=== PATIENT | male | born 1950 | race Caucasian/White ===

== ENCOUNTER 2017-04-24 13:01 | Emergency (ER) | payer OTHER ==
[~2017-04-24] VITALS: Ht 175.3 cm; Wt 70.3 kg
[~2017-04-24 13:01] MED LIST: BLOOD PRESSURE PILL; CHOLESTEROL PILL; HYDROCODONE-AP1 EAC6 PO; IBUPROFEN 800800 M1 PO; METFORMIN HCL500 MG PO
[2017-04-24] MEDS ORDERED: LIPITOR10 MG PO (13:27)
[2017-04-24 13:36] LABS: URINE BILIRUBIN NEGATIVE (Negative); URINE BLOOD TRACE (Negative); URINE CLARITY CLEAR; URINE COLOR YELLOW; URINE GLUCOSE-RANDOM NEGATIVE (Negative); URINE KETONES NEGATIVE (Negative); URINE NITRITE-REFLEX NEGATIVE (Negative); URINE PROTEIN NEGATIVE (Negative); URINE SPECIFIC GRAVITY <= 1.005 (1.005-1.030); URINE UROBILINOGEN 0.2 E.U./dl (0.2-1.0)
[2017-04-24 13:37] LABS: URINE LEUKOCYTES-REFLEX 3+ (Negative)
[2017-04-24 13:41] LABS: ABSOLUTE BASOPHILS 0.1 thou/uL (0.0-0.2); ABSOLUTE EOSINOPHILS 0.2 thou/uL (0.0-0.7); ABSOLUTE LYMPHOCYTES 2.1 thou/uL (0.8-5.3); ABSOLUTE MONOCYTES 0.7 thou/uL (0.0-1.2); ABSOLUTE NEUTROPHILS 6.1 thou/uL (1.6-8.1); BASOPHILS 0.8 %; EOSINOPHILS 1.7 %; HEMATOCRIT 39.1 % (42.0-52.0); HEMOGLOBIN 12.9 gm/dL (14.0-18.0); LYMPHOCYTES 23.2 %; MCH 30.5 pg (26.0-34.0); MCHC 32.9 g/dL (28.0-37.0); MCV 92.7 fL (80.0-100.0); MONOCYTES 8.1 %; MPV 7.2 fl. (7.2-11.1); NUCLEATED RBCS 0 /100WBC; PLATELET COUNT* 403 thou/uL (150-400); POLYS 66.2 %; RBC 4.21 mil/uL (4.50-6.00); RDW-CV 14.3 % (10.5-14.5); WBC 9.2 thou/uL (4.0-11.0)
[2017-04-24 13:43] LABS: CASTS None Seen /LPF (None Seen); CRYSTALS None Seen /LPF (None Seen); MUCUS None Seen strn/LPF (None Seen); SQUAMOUS 0-3 Few /LPF (0-3); URINE RBC 3-10 Few /HPF (0-2)
[2017-04-24 13:49] LABS: CREATININE 0.8 mg/dL (0.6-1.3); POTASSIUM 5.1 mmol/L (3.5-5.1)
[2017-04-24 13:54] LABS: ALBUMIN 3.8 g/dL (3.4-5.0); TOTAL BILIRUBIN 0.3 mg/dL (<0.1-1.0)
[2017-04-24] MEDS ORDERED: PYRIDIUM200 MG PO (15:52)
[2017-04-24] MEDS ORDERED: NORCO 5-325 TA1 EACH PO (15:52)
[2017-04-24] MEDS ORDERED: BACTRIM DS TAB1 EACH PO (15:52)
[2017-04-24 16:02] VITALS: BP 149/83
== END 2017-04-24 16:02 | disposition home or self-care (01) ==
LOC: M.ERS 13:01
PROVIDERS: Nurse Practitioner Family
DX: R10.30 Lower abdominal pain, unspecified (principal); R31.9 Hematuria, unspecified; E11.9 Type 2 diabetes mellitus without complications; I10 Essential (primary) hypertension; F17.210 Nicotine dependence, cigarettes, uncomplicated

== ENCOUNTER 2017-05-03 09:54 | Inpatient (IN) | payer OTHER ==
[~2017-05-03] VITALS: Ht 175.3 cm; Wt 64.0 kg
[~2017-05-03 09:54] MED LIST changes: +BACTRIM DS TAB1 EACH PO; +LIPITOR10 MG PO; +NORCO 5-325 TA1 EACH PO; +PYRIDIUM200 MG PO
[2017-05-03 10:12] LABS: URINE BILIRUBIN NEGATIVE (Negative); URINE BLOOD NEGATIVE (Negative); URINE CLARITY SL CLOUDY; URINE COLOR ORANGE; URINE GLUCOSE-RANDOM TRACE (Negative); URINE KETONES NEGATIVE (Negative); URINE LEUKOCYTES-REFLEX TRACE (Negative); URINE PROTEIN 2+ (Negative); URINE SPECIFIC GRAVITY 1.025 (1.005-1.030)
[2017-05-03 10:13] LABS: URINE NITRITE-REFLEX POSITIVE (Negative)
[2017-05-03 10:19] LABS: SQUAMOUS 0-3 Few /LPF (0-3)
[2017-05-03 10:20] LABS: CASTS None Seen /LPF (None Seen); MUCUS 0-3 Light strn/LPF (None Seen); URIC ACID CRYSTALS >10 Many /LPF (None Seen); URINE RBC 0-2 Rare /HPF (0-2); URINE WBC-REFLEX 6-15 Few /HPF (0-5)
[2017-05-03 10:24] LABS: ABSOLUTE EOSINOPHILS 0.1 thou/uL (0.0-0.7); ABSOLUTE LYMPHOCYTES 1.9 thou/uL (0.8-5.3); ABSOLUTE MONOCYTES 0.7 thou/uL (0.0-1.2); ABSOLUTE NEUTROPHILS 7.1 thou/uL (1.6-8.1); BASOPHILS 0.4 %; EOSINOPHILS 1.5 %; HEMATOCRIT 36.2 % (42.0-52.0); MCH 30.7 pg (26.0-34.0); MCHC 33.2 g/dL (28.0-37.0); MCV 92.6 fL (80.0-100.0); MONOCYTES 7.1 %; MPV 6.7 fl. (7.2-11.1); NUCLEATED RBCS 0 /100WBC; PLATELET COUNT* 366 thou/uL (150-400); RBC 3.91 mil/uL (4.50-6.00); RDW-CV 13.8 % (10.5-14.5); WBC 9.9 thou/uL (4.0-11.0)
[2017-05-03 10:32] LABS: ANION GAP 9 mmol/L (7-16); BUN 24 mg/dL (7-18); CALCIUM 9.6 mg/dL (8.5-10.1); CHLORIDE 100 mmol/L (98-107); CO2 27 mmol/L (21-32); CREATININE 1.6 mg/dL (0.6-1.3); GLUCOSE 125 mg/dL (70-99); POTASSIUM 4.8 mmol/L (3.5-5.1); SODIUM 136 mmol/L (136-145)
[2017-05-03 10:39] LABS: ALBUMIN 3.9 g/dL (3.4-5.0); ALKALINE PHOSPHATASE 86 U/L (46-116); LIPASE 72 U/L (73-393); SGOT 21 U/L (15-37); SGPT 21 U/L (30-65); TOTAL BILIRUBIN 0.4 mg/dL (<0.1-1.0); TOTAL PROTEIN 8.1 g/dL (6.4-8.2); TROPONIN-I LEVEL <0.06 ng/mL (<0.06)
--- NOTE | 2017-05-03 11:58 | NUR ---
NIKKIE NOTIFIED UPON PT RETURN FROM CT. PT CONNECTED TO BP AND PULSE OX
--- NOTE | 2017-05-03 12:30 | NUR ---
pt provided a meal tray from dietary
[2017-05-03] MEDS ORDERED: CIPROFLOXACIN500 M1 PO (12:38)
[2017-05-03 15:00] VITALS: BP 153/83
[2017-05-03 15:11] VITALS: BP 150/75
[2017-05-03] MEDS ORDERED: HYDROCODONE-AP1 EAC6 PO (15:45)
--- NOTE | 2017-05-03 15:59 | NUR ---
ASSUMED CARE OF PATIENT AFTER TRANSFER TO ROOM 110 FROM EMERGENCY DEPARTMENT. PATIENT AWAKE, ALERT, AND ORIENTED APPROPRIATELY. PRESENT. ADMISSION DOCUMENTATION COMPLETED. COMPLAINS OF PAIN AND NAUSEA. GIVEN PRN MEDICATIONS, SEE EMAR FOR DOCUMENTATION. PATIENT DENIES NEEDS AT THIS TIME. CALL LIGHT WITHIN REACH. NURSING WILL CONTINUE TO MONITOR.
--- NOTE | 2017-05-03 18:03 | NUR ---
PATIENT REMAINS ALERT AND ORIENTED. MEDICATED FOR PAIN WITH PRN MEDICATIONS, SEE EMAR FOR DOCUMENTATION. PATIENT IS UP AD GIOVANNY. VITAL SIGNS STABLE. OXYGEN SATURATION WITHIN NORMAL LIMITS ON ROOM AIR. USES CALL LIGHT APPROPRIATELY, WITHIN REACH. DENIES NEEDS AT THIS TIME. NURSING WILL CONTINUE TO MONITOR.
[2017-05-03 20:00] VITALS: BP 135/64
--- NOTE | 2017-05-03 23:13 | NUR ---
THIS NURSE ASSUMES CARE OF PT AT 1930, PT IS ALERT AND ORIENTED X4, PT COMPLAINS OF LLQ AND LRQ PAIN , RATES 10/10, PT REPORTS THAT HE IS NOT GETTING THE SAME AMOUNT OF PAIN MEDS HE TAKES DAILY AT HOME AND WOULD LIKE THE DOSE INCREASED TO WHAT HE TAKES AT HOME, ORDERS HAVE BEEN OBTAINED, PT UP AD GIOVANNY, IV FLUIDS INFUSING, NEW IV TO LEFT FOREARM PLACED DUE TO PT COMPLAINING OF PAIN AT PREVIOUS IV SITE, PT RESTING IN BED AT THIS TIME, REPORT GIVEN TO MOHAMUD PEREZ AT 2912
[2017-05-04 00:18] VITALS: BP 121/76
[2017-05-04 04:01] LABS: HEMATOCRIT 32.5 % (42.0-52.0); HEMOGLOBIN 10.7 gm/dL (14.0-18.0); MCH 30.5 pg (26.0-34.0); MCHC 32.8 g/dL (28.0-37.0); RBC 3.49 mil/uL (4.50-6.00); RDW-CV 13.7 % (10.5-14.5); WBC 6.2 thou/uL (4.0-11.0)
[2017-05-04 04:18] LABS: CALCIUM 8.6 mg/dL (8.5-10.1); CREATININE 1.2 mg/dL (0.6-1.3); MAGNESIUM 1.6 mg/dL (1.8-2.4); POTASSIUM 4.8 mmol/L (3.5-5.1)
--- NOTE | 2017-05-04 05:33 | NUR ---
RESUMED CARE OF PATIENT, REPORT RECIEVED FROM KULWINDER PEREZ. I CONCUR WITH HER DOCUMENTATION. PT AWAKE MOST OF NIGHT. SLEEP MEDICINE GIVEN PER E-MAR, PT STATES THAT HE HAS TO TAKE "REALLY STRONG SLEEP PILLS" IN ORDER TO SLEEP. PT DID NOT STATE WHAT SLEEP PILLS HE TAKES. PT REPORTED SEVERE PAIN IN HIS LOWER ABDOMEN, PAIN MEDS GIVEN PER E-MAR. PT STATED THAT HE NORMALLY TAKES 5 OF HIS PAIN PILLS AT A TIME AT HIS HOUSE. WHEN QUESTIONED ABOUT TAKING THAT MUCH PT STATED THAT HE DOES NOT TAKE THAT MUCH, STATING "I JUST MEANT IT DOESN'T MATTER IF I TAKE ONE PILL OR FIVE PILLS, IT DOESN'T WORK ANY BETTER." PT ASKING IF HE CAN HAVE IV PAIN MEDS. IV PATENT, FLUIDS INFUSING. PT STATES HE IS VOIDING ADEQUATLY AND DOES NOT HAVE PAIN WHEN URINATING, BUT HAS STABBING PAIN AFTER URINATING. WILL CONTINUE WITH PLAN OF CARE.
[2017-05-04 08:00] VITALS: BP 106/72
--- NOTE | 2017-05-04 08:00 | NUR ---
ASSUMED CARE OF PATIENT. AM ASSESSMENT COMPLETE, DEFER TO COMPUTER CHARTING. ALERT ORINETED, ANXIOUS THIS AM- REASSURANCE GIVEN. TOLERATED AM MEAL, IV INFUSING. REPORTING HAVING LEFT LOWER ABD DISCOMFORT, WILL GIVE REPEAT PAIN MEDICATION TO ASSIST WITH PAIN CONTROL.
[2017-05-04 16:00] VITALS: BP 117/77
[2017-05-04 19:45] VITALS: BP 134/72
--- NOTE | 2017-05-05 06:39 | NUR ---
PATIENT HAS REMAINED ALERT AND ORIENTED X 4 THROUGHOUT THE SHIFT AND RESTING QUIETLY ON HOURLY ROUNDS. UP TO BR INDEPENDENTLY. STEADY GAIT. VOIDING ADEQUATELY. BM'S REPORTED YESTERDAY. RASH ON BACK THIS MORNING. PATIENT STATES PRE-EXISTING CONDITION IF HE DOESN'T SHOWER EVERYDAY. SHOWER PROVIDED. PAIN MEDICATIONS PROVIDED X 3 THIS SHIFT. HE GIVES DIFFERENT AREAS OF PAIN EACH TIME. ABDOMEN FROM BOWELS, THEN GROIN WITH ITCHING AND LASTLY BACK RASH. VITAL SIGNS STABLE. CONTINUE TO MONITOR.
[2017-05-05] MEDS ORDERED: SENNA-DOCUSATE1 EACH PO (09:18)
[2017-05-05] MEDS ORDERED: CEFUROXIME500 MG PO (09:18)
[2017-05-05] MEDS ORDERED: LEVSIN0.125 MG SUBLING (09:18)
[2017-05-05 09:55] VITALS: BP 134/72
--- NOTE | 2017-05-05 12:55 | NUR ---
RECIEVED REPORT FROM MOHAMUD AND ASSUMED CARE OF PT AT 0730.PT IS A/O X4 BUT VERY ANXIOUS AND FLIGHT OF THOUGHTS.VSS, LUNGS CLEAR, BM YESTERDAY.IV RIGHT AC AND LEFT FOREARM SALINE LOCKED AND PATENT.PT C/O PAIN 10/10 IN LOWER LEFT ABDOMEN RELIEVED BY MEDICATION. PT IS UP AD GIOVANNY IN ROOM.PT WAS LEFT RESTING IN BED WITH CALL LIGHT IN PLACE.WILL CONTINUE TO MONITOR. DR. LANE SAW PT OK FOR D/C.PT IVS REMOVED @ 1030. DISCHARGE PAPERWORK GONE OVER WITH PT WITH IN THE ROOM.SCRIPTS AND PAPERWORK GIVEN TO PT. ALL PERSONAL BELONGINGS GATHERED AND TAKEN WITH PT. WALKED OUT BY ANA MCKEON AND TO CAR @ 5144.
== END 2017-05-05 12:38 | disposition home or self-care (01) | DRG 689 ==
LOC: M.ERS 09:54 → M.TBA-ER 13:08 → M.ORTHSURG 13:08
PROVIDERS: Physician Assistant; ADMIT Internal Medicine
DX: N30.91 Cystitis, unspecified with hematuria (principal); N17.0 Acute kidney failure with tubular necrosis; E11.9 Type 2 diabetes mellitus without complications; I10 Essential (primary) hypertension; F17.210 Nicotine dependence, cigarettes, uncomplicated; Z85.46 Personal history of malignant neoplasm of prostate; Z79.899 Other long term (current) drug therapy

== ENCOUNTER 2017-05-28 09:12 | Emergency (ER) | payer OTHER ==
[~2017-05-28] VITALS: Ht 175.3 cm; Wt 61.2 kg
[~2017-05-28 09:12] MED LIST changes: +CEFUROXIME500 MG PO; +CIPROFLOXACIN500 M1 PO; +LEVSIN0.125 MG SUBLING; +SENNA-DOCUSATE1 EACH PO
[2017-05-28 09:36] LABS: ABSOLUTE EOSINOPHILS 0.1 thou/uL (0.0-0.7); ABSOLUTE LYMPHOCYTES 1.5 thou/uL (0.8-5.3); ABSOLUTE MONOCYTES 0.8 thou/uL (0.0-1.2); ABSOLUTE NEUTROPHILS 6.4 thou/uL (1.6-8.1); BASOPHILS 0.3 %; EOSINOPHILS 1.1 %; HEMATOCRIT 36.9 % (42.0-52.0); HEMOGLOBIN 12.2 gm/dL (14.0-18.0); LYMPHOCYTES 17.1 %; MCH 30.1 pg (26.0-34.0); MCV 91.3 fL (80.0-100.0); MONOCYTES 8.9 %; MPV 6.7 fl. (7.2-11.1); NUCLEATED RBCS 0 /100WBC; PLATELET COUNT* 466 thou/uL (150-400); POLYS 72.6 %; RBC 4.04 mil/uL (4.50-6.00); RDW-CV 14.5 % (10.5-14.5); WBC 8.9 thou/uL (4.0-11.0)
[2017-05-28 09:44] LABS: URINE BILIRUBIN NEGATIVE (Negative); URINE BLOOD NEGATIVE (Negative); URINE CLARITY CLEAR; URINE COLOR YELLOW; URINE GLUCOSE-RANDOM NEGATIVE (Negative); URINE KETONES NEGATIVE (Negative); URINE LEUKOCYTES-REFLEX NEGATIVE (Negative); URINE NITRITE-REFLEX NEGATIVE (Negative); URINE PROTEIN NEGATIVE (Negative); URINE SPECIFIC GRAVITY 1.015 (1.005-1.030); URINE UROBILINOGEN 0.2 E.U./dl (0.2-1.0)
[2017-05-28 09:45] LABS: CALCIUM 9.8 mg/dL (8.5-10.1); CREATININE 0.7 mg/dL (0.6-1.3); POTASSIUM 4.4 mmol/L (3.5-5.1)
[2017-05-28 09:49] LABS: ALBUMIN 3.4 g/dL (3.4-5.0); TOTAL BILIRUBIN 0.3 mg/dL (<0.1-1.0); TOTAL PROTEIN 8.4 g/dL (6.4-8.2)
[2017-05-28 12:50] VITALS: BP 152/76
== END 2017-05-28 12:51 | disposition home or self-care (01) ==
LOC: M.ERS 09:12
PROVIDERS: Personal Emergency Response Attendant
DX: G89.29 Other chronic pain (principal); R10.31 Right lower quadrant pain; M79.659 Pain in unspecified thigh; E11.9 Type 2 diabetes mellitus without complications; I10 Essential (primary) hypertension; F17.210 Nicotine dependence, cigarettes, uncomplicated; F12.10 Cannabis abuse, uncomplicated

== ENCOUNTER 2018-02-03 17:44 | Inpatient (IN) | payer OTHER ==
[~2018-02-03] VITALS: Ht 172.7 cm; Wt 68.5 kg
--- NOTE | ~2018-02-03 | OP ---
[address] [address] OPERATIVE REPORT Name: LUANA INIGUEZ Room: [address] IN M.R.#: [id number] Admission: 02/03/18 Attend Phys: Silvano Conn MD Discharge: Date of : 48 Report #: [id number] THIS REPORT FOR: //name// CC: Reinaldo Conn DATE OF SERVICE: 02/21/2018 PREOPERATIVE DIAGNOSES: Long-term intubation, acute respiratory failure with multiple re-intubations, encephalopathy, non-ST elevation myocardial infarction. POSTOPERATIVE DIAGNOSES: Long-term intubation, acute respiratory failure with multiple re-intubations, encephalopathy, non-ST elevation myocardial infarction. SURGEON: Keri Oden DO MARZIPAN MAKER SURGEON: Harry Cheek DO SECOND MARZIPAN MAKER: Migue Nuñez, PGY-3. OPERATION PERFORMED: Open tracheostomy. ANESTHESIA: General and local. ESTIMATED BLOOD LOSS: 2 mL. SPECIMEN REMOVED: None. COMPLICATIONS: None. DEVICE USED: Size 8 Shiley tracheostomy. INDICATIONS: The patient is a 67-year-old male that has been an inpatient for some time. He has had multiple failed extubations for mental status and acute respiratory failure. General Surgery was consulted for tracheostomy due to respiratory failure, requiring long-term ventilation. Due to the patient's mental status, his was explained the risks and benefits of surgery and she consented to proceed. TECHNIQUE: After informed consent was obtained, the patient was brought to the operating room and placed in supine position. He was prepped and draped in the usual sterile fashion. He was intubated from the ICU and general anesthesia was administered. A surgical pause was held to confirm proper patient and procedure. A 0.5% Marcaine was used to anesthetize the lower midline neck. The laryngeal prominence and sternal notch were marked. A vertical 3 cm incision was made using a #15 blade. Cautery was used to dissect [place] [address] OPERATIVE REPORT Name: HIRALUANA ABEBE Room: [address] IN [facility].#: [id number] Admission: 02/03/18 Attend Phys: Silvano Conn MD Discharge: Date of : 49 Report #: [id number] with care to stay midline. The strap muscles were identified, elevated and incised using cautery in a vertical fashion. Dissection was carried down until the thyroid was encountered. The thyroid isthmus was again elevated. A handheld LigaSure was used to divide the thyroid isthmus. The 3-0 silk stitches were placed on either side of the divided thyroid to retract laterally. These were clamped to the drapes. Blunt dissection was then used to develop the plane around the tracheal fascia. At this time, all supplies needed for the airway exchange were gathered including the size 8 Shiley tracheostomy. The #11 blade was used to create a horizontal incision between the first and second tracheal rings laterally. The incision was extended inferiorly to create an inferior trap door. The 11 blade was unable to cut the tracheal ring, so Metzenbaum scissors were employed to achieve this. A 3-0 silk stitch was then placed through this trap door and placed inferiorly with some traction. A tracheal hook was used on the superior aspect of the tracheal incision to elevate the trachea. The ET tube was then withdrawn by Anesthesia until just past our tracheal incision. The tracheostomy tube was then inserted directly into the airway. The obturator was removed and the inner cannula was placed. The respiration circuit was then attached to the tracheostomy with immediate confirmation of end tidal CO2. The superior aspect of the incision was then closed with running 4-0 chromic. A 3-0 nylon was used to secure the trach device in a 4-point fashion to the skin. The neck was then cleansed and the trap door stitch was secured to the skin using Steri-Strips, 4 x 4's were applied around the trach to catch all secretions. The patient tolerated the procedure well. All counts were correct at the close of the case. He was transferred back to his ICU bed and transferred back to the ICU in stable condition. By: 1817 1911Cjesi Nuñez DO /jose cruz
[2018-02-03 17:44] VITALS: BP 159/95
--- NOTE | 2018-02-03 18:18 | NUR ---
PT REQUESTING PAIN MEDICATION. WHEN ASKED WHAT HURTS ON HIS BODY, THE PATIENT REQUESTS VICODIN 750'S AND REPORTS THAT IS WHAT HE TAKES AT HOME.
[2018-02-03] MEDS ORDERED: ARICEPT 5 MG TAB5 MG PO (18:30)
[2018-02-03] MEDS ORDERED: VICODIN ES 7.51 EACH PO (18:30)
[2018-02-03] MEDS ORDERED: ACCUNEB SO1.25 MG/1 INH (18:30)
[2018-02-03] MEDS ORDERED: LISINOPRIL5 MG PO (18:31)
--- NOTE | 2018-02-03 18:33 | NUR ---
PT'S ARRIVED TO ED AND REPORTS THAT SHE IS THE ONE WHO CALLED EMS DUE TO THE PATIENT HAVING A SKIN INFECTION ON HIS BUTTOCKS AND ALTERED MENTAL STATUS AFTER THE PATIENT TAKING VALIUM.
[2018-02-03 18:48] LABS: BE 3.7 mmol/L (-2 to +3); PCO2 48.5 mmHg (35.0-45.0); PO2 93.8 mmHg (75.0-100.0)
[2018-02-03 19:08] LABS: HEMATOCRIT 42.7 % (42.0-52.0); HEMOGLOBIN 13.9 gm/dL (14.0-18.0); MCH 28.9 pg (26.0-34.0); MCHC 32.5 g/dL (28.0-37.0); MCV 88.9 fL (80.0-100.0); MPV 7.4 fl. (7.2-11.1); NUCLEATED RBCS 0 /100WBC; PLATELET COUNT* 338 thou/uL (150-400); RDW-CV 15.6 % (10.5-14.5); WBC 11.1 thou/uL (4.0-11.0)
--- NOTE | 2018-02-03 19:12 | NUR ---
THIS NURSE WOKE PATIENT AT THIS TIME AND ASKED HIM FOR A URINE SAMPLE. URINAL GIVEN TO PT.
[2018-02-03 19:15] LABS: APTT 26.8 Seconds (25.0-31.3); INR 1.2; PROTIME 11.9 Seconds (9.20-11.50)
[2018-02-03 19:16] LABS: CALCIUM 9.1 mg/dL (8.5-10.1); CREATININE 1.1 mg/dL (0.6-1.3); POTASSIUM 5.1 mmol/L (3.5-5.1)
[2018-02-03 19:22] LABS: ABSOLUTE EOSINOPHILS 0.1 thou/uL (0.0-0.7); ABSOLUTE LYMPHOCYTES 0.8 thou/uL (0.8-5.3); ABSOLUTE MONOCYTES 0.9 thou/uL (0.0-1.2); ABSOLUTE NEUTROPHILS 9.3 thou/uL (1.6-8.1); ATYPICAL LYMPHS 1 %; METAMYELOCYTES 1 %; PLATELET ESTIMATE ADEQUATE
[2018-02-03 19:34] LABS: ALBUMIN 3.9 g/dL (3.4-5.0); TOTAL BILIRUBIN 0.4 mg/dL (<0.1-1.0); TOTAL PROTEIN 7.9 g/dL (6.4-8.2)
[2018-02-03 19:35] LABS: URINE BILIRUBIN NEGATIVE (Negative); URINE BLOOD 3+ (Negative); URINE CLARITY CLEAR; URINE COLOR YELLOW; URINE GLUCOSE-RANDOM NEGATIVE (Negative); URINE KETONES NEGATIVE (Negative); URINE LEUKOCYTES-REFLEX NEGATIVE (Negative); URINE NITRITE-REFLEX NEGATIVE (Negative); URINE PROTEIN TRACE (Negative); URINE SPECIFIC GRAVITY >= 1.030 (1.005-1.030); URINE UROBILINOGEN 0.2 E.U./dl (0.2-1.0)
[2018-02-03 19:38] LABS: TROPONIN-I LEVEL 0.87 ng/mL (<0.06)
[2018-02-03 19:43] LABS: AMP/METHAMP Negative (Negative); BARBITURATES Negative (Negative); BENZODIAZEPINES POSITIVE (Negative); COCAINE Negative (Negative); METHADONE Negative (Negative); OPIATES POSITIVE (Negative); PCP Negative (Negative); SQUAMOUS 4-10 Moderate /LPF (0-3); THC Negative (Negative)
[2018-02-03 19:44] LABS: BACTERIA-REFLEX None Seen /HPF (None Seen); CASTS None Seen /LPF (None Seen); CRYSTALS None Seen /LPF (None Seen); URINE RBC 0-2 Rare /HPF (0-2); URINE WBC-REFLEX None Seen /HPF (0-5)
[2018-02-03 22:12] LABS: SALICYLATE 3.6 mg/dL (2.8-20.0)
[2018-02-03 22:23] LABS: TROPONIN-I LEVEL 0.63 ng/mL (<0.06)
--- NOTE | 2018-02-03 23:49 | NUR ---
CENTRAL LINE WAS PLACED BY DR. GALLARDO. PLEASE SEE ASSESSMENTS AND VITALS ON PROCEDURE FLOW SHEETS. PT CURRENTLY RESTING BUT VERY ANXIOUS AT TIMES. PULLS ON LINES WHEN HE IS AWAKE. CURRENTLY IN 4 LIMB SOFT RESTRAINTS ORDERED BY DOCTOR. TOLERATED CENTRAL LINE PLACEMENT WELL. MAINTAINS O2 SATS WITH 2 LITERS VIA NC.
[2018-02-04] VITALS (28 sets, daily range): BP systolic 87–155; BP diastolic 50–102
--- NOTE | 2018-02-04 01:41 | NUR ---
PT. ARRIVED VIA CART TO ROOM 4 ICU AT 0000. NO FAMILY PRESENT. PT. IS ALERT BUT UNABLE TO ANSWER ANY ORIENTATION QUESTIONS APPROPRIATELY. 3L O2. PT. IN 4 POINT SOFT RESTRAINTS UPON ARRIVAL TO ICU DUE TO PULLING ON LINES/IMPULSIVENESS/CONFUSION. VERY HARD OF HEARING. CELLULITIS/RASH NOTED ON BUTTOCKS/PIC TAKEN. IVF INFUSING. HEPARIN GTT INFUSING, PTT RECHECK AT 0400. WILL CONTINUE TO MONITOR.
--- NOTE | 2018-02-04 05:29 | NUR ---
PT. REMAINS IN 4 POINT SOFT RESTRAINTS. ORIENTED TO PERSON ONLY AT THIS TIME. KEEPS STATING HE NEEDS TO GET OUT OF HERE. PTT 28, BOLUS GIVEN AND HEPARIN GTT INCREASED PER HEPARIN PROTOCOL. SINUS TACHY, 3L O2. WILL CONTINUE TO MONITOR.
[2018-02-04 08:22] LABS: ABSOLUTE EOSINOPHILS 0.1 thou/uL (0.0-0.7); ABSOLUTE LYMPHOCYTES 0.8 thou/uL (0.8-5.3); ABSOLUTE MONOCYTES 0.6 thou/uL (0.0-1.2); ABSOLUTE NEUTROPHILS 5.3 thou/uL (1.6-8.1); BASOPHILS 0.2 %; EOSINOPHILS 0.8 %; HEMATOCRIT 30.7 % (42.0-52.0); HEMOGLOBIN 10.1 gm/dL (14.0-18.0); LYMPHOCYTES 11.4 %; MCH 29.4 pg (26.0-34.0); MCHC 32.8 g/dL (28.0-37.0); MCV 89.7 fL (80.0-100.0); MONOCYTES 8.6 %; MPV 8.4 fl. (7.2-11.1); NUCLEATED RBCS 0 /100WBC; PLATELET COUNT* 221 thou/uL (150-400); RBC 3.42 mil/uL (4.50-6.00); RDW-CV 15.6 % (10.5-14.5); WBC 6.7 thou/uL (4.0-11.0)
[2018-02-04 08:42] LABS: ALBUMIN 2.9 g/dL (3.4-5.0); CALCIUM 7.8 mg/dL (8.5-10.1); CREATININE 0.8 mg/dL (0.6-1.3); TOTAL BILIRUBIN 0.3 mg/dL (<0.1-1.0); TOTAL PROTEIN 5.4 g/dL (6.4-8.2)
[2018-02-04 09:18] LABS: CHOLESTEROL 160 mg/dL (<200); HDL CHOLESTEROL 39 mg/dL (>40); LDL CHOLESTEROL 100 mg/dL (<100); TC:HDL 4.1 Ratio (Not establshd); TRIGLYCERIDE 109 mg/dL (<150); VLDL 22 mg/dL (<40)
[2018-02-04 09:19] LABS: SERUM ASSESSMENT Clear
--- NOTE | 2018-02-04 10:15 | NUR ---
SPOKE WITH IN THE WAITING ROOM, EXPLAINED ROLE OF CASE MGT. SHE HAS NO QUESTIONS AT THIS TIME ABOUT PLAN OF CARE, SHE SAID NURSES AND DRS HAVE BEEN EXPLAINING THINGS TO HER. CASE MGT TO CONTINUE TO FOLLOW.
[2018-02-04 10:53] LABS: % SATURATION 11 % (20-39); IRON 30 ug/dL (50-175)
[2018-02-04 13:10] LABS: HEPATITIS B SURFACE AG Negative (Negative)
--- NOTE | 2018-02-04 14:49 | CON ---
[address] [address] CONSULTATION Name: LUANA INIGUEZ Room: [address] ADM IN M.R.#: [id number] Admission: 02/03/18 Attend Phys: Silvano Conn MD Discharge: Date of : 49 Report #: [id number] THIS REPORT FOR: //name// CC: Reinaldo Conn DATE OF SERVICE: 02/04/2018 HISTORY OF PRESENT ILLNESS: This is a 67-year-old male patient who is unable to provide any history at all. None of the family member is available or reachable. The history is entirely from the records as well as talking to the nurses. Apparently, he has been falling down recently. He had change in mental status and it is not clear how long this change is going on. On my examination, he is completely confused and unable to follow even simple commands. REVIEW OF SYSTEMS: Unavailable. His 14-point review of system is attempted, is being followed by multiple physicians. He does have slightly increased troponin. Record indicates that there has been history of some syncope, thigh pain, urinary tract infection, multiple falls and rash. This was his 14-point review of systems we will try to continue to reach a family member. He also has a history, per record, of prostate surgery, diabetes, hypertension, urinary retention and chronic opiate use, but that is all from the history. He also indicates he is on Aricept which will tell that he probably has a history of dementia. PAST MEDICAL HISTORY: Unavailable except as described above. FAMILY HISTORY: Unremarkable. SOCIAL HISTORY: His alcohol use is unknown. PHYSICAL EXAMINATION: The patient's examination is pretty limited. GENERAL: He is talking irrelevantly, he cannot follow simple commands. I do not see any meningeal sign. Looks like he moves all four extremities. VITAL SIGNS: Indicate a blood pressure of 160/69, pulse is 109 and he is afebrile at a temperature of 98.5. He does not appear to be in respiratory difficulty. In fact, his pO2 was 93.3 when he came here, although his pCO2 is somewhat high at 48.5. EXTREMITIES: He does not appear to have edema, cyanosis or jaundice. IMAGING: He did have a CT on admission, which was unremarkable except for a question of stroke on the left side. IMPRESSION: Very difficult to form in this patient because no history is available. We will work him up for any encephalopathy. We will continue to try to get any history in this patient because he has benzo, [place] [address] CONSULTATION Name: LUANA INIGUEZ Room: [address] IN [facility].#: [id number] Admission: 02/03/18 Attend Phys: Silvano Conn MD Discharge: Date of : 49 Report #: [id number] positive in his system when he came in. RECOMMENDATIONS: 1. We will attempt to do an EEG. 2. We will try to do a carotid Doppler. 3. It does not look like he has any TIME STUDY TECHNOLOGIST infection, especially because his white count is okay now, but ID is going to evaluate him in that regard and we will defer that to them. 4. I will give him a dose of thiamine and await this workup and try to reach the family again later on today. Thank you very much for this referral and if you have any question, please feel free to contact me. <ELECTRONICALLY SIGNED> By: Ronnie Wiggins MD 02/04/18 1449 1104 [id number] Wiggins MD /nt
[2018-02-04 15:14] LABS: BE 1.8 mmol/L (-2 to +3); PO2 89.8 mmHg (75.0-100.0); pH 7.332 (7.340-7.450)
[2018-02-04 15:15] LABS: PCO2 54.5 mmHg (35.0-45.0)
[2018-02-04 19:14] LABS: GLYCOHEMOGLOBIN (HGB A1C) 6.1 % (4.8-5.6)
--- NOTE | 2018-02-04 19:27 | NUR ---
PT CARE ASSUMED AFTER REPORT. PT ST ON MONITOR. PT KOBY CONFUSED AND DISORIENTED THIS AM. PT DECOMPNSATED THROUGHOUT THE AM. SOA WITH WET SOUNDING LUNGS. DECREASED LOC. PT INTUBATED. SEDATION STARTED. IV LASIX GIVEN. OG PLACED TO JESSICA. JENNIFER TO DD. NO S/S OF PAIN. NOT PROGRESSING TOWARDS GOALS.
[2018-02-04 20:28] LABS: BE -0.5 mmol/L (-2 to +3); PCO2 40.4 mmHg (35.0-45.0); pH 7.397 (7.340-7.450)
[2018-02-04 20:31] LABS: PO2 137.1 mmHg (75.0-100.0)
[2018-02-05] VITALS (19 sets, daily range): BP systolic 87–136; BP diastolic 46–72
[2018-02-05 04:08] LABS: HEMATOCRIT 27.2 % (42.0-52.0); MCH 29.8 pg (26.0-34.0); MCHC 32.9 g/dL (28.0-37.0); MCV 90.5 fL (80.0-100.0); MPV 8.1 fl. (7.2-11.1); RBC 3.01 mil/uL (4.50-6.00); RDW-CV 15.8 % (10.5-14.5); WBC 3.5 thou/uL (4.0-11.0)
[2018-02-05 04:33] LABS: ALBUMIN 2.5 g/dL (3.4-5.0); CALCIUM 7.6 mg/dL (8.5-10.1); CREATININE 0.7 mg/dL (0.6-1.3); MAGNESIUM 1.4 mg/dL (1.8-2.4); POTASSIUM 4.5 mmol/L (3.5-5.1); TOTAL BILIRUBIN 0.4 mg/dL (<0.1-1.0); TOTAL PROTEIN 5.2 g/dL (6.4-8.2)
--- NOTE | 2018-02-05 07:43 | NUR ---
CARE ASSUMMED AND REPORT RECEIVED FORM OFF GOING SHIFT. PT REMIANS ON VENTILATOR SETTINGS TV 600, FIO2 50%, PEEP 5, AND RATE OF 14. ETT 8.0 24 @LIP. OG TUBE INTACT 55CM AT LIP AND CONNECTED TO LIS. HEPARIN GTT INTACT AND INFUSING AT 10.44 /HR VIA PUMP. RODRIGUEZ INTACT AND PATENT DRAINING YELLOW URINE. VSS AND NO ACUTE CHANGES DURING SHIFT. EP SPECIALIST INTACT. WILL CONTINUE OT MONITOR
--- NOTE | 2018-02-05 10:26 | NUR ---
WOUND CARE NOTE: CONSULT RECEIVED FOR CELLULITIS/RASH RIGHT BUTTOCKS. PATIENT PRESENTS WITH TWO AREAS OF DISTINCT CIRCUMFIRENTAL AREAS OF CONCERN. RIGHT POSTERIOR UPPER THIGH: BLANCHABLE REDNESS, DEFINED EDGES. RAISED IN COMPARISON TO SURROUNDING TISSUE. LYDIA-WOUND INTACT. AREA MEASURES 3.5X4.5, NO OPEN AREAS. APPLIED BARRIER OINTMENT WITH ANTIFUNGAL. RIGHT BUTTOCK/SACROCOCCYGEAL REGION: AREA OF BLANCHABLE REDNESS SIMILAR TO THE PREVIOUSLY MENTIONED WOUND. HOWEVER, AT THE SACROCOCCYGEAL REGION THERE IS PURPLE DISCOLORATION WITH BLISTERING. BELIEVE THIS AREA IS A DEEP TISSUE INJURY. ENTIRE AREA MEASURES 13.5X8X0.1. APPLIED BARRIER OINTMENT WITH ANTIFUNGAL. REDNESS NOTED TO RIGHT MEDIAL SCAPULA, SIMILAR TO UPPER THIGH LESION. SPOKE WITH PHYSICIAN, PURPLE DISCOLORATION WAS PRESENT UPON ADMIT. ALL LESIONS MAY HAVE BEEN FROM PATIENT LAYING FOR AWHILE, PATIENT DOES HAVE RHABDO. RED LESIONS MAY BE FROM PRESSURE/LAYING IN ONE POSITION FOR A LONG PERIOD OF TIME BECAUSE ALL OF THE LESIONS SEEM TO BE ON ONE SIDE OF HIS BODY. THERE IS A PURPLE DISCOLORATION TO THE LEFT HEEL, RECOMMEND OFFLOADING AND MONITORING. UNSURE OF ETIOLOGY AT THIS TIME. RECOMMEND TURN Q2 HOURS, KEEP OFF AREAS OF CONCERN CONTINUE WITH SHERINE MATTRESS BARRIER OINTMENT WITH ANTIFUNGAL OFFLOAD BILATERAL HEELS OFF BED LIMIT HOB <30 DEGREES ONCE ABLE LIMIT LAYERS OF LINEN UNDER PATIENT
[2018-02-05 10:37] LABS: CALCIUM 7.7 mg/dL (8.5-10.1); CREATININE 0.8 mg/dL (0.6-1.3)
--- NOTE | 2018-02-05 12:14 | CON ---
[address] [address] CONSULTATION Name: LUANA INIGUEZ Room: [address] ADM IN M.R.#: [id number] Admission: 02/03/18 Attend Phys: Silvano Conn MD Discharge: Date of : 48 Report #: [id number] THIS REPORT FOR: //name// CC: Reinaldo Conn DATE OF SERVICE: 02/04/2018 ATTENDING PHYSICIAN: Dr. Thibodeaux. REASON FOR EVALUATION: Right posterior perineal inflammatory eruption, suggestive of cellulitis in the setting of encephalopathy and suspected pneumonitis as well. HISTORY OF PRESENT ILLNESS: Chart reviewed, patient examined. This is a 67-year-old gentleman who apparently has been progressively getting weaker, has had multiple falls, was evaluated as an outpatient, diagnosed with pneumonitis, placed on azithromycin. He presented again with worsening confusion. On evaluation, he was found to have a markedly indurated erythrodermic type eruption over his right buttock, really difficult to get any reliable history from him at this point. With speaking, he has garbled speech. He clearly has some hearing deficits as well. Evaluation noted initial chest x-ray without acute process. ABGs originally on 2 liters with pO2 of 93.8, pCO2 of 48.5. There is a slight coagulopathy with PT of 11.9. White count was borderline elevated. Lactic acid of 1.7. Of note, however, he had a markedly elevated hepatic transaminases, AST of 2577, ALT of 3990, total bilirubin of 0.4. Lipase was 42. IMAGING: Abdomen and pelvis is pending. ALLERGIES: None known. MEDICATIONS: Include vancomycin, piperacillin/tazobactam. He states that he is on aspirin, lisinopril, donepezil, Haldol. PAST MEDICAL HISTORY: Diabetes mellitus type 2, hypertension, urinary retention, history of prostate surgery in 02/2017. He has chronic pain syndrome with opiate use and dependence. SOCIAL HISTORY: Former smoker, history of fairly heavy ethanol use, marijuana use. FAMILY HISTORY: Noncontributory. REVIEW OF SYSTEMS: [place] [address] CONSULTATION Name: LUANA INIGUEZ Room: [address] IN [facility]#: [id number] Admission: 02/03/18 Attend Phys: Silvano Conn MD Discharge: Date of : 49 Report #: [id number] PHYSICAL EXAMINATION: GENERAL: He appears chronically ill, undernourished. He is quite distressed. Again, he does attempt to engage although his speech is garbled. He has hearing deficits, appears at least moderately uncomfortable. VITAL SIGNS: Temperature 98.5, pulse 109, respirations 18, blood pressure 160/69. SKIN: Warm, dry. HEENT: Extraocular muscles appear to be intact. NECK: Supple. LUNGS: Few scattered coarse breath sounds. HEART: Regular, tachycardic, actually I do not appreciate murmur. ABDOMEN: Appears to be soft, nontender. I do not think there are any peritoneal signs. Right buttock has marked induration over a fairly defined area. He does respond as if significant pain. I can appreciate fluctuance on exam, although I cannot exclude it. GENITOURINARY AND RECTAL: Deferred. LABORATORY DATA: Chest x-ray initially as described above. Repeat showed no focal consolidative infiltrates. Ammonia less than 10. Electrolytes: Sodium 143, potassium 5.0, chloride 107, bicarbonate is 30, anion gap of 6, BUN and creatinine 30 and 0.8. AST of 1197, ALT of 2278, total protein 5.4. Glucose ____, estimated GFR ____. Total CPK of 4570, down from previous CPK of 5067. ASSESSMENT: Erythrodermic inflammatory eruption involving the right buttock. We will await imaging studies. At this point, it is difficult to ascertain clinically, likely need to exclude an abscess or some sort of a necrotizing process. He is quite encephalopathic. It is difficult to ascertain what his baseline is. I agree with empiric broad-spectrum antimicrobial therapy. I did discuss with Dr. Thibodeaux in the event of abnormality seen on CT, probably would involve Surgery given his diabetes, although it does not appear to be significantly uncontrolled. We will have to monitor expectantly. Certainly at risk for infectious complications including aspiration pneumonitis. We will follow. <ELECTRONICALLY SIGNED> By: Tru Shelley MD 02/05/18 1214 1103 [id number] Shelley MD /nt
--- NOTE | 2018-02-05 15:31 | NUR ---
PATIENT TO CT ORDERED. HEPARIN DCD DISCUSSED WITH CARDIOLOGY MARIELOS OKAY WITH THAT.EX CAME TO SEE PATIENT ASKED ME TO CALL DR. DR CALLED PERSON WAS NOWHERE TO BE FOUND. PATIENT APPEARES COMFORTABLE AT THIS TIME. REMAINS ON VNT UNABLE TO DO NIH AT THIS TIME. PROGRESSING SLOWLY.
--- NOTE | 2018-02-05 16:35 | CON ---
[address] [address] CONSULTATION Name: LUANA INIGUEZ Room: [address] ADM IN M.R.#: [id number] Admission: 02/03/18 Attend Phys: Silvano Conn MD Discharge: Date of : 48 Report #: [id number] THIS REPORT FOR: //name// CC: Reinaldo Thibodeaux MD DATE OF SERVICE: 02/04/2018 ATTENDING PHYSICIAN: Shawna Thibodeaux MD. PRIMARY CARE PHYSICIAN: Not known. The patient was admitted late on the evening of 02/03/2018. He is in ICU bed 4. HISTORY OF PRESENT ILLNESS: The patient is a 67-year-old male, prior drinker, possible smoker, came in the hospital with multiple medical problems. He had a history of altered mental status and falls. Social situation is unclear. Family is not available. The patient supposedly lives with a friend, but the friend is . His friend noted frequent falls and altered mental status. He has been somewhat belligerent and agitated, impulsive in the ICU. He has had no fever, poor intake orally and possibly, he had stroke. He appears to have acute liver failure and possibly some rhabdomyolysis. They gave the patient some fluids. He also has some cellulitis. Later on today, the patient had some hypoxemia, had some bradycardia and was intubated. He did have some secretions. After intubation, it was thought whether he is in pulmonary edema or whether he had aspirated from his change in mental status was not really known. Chest x-ray did not look like congestive heart failure, looked more like left lower lobe infiltrate and aspiration. He did have some mild CO2 retention when he was admitted. He was not on oxygen or inhalers at home that was noted. PAST MEDICAL HISTORY: Has abdominal pain, acute liver injury and transaminitis. He had a non-ST elevated myocardial infarction, some renal insufficiency, elevated liver enzymes, cystitis and cellulitis and some chronic pain. ALLERGIES: He has no known medical allergies. OUTPATIENT MEDICATIONS: Reported as metformin 500 mg b.i.d., donepezil or Aricept 5 mg daily for some short-term memory loss, albuterol nebulizers possibly for COPD, hydrocodone for pain, lisinopril and Zestril 5 mg daily for hypertension. He was off atorvastatin and hydrocodone and [place]. OTHER PAST MEDICAL ILLNESSES: Include diabetes mellitus, hypertension, urinary retention, prostate surgery 02/2017, chronic opiate use and abuse. PAST SURGICAL HISTORY: [place] [address] CONSULTATION Name: LUANA INIGUEZ Room: [address] IN ..#: [id number] Admission: 02/03/18 Attend Phys: Silvano Conn MD Discharge: Date of : 48 Report #: [id number] FAMILY HISTORY: Noncontributory. SOCIAL HISTORY: Again, lives with a friend. Question whether he had ever smoked or not and then alcohol use was unknown at this time. Denies any illicit drug use. REVIEW OF SYSTEMS: A 14-point review of systems reviewed and negative except for pertinent positives noted in HPI. PHYSICAL EXAMINATION: GENERAL: This is a moderate distressed 67-year-old male, thin and frail, in moderate distress. He is intubated at this time. He has an 8.0 tube in about 24 cm at the lips. VITAL SIGNS: His blood pressure was 160/70, his heart rate is 96, respirations are 14 over backup rate of 14 and his temperature is afebrile. He is 5 feet 9 inches tall, weight 57 kilograms or 128 pounds, BMI is 19. He is thin and frail at this time. NECK: Supple, without nodes. Mild increase in jugular venous pressure. CHEST: Reveals bilateral rhonchi, expiratory wheeze and bilateral crackles. Bilateral equal breath sounds are noted. Peak airway pressure on the ventilator is 29 cm. He appears mildly hyperinflated. Diminished heart tones are noted. CARDIOVASCULAR: Regular rate and rhythm. Heart rate is 96. No S3 is noted. ABDOMEN: Soft, without masses or megaly. EXTREMITIES: He has some chronic cellulitic changes of both lower extremities. No cyanosis or clubbing. No definite edema. He will respond and move all fours to commands before he was sedated. LABORATORY DATA: From 02/04/2018 at 4:00 a.m. this morning showed hemoglobin is 10, white count 6700, platelets 221,000, normal differential. Sodium this morning is 143, potassium is 5.0, bicarb was elevated at 30, anion gap was 6, BUN was 30, creatinine was 0.8, calcium was 7.8. AST was 1197, which is elevated and ALT was 2278. Creatine kinase was 4570 and albumin slightly low at 2.9, calcium was 7.9. ABGs last night at 1830 on 2 liters showed a pO2 of 93, pH 7.39, pCO2 is 48, bicarbonate is 29, sat was 95%, carboxyhemoglobin is only 0.3. This morning after the code at 3:00 on 60%, 500, assist control of 14 and a PEEP of 5 shows a pO2 of 89, a pH 7.33, pCO2 is 54, bicarbonate is 28, sat was 94%. Chest x-ray shows ET tube in good position and left-sided Port-A-Cath is in place in the SVC and the heart size was normal. ET tube was right at aortic arch and possibly, left lower lobe infiltrate was noted and this film was done at 3:30 p.m. this afternoon. IMPRESSION: 1. Acute cardiopulmonary arrest with respiratory failure, wheezing and bronchospasm, probably related to aspiration. 2. Altered mental status[place] [address] CONSULTATION Name: LUANA INIGUEZ Room: [address] IN .R.#: [id number] Admission: 02/03/18 Attend Phys: Silvano Conn MD Discharge: Date of : 48 Report #: [id number] 3. Rhabdomyolysis, probably with prolonged downtime at home. 4. Transaminitis, could be from passive congestion, could be from prior alcohol use. Etiology not known at this time. PLAN: We will give him some steroids and DuoNeb treatments. Follow up on his blood gases, increase assist control rate to 16, see if that does not help out a little bit of his acidosis and then see how he progresses from here. He will be given propofol and Versed for sedation. We will keep on with some nebulizer treatments and again add some steroids for bronchospasm. I believe he is on some antibiotics at this time. He is on Zosyn and thiamine, also vancomycin, so which should give him adequate coverage. Prognosis is somewhat guarded at this time, but he was alert and responsive. So, we will see how it goes over the next day or two. Thanks again for allowing us to participate in this man's care. It has been a [id number], critical care consult. Dr. Wise has been dictating in the ICU. <ELECTRONICALLY SIGNED> By: Guido Hitchcock MD 02/05/18 1635 1533 1840Vicente Wise MD /nt
--- NOTE | 2018-02-05 17:59 | EKG ---
[place] [address] ELECTROCARDIOGRAM REPORT Name: HIRALUANAJAIME ABEBE Room: [address] ADM IN M.R.#: [id number] Admission: 02/03/18 Attend Phys: Silvano Conn MD Discharge: Date of : 48 Report #: [id number] THIS REPORT FOR: //name// [facility] ED Test Date: 2018-02-03 Test Time: 20:03:06 Pat Name: LUANA INIGUEZ Department: Room: [facility] Gender: M Head Tennis Professional: [facility] : 1950 Requested By: Kenyetta Mckeon Order Number: [id number] MD: Sudhakar Hoffmann Measurements Intervals [place] Rate: 94 P: 75 CA: 166 QRS: -48 QRSD: 104 T: 78 QT: 356 QTc: 446 Interpretive Statements Sinus rhythm Inferior infarct, old Anterior infarct, old Compared to ECG 09/09/2016 16:05:28 Myocardial infarct finding now present Electronically Signed On 02-05-2018 17:59:40 ELECTRICAL ENGINEERING DRAFTING OFFICER by Sudhakar Hoffmann [email or web address] <ELECTRONICALLY SIGNED> By: Sudhakar Hoffmann MD, FACC 02/05/18 1759 02 02 Sudhakar Hoffmann MD, FACC /EPI
--- NOTE | 2018-02-05 17:59 | EKG ---
[place] [address] ELECTROCARDIOGRAM REPORT Name: MIESHALAURELLUANAJAIME ABEBE Room: [address] ADM IN M.R.#: [id number] Admission: 02/03/18 Attend Phys: Silvano Conn MD Discharge: Date of : 48 Report #: [id number] THIS REPORT FOR: //name// [facility] ED Test Date: 2018-02-03 Test Time: 17:54:24 Pat Name: LUANA INIGUEZ Department: Room: [address] Gender: M Counter Molder: Cathy ORELLANA : 1950 Requested By: Kenyetta Mckeon Order Number: [id number] Víctor MD: Sudhakar Hoffmann Measurements Intervals [place] Rate: 96 P: 75 VT: 167 QRS: -55 QRSD: 94 T: 89 QT: 326 QTc: 412 Interpretive Statements Sinus rhythm Inferior infarct, old Anterior infarct, old Compared to ECG 09/09/2016 16:05:28 Myocardial infarct finding now present Electronically Signed On 02-05-2018 17:58:57 LAND CONSERVATION SPECIALIST by Sudhakar Hoffmann [email or web address] <ELECTRONICALLY SIGNED> By: Sudhakar Hoffmann MD, FACC 02/05/18 1758 1754 175 Sudhakar Hoffmann MD, FAC /EPI
[2018-02-06] VITALS (22 sets, daily range): BP systolic 90–139; BP diastolic 46–80
[2018-02-06 03:12] LABS: HEMATOCRIT 27.7 % (42.0-52.0); HEMOGLOBIN 9.2 gm/dL (14.0-18.0); MCH 29.8 pg (26.0-34.0); MCHC 33.4 g/dL (28.0-37.0); MCV 89.2 fL (80.0-100.0); MPV 7.3 fl. (7.2-11.1); RBC 3.1 mil/uL (4.50-6.00); RDW-CV 15.5 % (10.5-14.5); WBC 9.4 thou/uL (4.0-11.0)
[2018-02-06 03:32] LABS: ALBUMIN 2.4 g/dL (3.4-5.0); CALCIUM 7.7 mg/dL (8.5-10.1); CREATININE 0.7 mg/dL (0.6-1.3); MAGNESIUM 1.5 mg/dL (1.8-2.4); POTASSIUM 3.7 mmol/L (3.5-5.1); TOTAL BILIRUBIN 0.3 mg/dL (<0.1-1.0); TOTAL PROTEIN 5.2 g/dL (6.4-8.2)
[2018-02-06 05:24] LABS: BE 3.1 mmol/L (-2 to +3); PCO2 40.8 mmHg (35.0-45.0); PO2 97.7 mmHg (75.0-100.0); pH 7.445 (7.340-7.450)
--- NOTE | 2018-02-06 06:06 | NUR ---
PATIENT PROGRESSING TOWARDS GOALS. NO ACUTE HEMODYNAMIC CHANGES OVERNIGHT. RECEIVED FULL BED BATH TOLERATED WILL. Q2H TURNS AND ORAL CARE. NO BM LAST NIGHT. BLOOD SUGARS TRENDING DOWN. BED TO LOWEST POSITION. WILL CONTINUE TO MONITOR.
--- NOTE | 2018-02-06 18:26 | NUR ---
PT PROGRESSING TOWARD GOALS. PT IS SCHEDULED FOR A WEANING TRIAL IN THE AM. PT CURRENLTY BEING WEANED DOWN ON PROPOFOL. PT'S DAUGHTERS VISITED TODAY. DAUGHTERS ARE CONCERNED THAT FATHER IS NOT RECEIVING APPROPRIATE CARE WHEN HE IS HOME. DAUGHTERS STATED HE DOES NOT HAVE ANYONE TO ASSIST WITH MEDICATIONS, OR ABLE TO LIFT HIM WHEN HE FALLS. SPOKE WITH CASE MANAGEMENT, SHE WILL VISIT WITH FAMILY TOMORROW.
[2018-02-07] VITALS (12 sets, daily range): BP systolic 112–145; BP diastolic 58–83
[2018-02-07 04:19] LABS: HEMATOCRIT 28.7 % (42.0-52.0); HEMOGLOBIN 9.5 gm/dL (14.0-18.0); MCH 29.4 pg (26.0-34.0); MCHC 33.1 g/dL (28.0-37.0); MCV 88.7 fL (80.0-100.0); MPV 7.7 fl. (7.2-11.1); RBC 3.24 mil/uL (4.50-6.00); RDW-CV 15.6 % (10.5-14.5); WBC 16.9 thou/uL (4.0-11.0)
[2018-02-07 05:43] LABS: ALBUMIN 2.5 g/dL (3.4-5.0); CREATININE 0.8 mg/dL (0.6-1.3); MAGNESIUM 1.8 mg/dL (1.8-2.4); POTASSIUM 4.1 mmol/L (3.5-5.1); TOTAL BILIRUBIN 0.4 mg/dL (<0.1-1.0); TOTAL PROTEIN 5.4 g/dL (6.4-8.2)
--- NOTE | 2018-02-07 06:38 | NUR ---
CARE ASSUMMED AND REPORT RECEIVED FROM OFF GOING SHIFT. PT REMAINS N VENTILATOR. SETTINGS AC 16, TV 500, FIO2 30%, PEEP 5. ETT INTACT AND 24 @LIP. OCT INTACT 55 AT LIP, TUBE FEEDING INTACT AND INFUSING AT 30CC/HR VIA PUMP ORDERED. RODRIGUEZ INTACT AND PATENT DRAINING YELLOW URINE TO BEDSID EBAG. VSS AND NO ACUTE CHANGES DURIGN SHIFT. VERSED DCD AT 0510 PREPARING FOR WEANING TRIAL THIS AM. WILL CONITNUE TO MONITOR.
--- NOTE | 2018-02-07 09:45 | NUR ---
Spoke with Michelle and dtr Joycelyn at bedside. Pt and have been for years, but she says when he has health issues she helps him with that or lets him come stay with her for short periods of time. Pt lives in [place] with a friend, lives in [place]. They have one dtr Amy who lives locally, Joycelyn lives in [place] and is here for a few days. Dtr had questions about plans at discharge. Discussed SNF options with them, pt was at [facility] [place] this summer and liked that facility, thought they had good therapy. Then pt got confused one night and walked out into the parking lot. He was then transferred to [facility] due to his wandering, family did not like that facility at all. Provided and dtr list of SNF's within pt's insurance network so they can begin to explore options while dtr is in town. Answered dtr's questions about home health. said pt can come stay with her for awhile if needed but he does not permanently live there. Pt remains on vent, has been able to talk with the physicians today so she has no questions at this time about plan of care, 'it is just one day at a time.' Case Mgt to continue to follow.
--- NOTE | 2018-02-07 10:43 | NUR ---
WOUND CARE NOTE: WAS ASKED TO ASSESS PATIENTS HAND BY PHYSICIAN. PATIENT HAS AN ABRASION TO THE LEFT HAND. ENTIRE HAND WITH 3+ EDEMA AND ABRASION IS DRAINING SEROUS DRAINAGE. WOUND BED WITH MOIST, YELLOW SLOUGH TISSUE. CLEANSED WITH WOUND CLEANSER, PATTED DRY. APPLIED MULTIPLE LAYERS OF VASELINE GAUZE AND COVERED WITH ROLL GAUZE. HAND IS ELEVATED ON PILLOW. REDNESS RIGHT SCAPULA, RIGHT BUTTOCK, RIGHT POSTERIOR UPPER THIGH, AND DTI TO SACRUM/COCCYX REMAIN THE SAME. CONTINUE WITH CURRENT TREATMENT AT THIS TIME. PATIENT IS ON SHERINE MATTRESS AND ON TURN SCHEDULE. DURING ASSESSMENT FAMILY WAS TALKING WITH ANOTHER MEMBER OF THE HEALTHCARE TEAM. ATTEMPTED TO SPEAK WITH FAMILY AGAIN, BUT NOT IN ROOM. LOOKED FOR FAMILY IN WAITING ROOM, BUT NOT THERE. NOTIFIED PATIENT'S RN AND REQUESTED FOR HER TO CALL ME IF THERE WERE ANY FURTHER CONCERNS FROM FAMILY. RECOMMEND CONTINUE WITH CURRENT PLAN OF CARE TO POSTERIOR WOUNDS ELEVATE LEFT HAND ON PILLOWS CHANGE LEFT HAND DRESSING DAILY
--- NOTE | 2018-02-07 12:23 | CON ---
[address] [address] CONSULTATION Name: LUANA INIGUEZ Room: [address] ADM IN M.R.#: [id number] Admission: 02/03/18 Attend Phys: Silvano Conn MD Discharge: Date of : 49 Report #: [id number] THIS REPORT FOR: //name// CC: Reinaldo Conn HISTORY OF PRESENT ILLNESS: This is a 67-year-old gentleman who was brought in to the hospital with altered mental status and frequent falls. The patient was noted to have a possible stroke, rhabdomyolysis, and the GI Service has been consulted for evaluation of acute liver injury. The patient's family is not at bedside, and the patient is unable to answer questions; therefore, the history has been obtained from the patient's medical chart. PAST MEDICAL HISTORY: Apparently of hypertension, hyperlipidemia and diabetes. PAST SURGICAL HISTORY: No significant surgical history has been noted in the chart. SOCIAL AND FAMILY HISTORY: Unable to obtain due to the patient's mental status. REVIEW OF SYSTEMS: Unable to obtain due to patient's mental status. PHYSICAL EXAMINATION: VITAL SIGNS: The patient is somnolent, opens eyes to stimulation. HEENT: Pupils appear pinpoint. LUNGS: Clear to auscultation. CARDIOVASCULAR: Rate and rhythm regular, S1, S2 present. ABDOMEN: Soft. There is no distention, guarding or rigidity. There is no scleral icterus. EXTREMITIES: Warm, well perfused. GENERAL: Overall, the patient appears malnourished and cachectic. VITAL SIGNS: Blood pressure 160/69, pulse rate 109, respirations 18, pulse ox 94%. LABORATORY DATA: Hemoglobin 10.1, hematocrit 30.7, platelet count 221, WBC count 6.7. Sodium 143, potassium 5, chloride 107, bicarbonate 30, BUN 30, creatinine 0.8, total bilirubin 0.3, AST 1197, ALT 2278, alkaline phosphatase 86. Troponin 0.48. INR 1.2. Hepatitis C antibody positive. IMAGING: Abdominal imaging has not been ordered during this admission. ASSESSMENT AND PLAN: This is a pleasant 67-year-old gentleman with past medical history significant for hypertension, diabetes and chronic opiate use, presented to the hospital with altered mental status. The GI Service has been consulted for evaluation of acute liver injury. I will send off lab studies to rule out acute autoimmune hepatitis and viral hepatitis. The patient appears to have positive hepatitis C antibody. We will [place] [address] CONSULTATION Name: LUANA INIGUEZ Room: [address] IN [facility]#: [id number] Admission: 02/03/18 Attend Phys: Silvano Conn MD Discharge: Date of : 48 Report #: [id number] genotype. I suspect his elevated liver enzymes may be due to shock liver. We will continue to monitor and see if they trend towards normal. I am also going to get an abdominal ultrasound with Dopplers of the hepatic vessels to rule out Budd-Chiari syndrome. About 35 minutes were spent with the patient performing physical examination, reviewing chart, formulating a plan of care. Thank you for this consult. GI Service will continue to follow. <ELECTRONICALLY SIGNED> By: Steven Rehman MD 02/07/18 1223 1332 [id number] Rehman MD /nt
[2018-02-07 15:12] LABS: ANA INTERPRETATION Negative (Negative)
--- NOTE | 2018-02-07 18:36 | NUR ---
PT PROGRESSING TOWARD GOALS. PT FAILED WEANING TRIAL THIS AM. PT WENT TO CT OF THE PELVIS THIS AFTERNOON AT 1100 FOR POSSIBILITY OF AN ABCESS. PT CURRENTLY AT GOAL FOR TUBE FEEDING WITH LITTLE RESIDUALS. PT ABLE TO AROUSE WHEN STIMULATED. FAMILY CURRENLTY AT BEDSIDE. FAMILY CONCERNED ABOUT PT GENERAL HEALTH AND QUALITY OF LIFE.
[2018-02-08] VITALS (25 sets, daily range): BP systolic 106–151; BP diastolic 52–75
[2018-02-08 04:11] LABS: HEMOGLOBIN 8.9 gm/dL (14.0-18.0); MCH 30.5 pg (26.0-34.0); MCHC 34.3 g/dL (28.0-37.0); MCV 88.9 fL (80.0-100.0); MPV 7.5 fl. (7.2-11.1); RBC 2.93 mil/uL (4.50-6.00); RDW-CV 16.1 % (10.5-14.5); WBC 8.9 thou/uL (4.0-11.0)
[2018-02-08 04:29] LABS: INR 1.1; PROTIME 11.4 Seconds (9.20-11.50)
[2018-02-08 04:43] LABS: ALBUMIN 2.2 g/dL (3.4-5.0); CALCIUM 7.8 mg/dL (8.5-10.1); CREATININE 0.7 mg/dL (0.6-1.3); MAGNESIUM 1.7 mg/dL (1.8-2.4); POTASSIUM 4.1 mmol/L (3.5-5.1); TOTAL BILIRUBIN 0.3 mg/dL (<0.1-1.0); TOTAL PROTEIN 4.9 g/dL (6.4-8.2)
[2018-02-08 06:03] LABS: BE 4.3 mmol/L (-2 to +3); PO2 63.8 mmHg (75.0-100.0); pH 7.468 (7.340-7.450)
--- NOTE | 2018-02-08 07:04 | NUR ---
SLOW PROGRESSION TOWARDS GOALS, AFEBRILE, NO FURTHER CHANGES IN ASSESSMENT, SEE COMPUTERIZED ASSESSMENT DOCUMENTATION FOR FURTHER DETAILS, SERUM MAGNESIUM 1.7, FOLLOWING ORDERED ELECTROLYTE PROTOCOL, 2GM IV POTASSIUM STARTED VIA INFUSION PUMP THIS AM. NO CHANGE IN VENTILATOR SETTINGS BY RT DURING NOC, SA02 =>90%, GASTRIC RESIDUALS =<45CC DURING NOC WITH GLUCERNA 1.2 VIA OG THROUGH TUBE FEEDING PUMP.
--- NOTE | 2018-02-08 19:23 | NUR ---
PT HAD WEANING TRIAL THAT LASTED 20 MINUTES. HR AND BP INCREASED DURING TRIAL. VSS. PT REPOSITIONED. NYSTATIN APPLIED TO COCCYX PER SURGERY. TUBE FEED RESIDUALS 45ML, 25ML, & 25ML.
[2018-02-09] VITALS (80 sets, daily range): BP systolic 84–153; BP diastolic 42–83
--- NOTE | 2018-02-09 02:30 | NUR ---
TUBE FEEDING AND VERSED GTT STOPPED FOR TTT THIS AM.
[2018-02-09 04:16] LABS: HEMATOCRIT 26.8 % (42.0-52.0); HEMOGLOBIN 8.8 gm/dL (14.0-18.0); MCH 29.1 pg (26.0-34.0); MCV 88.4 fL (80.0-100.0); MPV 7.8 fl. (7.2-11.1); RBC 3.03 mil/uL (4.50-6.00); RDW-CV 16.1 % (10.5-14.5); WBC 9.2 thou/uL (4.0-11.0)
[2018-02-09 04:29] LABS: ALBUMIN 2.1 g/dL (3.4-5.0); CALCIUM 7.9 mg/dL (8.5-10.1); CREATININE 0.6 mg/dL (0.6-1.3); MAGNESIUM 1.8 mg/dL (1.8-2.4); POTASSIUM 4.3 mmol/L (3.5-5.1); TOTAL BILIRUBIN 0.3 mg/dL (<0.1-1.0); TOTAL PROTEIN 4.8 g/dL (6.4-8.2)
--- NOTE | 2018-02-09 05:00 | NUR ---
PROPOFOL GTT OFF FOR TTT WEANING TRIAL.
--- NOTE | 2018-02-09 05:47 | NUR ---
SLOW PROGRESSION TOWARDS GOALS, UNABLE TO TOLERATE TTT THIS AM GREATER THAN 5MIN, SEDATION BACK ON TO MAINTAIN RASS -1, NO FURTHER CHANGES IN ASSESSMENT, SEE COMPUTERIZED ASSESSMENT CHARTING FOR FURTHER DETAILS, SR WITH OCCASIONAL PVC'S TRACING TRAP SETTER, FULL BED BATH PROVIDED, REPOSITION Q2 AND PRN TO PROMOTE SKIN INTEGRITY AND PREVENT SKIN BREAKDOWN, TOLERATING TUBE FEEDING VIA OG, GASTRIC RESIDUALS =<45, RODRIGUEZ PATENT DD, BED IN LOW AND LOCKED POSITON. SAFETY MAINTAINED.
[2018-02-09 16:42] LABS: LIPASE 83 U/L (73-393); TRIGLYCERIDE 100 mg/dL (<150)
--- NOTE | 2018-02-09 18:21 | NUR ---
PT PROGRESSING TOWARD GOALS. PT FAILED TTT THIS AM. POSSIBLE FAIL OF TTT COULD BE ANXIETY. SEDATION CHANGED TO PRECEDEX FROM VERSED. TRIGLICERIDE LEVELS WITHIN NORMAL RANGE. PER DR. BOCANEGRA, PT WILL CONTINUE ON PROPOFOL. PT ABLE TO FOLLOW COMMANDS. PT FAMILY AT BEDSIDE. CONTINUE TO TURN PT LEFT TO RIGHT.
[2018-02-10] VITALS (77 sets, daily range): BP systolic 71–135; BP diastolic 34–62
[2018-02-10 05:13] LABS: HEMOGLOBIN 8.6 gm/dL (14.0-18.0); MCH 29.5 pg (26.0-34.0); MCHC 33.2 g/dL (28.0-37.0); MCV 88.9 fL (80.0-100.0); MPV 8.1 fl. (7.2-11.1); NUCLEATED RBCS 0 /100WBC; PLATELET COUNT* 234 thou/uL (150-400); RBC 2.93 mil/uL (4.50-6.00); RDW-CV 16.1 % (10.5-14.5)
[2018-02-10 05:59] LABS: ALBUMIN 2.1 g/dL (3.4-5.0); CALCIUM 7.7 mg/dL (8.5-10.1); CREATININE 0.7 mg/dL (0.6-1.3); MAGNESIUM 2.4 mg/dL (1.8-2.4); POTASSIUM 4.4 mmol/L (3.5-5.1); TOTAL BILIRUBIN 0.2 mg/dL (<0.1-1.0); TOTAL PROTEIN 4.8 g/dL (6.4-8.2)
--- NOTE | 2018-02-10 06:49 | NUR ---
SLOW PROGRESSION TOWARDS GOALS, NO CHANGE IN VENTILATOR SETTINGS DURING NOC BY RT, TITRATION PROPOFOL GTT DOWN TOLERATED AND INCREASED PRESEDX GTT TO MAINTAIN RASS -2. HYPOTENSIVE, PROPOFOL DECREASED HELPFUL FOR B/P MAP =>60, SERUM MAGNESIUM LEVEL 1.8, MAGNESIUM 2GM IV VIA INFUSION PUMP GIVEN PER ELECTROLYTE PROTOCOL, MAGNESIUM REPLACEMENT EFFECTIVE, SERUM MAGNESIUM 2.4 THIS AM. REPOSITIONING Q2 AND PRN TO PROMOTE COMFORT AND MAINTAIN SKIN INTEGRITY. FREE H20 150CC FLUSHES Q4 VIA OG ADMINISTERED PER ORDER. REMAINS ON JEVITY 1.2 AT GOAL RATE 50CC/HR VIA TUBEFEEDING PUMP. FULL BED BATH GIVEN. SB/SR TRACING SKIP MINER HR HIGH 50'S TO 60'S. SAFETY MAINTAINED.
[2018-02-10 07:03] LABS: ABSOLUTE LYMPHOCYTES 0.6 thou/uL (0.8-5.3); ABSOLUTE MONOCYTES 0.1 thou/uL (0.0-1.2); ABSOLUTE NEUTROPHILS 6.4 thou/uL (1.6-8.1); METAMYELOCYTES 1 %; PLATELET ESTIMATE ADEQUATE
[2018-02-10 09:00] LABS: BE 5.4 mmol/L (-2 to +3); PCO2 44.3 mmHg (35.0-45.0); PO2 88.7 mmHg (75.0-100.0); pH 7.448 (7.340-7.450)
--- NOTE | 2018-02-10 09:30 | NUR ---
PT EXTUBATED AT 0920 THIS AM. PT UNABLE TO COMMUNICATE THROUGH WORDS. HE IS ABLE TO SHAKE HIS HEAD YES AND NO TO QUESTIONS. PT GETS VERY FRUSTRATED WHEN TRYING TO SPEAK. CALLED PT'S FAMILY, THEY WILL BE UP THIS AFTERNOON TO SEE HIM.
[2018-02-10 10:34] LABS: BE 3.4 mmol/L (-2 to +3); PCO2 41.1 mmHg (35.0-45.0); PO2 108.1 mmHg (75.0-100.0); pH 7.447 (7.340-7.450)
--- NOTE | 2018-02-10 11:38 | NUR ---
CONTINUING TO FOLLOW PATIENT ALONG WITH DR. PAN. PATIENT REMAINS INTUBATED IN ICU. WILL CONTINUE TO FOLLOW.
--- NOTE | 2018-02-10 17:52 | NUR ---
PT PROGRESSING TOWARD GOALS. PT RICAENLTY ABLE TO UNDERSTAND WHY HE IS IN THE HOSPITAL AND THAT HE IS UNABLE TO EAT OR DRINK. PT COMPLAINS OF EAR PAIN. PT CURRENLTY ON PRECEDEX TO ASSIST WITH ANXIETY. PT RICAENLTY ON 2L NC TO ASSIST WHILE SLEEPING. PT APPEARS TO HAVE SLEEP APNEA. PT ASKED TO HAVE A PILLOW USED INSTEAD OF WEDGES. HE COMPLAINS THAT WEDGES HURT.
--- NOTE | 2018-02-10 21:28 | NUR ---
FSBS 124, TUBE FEEDING DC TODAY, SOLUMEDROL IV DC'D TODAY, DECREASED HIGH DOSE SLIDING SCALE INSULIN REGIMEN TO LOW DOSE REGIMEN, WILL CONTINUE TO MONITOR AND TX INDICATED.
[2018-02-11] VITALS (9 sets, daily range): BP systolic 136–173; BP diastolic 33–80
[2018-02-11 02:06] LABS: HCV QUANT BY PCR HCV Not Detected IU/mL (())
[2018-02-11 03:44] LABS: HEMATOCRIT 30.7 % (42.0-52.0); MCH 29.1 pg (26.0-34.0); MCHC 32.5 g/dL (28.0-37.0); MCV 89.7 fL (80.0-100.0); MPV 7.7 fl. (7.2-11.1); RBC 3.42 mil/uL (4.50-6.00); RDW-CV 16.2 % (10.5-14.5); WBC 13.5 thou/uL (4.0-11.0)
[2018-02-11 04:05] LABS: ALBUMIN 2.5 g/dL (3.4-5.0); CALCIUM 8.2 mg/dL (8.5-10.1); CREATININE 0.7 mg/dL (0.6-1.3); MAGNESIUM 1.6 mg/dL (1.8-2.4); POTASSIUM 3.7 mmol/L (3.5-5.1); TOTAL BILIRUBIN 0.5 mg/dL (<0.1-1.0); TOTAL PROTEIN 5.3 g/dL (6.4-8.2)
--- NOTE | 2018-02-11 06:36 | NUR ---
AWAKE, ALERT TO SELF, CONFUSED, AND CONVERSATIVE ALL SHIFT, YELLING OUT AT TIMES. REDIRECTABLE AT TIMES. EMOTIONAL SUPPORT PROVIDED. ATIVAN 2MG IVP PRN X1, AND HALIDOL 5MG IVP X1 PRN FOR AGITATION/ANXIETY GIVEN WITH MINIMAL HELPFUL EFFECT, GENERALIZED WEAKNESS, UP TO BSC X3 WITH X2 ASSIST. GUL[place], FOLLOWING SIMPLE COMMANDS. REMAINS NPO PER ORDER. FREQUENT ORAL CARE PROVIDED, SAO2 =>95% ON OXYGEN 3L PER NC, FREQUENT SELF REMOVAL NC, SAO2 REMAINED STABLE WITH REMOVAL OF NC. SERUM MAGENSIUM 1.6 THIS AM. ONE BAG MAGNESIUM SULFATE 2GM VIA INFUSION PUMP INITATED PER ELECTROLYTE PROTOCOL. BED ALARM ON FOR SAFETY. FREQUENT VERBAL/DEMONSTRAION CALL LIGHT USE PROVIDED. CALL LIGHT REMAINS IN REACH.
--- NOTE | 2018-02-11 07:50 | NUR ---
PATIENT TOLERATED THIN LIQUIDS. NO WETNESS IN VOICE. FOLLOWS COMMANDS VERY K[place]. TRANSFERED TO RM 211.
--- NOTE | 2018-02-11 10:45 | NUR ---
RECIEKVIED REPORT FROM ANA GONZALEZ IN ICU OF EXPECTED TRANSFER AROUND 0730- PT ARRIVED TO UNIT AROUND 0800- HEAT TREATER APPRENTICE PLACED ORDERED, TRACING SR- UPON ASSESSMENT PT NOTED TO BE RESTING IN BED- EXPRESSESS WISHES TO SPEAK WITH , CALLED PER PHONE WITH NO ANSWER RECIEVIED- PT A&O X1 WITH NOTED CONFUSSION- INCONTINENT OF BOWEL, RODRIGUEZ IN PLACE D/D CLEAR YELLOW URINE- BED REST IN PLACE WITH Q HOUR TURNS INDICATED- LCTA, RESP EVEN AND UN-LABORED- OCCASIONAL WET COUGH NOTED- VSS, O2 SAT 98% ON RA- ABDOMEN SOFT/ROUND/NON-TENDER, BS X4 QUADS- LAST BM REPORTED 02/10/18- TRIPLE LUMEN SUB-CLAV PICC NOTED INTACT AND SL- MECHANICAL GROUND DIET INITIATED THIS AM WITH ACCU CHECKS CHANGED TO ACHS- BARRIOR/NYSTAIN TO COCCYX AND LYDIA-AREA PRESCIBED THIS AM- SCD'S IN PLACE INDICATED- PT DENIES ANY C/O PAIN/DISCOMFORT AT THIS TIME- CALL LIGHT AND PERSONAL BELONGINGS WITH IN REACH- BED ALARM IN PLACE AND WORKING FOR PT SAFETY- HOURLY ROUNDS IN PLACE R/T SAFETY/NEEDS- ALL NEEDS MET AT THIS TIME-WCTM
--- NOTE | 2018-02-11 16:54 | NUR ---
PT LISA RESTING IN BED, AND DAUGHTER LISA AT BED SIDE VISITING- CARPENTER RAILCAR IN PLACE ORDERED, TRACING ST THIS SHIFT- GOOD PO INTAKE NOTED THIS SHIFT WITH LUNCH- REGLAN GIVEN PRESCIBED- PT NOTED TO BE RESTLESS AT TIMES, PULLING ON RODRIGUEZ- CONTINUED CONFUSION NOTED- SCHEDULED ATIVAN PRECIBED, NOTED TO VIGNESH EFFECTIVE- NEW ORDER NOTED FOR THIAMINE IV X1 AND GIVEN PRESCIBED- MG NOTED AT 1.6 THIS AM WITH 1 BAG MG IV NOTED TO HAVE BEEN GIVEN, REDRAW AT 1500 NOTED AT 1.7- 1 BAG MG IV GIVEN AT 1517, REDRAW SCHEDULED FOR 1745- BS MONITORED PRESCIBED, NO NEED FOR SSI THIS SHIFT- Q [address] INDICATED- PT NOTED TO HAVE LARGE SIZE LOOSE BM THIS SHIFT- PT TITRATED OF O2 THIS SHIFT, NOTED TO BE STATING 96% ON RA- FREQUENT CHECKS IN PLACE- ALL NEEDS MET AT THIS TIME-WCTM
[2018-02-12] VITALS (29 sets, daily range): BP systolic 63–180; BP diastolic 35–98
[2018-02-12 05:44] LABS: PREALBUMIN 29.3 mg/dL (18.0-35.7)
[2018-02-12 06:05] LABS: ABSOLUTE EOSINOPHILS 0.1 thou/uL (0.0-0.7); ABSOLUTE LYMPHOCYTES 1.6 thou/uL (0.8-5.3); ABSOLUTE MONOCYTES 1.2 thou/uL (0.0-1.2); ABSOLUTE NEUTROPHILS 5.9 thou/uL (1.6-8.1); BASOPHILS 0.4 %; EOSINOPHILS 0.6 %; HEMATOCRIT 27.5 % (42.0-52.0); HEMOGLOBIN 9.2 gm/dL (14.0-18.0); LYMPHOCYTES 18.3 %; MCH 29.4 pg (26.0-34.0); MCHC 33.3 g/dL (28.0-37.0); MCV 88.2 fL (80.0-100.0); MONOCYTES 13.7 %; MPV 7.8 fl. (7.2-11.1); NUCLEATED RBCS 0 /100WBC; PLATELET COUNT* 365 thou/uL (150-400); RBC 3.12 mil/uL (4.50-6.00); RDW-CV 16.3 % (10.5-14.5); WBC 8.8 thou/uL (4.0-11.0)
[2018-02-12 06:18] LABS: ALBUMIN 2.6 g/dL (3.4-5.0); CALCIUM 8.1 mg/dL (8.5-10.1); CREATININE 0.6 mg/dL (0.6-1.3); TOTAL BILIRUBIN 0.6 mg/dL (<0.1-1.0); TOTAL PROTEIN 5.4 g/dL (6.4-8.2)
--- NOTE | 2018-02-12 08:28 | NUR ---
RECEIVED REPORT AND ASSUMED CARE AT 1900.VSS. CARDIAC MONITORING IN PLACE. DENIES ANY COMPLAINTS OF PAIN. ASSESMENT COMPLETED CHARTED. PT VERY CONFUSED WILL ANSWER TO NAME. PT HALLUCINATING THERE ARE "RATS, BIG RATS IN HERE... GO TELL HER THEY ARE GOING TO GET THEM" "COBRA IS 5 TIMES DEADLIEST THAN THE SNAKE YOU HAD" PT BECAME AGITATED WITH THE COBRA IN THE ROOM. REASSURANCE, THERAPEUTIC COMMUNICATION USED. PRN MEDICATION ADMIN PER ORDERS. BED LOCKED IN LOWEST POSITION, CALL LIGHT WITHIN REACH, BED ALARM ON .POSITION CHANGED EVERY TWO HOURS AND PRN, HEELS OFF LOADED. HOURLY ROUNDING COMPLETED AND ALL NEEDS MET. NURSING WILL CONTINUE TO MONITOR
--- NOTE | 2018-02-12 09:39 | NUR ---
ASSUMED CARE OF PT THIS AM AROUND 0715- WEDDING CONSULTANT IN PLACE ORDERED, TRACING SR/ST- UPON ASSESSMENT PT NOTED TO BE RESTING IN BED- PT A&O X1 WITH NOTED CONFUSSION, PT RESTLESS AT TIMES AND NOTED TO BE PULLING ON RODRIGUEZ- INCONTINENT OF BOWEL, RODRIGUEZ IN PLACE D/D CLEAR YELLOW URINE- BED REST IN PLACE WITH Q 2HOUR TURNS INDICATED- LOW AIR LOSS MATTRESS ORDERED THIS AM INDICATED- COURSE WET LUNG SOUNDS NOTED, POOR COUGH EFFORT NOTED- VSS, O2 SAT 92% ON RA- SET UP WITH MEALS, GOOD PO INTAKE NOTED- ABD SOFT/ROUND/NON-TENDER, BS X4 QUADS- PT NOTED TO HAVE BM THIS AM- DRESSING TO COCCYX NOTED INTACT THIS AM WITH NO NEED TO CHANGE- LEFT SUB CLAV TRIPLE LUMEN PICC NOTED C/D/I, SO S/S INFECTION TO SITE- BARRIOR CREAM TO LYDIA AREA INDICATED- K+ NOTED AT 3.0 THIS AM, AND CURRENLTY BEING REPLACED PER PROTOCOL WITH REDRAW TO FOLLOW-PT DENIES ANY C/O PAIN/DISCOMFORT AT THIS TIME- CALL LIGHT AND PERSONAL BELONGINGS WITH IN REACH- HOURLY ROUNDS IN PLACE R/T SAFETY/NEEDS- BED ALARM IN PLACE AND WORKING FOR PT SAFETY- ALL NEEDS MET AT THIS TIME-WCTM
[2018-02-12 15:39] LABS: BE 3.1 mmol/L (-2 to +3); PCO2 60.1 mmHg (35.0-45.0); pH 7.324 (7.340-7.450)
--- NOTE | 2018-02-12 15:57 | NUR ---
PT NOTED TO BECOME VERY LABORED IN BREATHING WITH WET GURGLING SOUNDS NOTED IN UPPER AIR WAYS, POST BREAKFAST THIS AM- PT HAS POOR COUGH EFFORT AND UNABLE TO EXSPEEL FLUIDS FROM THROAT ON OWN- O2 SAT DECRESED IN MID 80'S WITH O2 APPLIED AT 5L WITH NOTED IMPROVEMENT-BREATHING TX ORDERED AND GIVEN AND 1X ORDER PER CHAR OBTAINED FOR NTS- BREATHING TX GIVEN PER RT WITH NTS PREFORMED, PT NOTED TO HAVE IMPROVEMENT WITH O2 DECRESED TO 2L PER NC AND PT ABLE TO SLEEP FOR AWHILE- AROUND 1515 PT NOTED TO LABORED IN BREATHING AGAIN AND O2 SAT DSECRESED IN 70 O2 APPLIED AT 10L WITH IMPROVEMENT NOTED- WITH SUCTIONING PERFORMED AT BED SIDE- PT NOTED TO BE PRESPIRING WITH BS NOTED AT 197-ABG TAKEN AND RESULTED WITH BIPAP APPLIED PER RT- ABG RESULTS ALONG WITH CLINICAL FINDINGS AND CHEST X-RAY RESULTS SEEN PER WITH ORDERS RECIEVED TO TRANSFER TO ICU TO BE VENTED- FAMILY AT BEDSIDE AND UPDATED ON PLANS AND OKAY WITH INTERVENTIONS AT THIS TIME- PT CURRENLTY ON BIPAP AWAITING TRANSFER- ALL NEEDS MET AT THIS TIME-WCTM
[2018-02-12 18:09] LABS: BE -1.4 mmol/L (-2 to +3); PCO2 37.2 mmHg (35.0-45.0); pH 7.407 (7.340-7.450)
[2018-02-12 18:10] LABS: PO2 164.1 mmHg (75.0-100.0)
--- NOTE | 2018-02-12 19:10 | NUR ---
ASSUMED CARE OF PATIENT REINTUBATED AND SEDATED. VS WNL. REPORT GIVEN TO NOC NURSE. ET TUBE AND OG VERIFIED BY RADIOLOGY,
--- NOTE | 2018-02-12 21:05 | NUR ---
ORAL TEMP 100.9, BLANKETS REMOVED, COVERING PT WITH X1 SHEET, FAN ON TO ASSIST WITH HYPERTHERMIA.
[2018-02-13] VITALS (78 sets, daily range): BP systolic 64–133; BP diastolic 36–83
--- NOTE | 2018-02-13 04:39 | NUR ---
FENTANYL GTT TITRATION DURING SHIFT, >25MCG/HR B/P DECREASES HYPOTENSIVE SBP 60'S/ DIASTOLIC 30'S. INCREASED HR ST 120'S TO 150'S INTERMITTENLY WITH FENTANYL GTT 25MCG/HR, PT AWAKE, ALERT, AND PULLING AGAINST BILAT WRIST RESTRAINTS, GRASPING TIGHTLY AGAINST BEDDING AND MATTRESS, ANXIOUS/AGITATED. [place], ATTEMPTS ORIENTATION PLACE AND SITUATION AND EMOTIONAL SUPPORT UNSUCCESSFULL. SPOKE WITH DR DEE JOURNALISM INSTRUCTOR FOR DR VALENCIA VIA TELEPHONE, UPDATED DIFFICULTY WITH SEDATION, COMFORT, B/P AND HR, NEW ORDERS RECEIVED TO INCREASE VERSED MAX TITRATION TO 12MG IV. WILL INITIATE ORDERS AND CONTINUE TO MONITOR.
[2018-02-13 06:15] LABS: BE 6.4 mmol/L (-2 to +3); PCO2 37.3 mmHg (35.0-45.0); pH 7.516 (7.340-7.450)
[2018-02-13 06:16] LABS: PO2 130.7 mmHg (75.0-100.0)
--- NOTE | 2018-02-13 07:11 | NUR ---
NOT PROGRESSING TOWARDS GOALS, VERSED MAXED 12MG/HR VIA INFUSION PUMP, FENTANYL AT 25MCG/HR PT CONTINUED TO BE HYPOTENSIVE, FENTANYL GTT STOPPED. B/P NORMALTENSIVE WITHOUT FENTANYL, PT DROWSY, ANXIOUS WITH TACTILE STIMULI, FEBRILE 100.6 ORAL, FAN ON AND ALL COVERS REMAIN OFF WITH ONLY SHEET FOR COVERING. ST TRACING CADIAC MONITOR HR ONE-TEENS TO 150'S, HR 100 AT THIS TIME. RODRIGUEZ PATENT TO DD, 550 VIVIANA URINE. SAO2 =>97% ALL NOC.
--- NOTE | 2018-02-13 11:37 | NUR ---
WOUND NURSE: PATIENT SEEN FOR F/U INTEGUMENTARY ASSESSMENT PERTAINING TO LESIONS ON SACRAL AND BUTTOCK REGION. PRESENTS WITH NO OPEN WOUNDS, PINKISH-RED, MACULAR RASH, AREA IS BLANCHEABLE EXCEPT FOR COCCYGEAL AREA WHICH PRESENTS DARK RED, INTACT, NONBLANCHEABLE. SACRUM PROTECTED WITH FOAM DRESSNIG AFTER CLEANSING POST FECAL INCONTINENCE. REMAINING AREA TREATED WITH ANTIFUNGAL ABBY.
--- NOTE | 2018-02-13 13:03 | NUR ---
PATIENT REMAINS INTUBATED AND SEDATED RESPONDS TO VOICE. AFEBRILE. SPOKE WITH PT CALLED.
--- NOTE | 2018-02-13 16:04 | NUR ---
SPOKE WITH AND DTR AT BEDSIDE. PT TRANSFERRED TO ICU YESTERDAY AND REINTUBATED. SAID SHE HAS TALKED WITH DR. MEDINA, SHE IS CONSIDERING MAKING PT DNR. FAMILY DOESN'T FEEL THAT PT WOULD WANT A TRACH OR PEG, IF IT COMES TO THAT. PROVIDED SUPPORT. WILL CONTINUE TO FOLLOW.
--- NOTE | 2018-02-13 17:57 | NUR ---
CONTINUING TO FOLLOW PATIENT ALONG WITH DR. PAN. PATIENT REMAINS IN ICU AND WAS REINTUBATED. WILL FOLLOW.
[2018-02-14] VITALS (52 sets, daily range): BP systolic 80–150; BP diastolic 28–80
--- NOTE | 2018-02-14 00:10 | NUR ---
FSBS 310, LAST 2 FSBS GREATER THAN 200, INCREASED HUMALOG INSULIN REGIME FROM LOW DOSE TO MODERATE DOSE REGIME PER SLIDING SCALE INSULIN PROTOCOL.
[2018-02-14 05:42] LABS: BE 7.6 mmol/L (-2 to +3); pH 7.387 (7.340-7.450)
[2018-02-14 05:44] LABS: PCO2 57.3 mmHg (35.0-45.0); PO2 > 488.8 mmHg (75.0-100.0)
--- NOTE | 2018-02-14 06:25 | NUR ---
SLOW PROGRESSION TOWARDS GOALS, REMAINS ON VENTILATOR, NO CHANGE IN SETTINGS DURING NOC BY RT. REMAINS SEDATED WITH FETANYL AND VERSED GTT TITRATION PER POLICY, FOLLOWING SIMPLE COMMANDS, [place], DIFFICULT WITH PT HEARING STAFF R/T HEARING LOSS. FULL BED BATH AND HAIR SHAMPOO DONE, SB/SR/ST TRACING BOTTLE PACKING MACHINE CLEANER. HR 50'S T0 ONE-TEENS. NYSTATIN CREAM APPLIED TO SACROCOCCAGEAL LUCILLE, MEPILEX APPLIED. SA02 =>96% ALL SHIFT FIO2 REMAINS 30%. CATHFLOW WHITE PORT OF TRIPLE LUMEN CENTRAL LINE EFFECTIVE, ALL PORTS CENTRAL LINE ASPIRATE BLOOD RETURN WITHOUT DIFFICULTY. TOLEATING JEVITY 1.5 VIA OG 50CC/HR. GASTRIC RESIDUALS =<10CC. FREE H20 FLUSHES VIA OG 150CC [id number] ADMINISTERED PER ORDER. SAFETY MAINTAINED.
[2018-02-14 08:49] LABS: HEMATOCRIT 21.7 % (42.0-52.0); HEMOGLOBIN 7.3 gm/dL (14.0-18.0); MCH 30.1 pg (26.0-34.0); MCHC 33.6 g/dL (28.0-37.0); MCV 89.3 fL (80.0-100.0); MPV 7.5 fl. (7.2-11.1); NUCLEATED RBCS 0 /100WBC; PLATELET COUNT* 314 thou/uL (150-400); RBC 2.43 mil/uL (4.50-6.00); RDW-CV 16.1 % (10.5-14.5); WBC 9.4 thou/uL (4.0-11.0)
[2018-02-14 09:12] LABS: ALBUMIN 2.1 g/dL (3.4-5.0); CALCIUM 7.8 mg/dL (8.5-10.1); CREATININE 0.7 mg/dL (0.6-1.3); POTASSIUM 3.7 mmol/L (3.5-5.1); TOTAL BILIRUBIN 0.3 mg/dL (<0.1-1.0); TOTAL PROTEIN 4.7 g/dL (6.4-8.2)
--- NOTE | 2018-02-14 09:23 | NUR ---
PT ARROUSABLE. NOT FOLLOWING COMMANDS. SYSTOLIC BP IN 80'S. MAP 55 OR HIGHER. RELAYED THIS TO DR SIMS AND DR VALENCIA. WITH REOPOSITION SYSTOLIC BP ELEVATES TO 114. RECEIVED ORDER TO MAINTAIN BP >55. PT REPOSITIONED. MEDICATIONS GIVEN VIA TUBE. ORAL CARE GIVEN.
[2018-02-14 09:28] LABS: ABSOLUTE LYMPHOCYTES 0.8 thou/uL (0.8-5.3); ABSOLUTE MONOCYTES 0.1 thou/uL (0.0-1.2); ABSOLUTE NEUTROPHILS 8.6 thou/uL (1.6-8.1); ATYPICAL LYMPHS 2 %; PLATELET ESTIMATE ADEQUATE
--- NOTE | 2018-02-14 11:03 | NUR ---
PT AWAKE, PULLING AT TUBES, HITTING HAND AGAINST BED, PT HAS FEET IN AIR, PT TRYING TO SIT UP IN BED. VERSED MAXED OUT AND FENTANYL ON 50MCG. PULMONARY NOTIFIED AND RECEIVED ORDER FOR PRECEDEX. PRECEDEX STARTED WILL CONTINUE TO MONITOR.
--- NOTE | 2018-02-14 16:06 | NUR ---
CALLED AND SPOKE WITH YEN BY PHONE. SHE SAID SHE HAD GONE HOME TO REST SHE WAS EXHASUTED. SHE SAID SHE WAS ABLE TO TALK TO THE HOSPITALIST AND NEUROLOGIST TODAY. SHE SAID FOR NOW SHE WANTS TO CONTINUE ALL CURRENT TREATMENT, SHE UNDERSTANDS THE PLAN WILL BE TO CONTINUE TO WORK TOWARDS SEEING IF PT CAN BE EXTUBATED, BUT THAT DOESNT CHANGE THE ISSUES WITH HIS COGNITION, ETC. WHEN ASKED, YEN SAID SHE HAD NO QUESTIONS ABOUT PLAN OF CARE. CASE MGT WILL CONTINUE TO FOLLOW.
--- NOTE | 2018-02-14 16:36 | NUR ---
TUBE FEEDING STOPPED THIS SHIFT FOR RESIDUAL OF 60ML. TUBE FEEDING RESTARTED. FOR SEDATION PT CURRENTLY ON PRECEDEX 0.3 MCG/KG/HR. PT RESPONSIVE, BUT RELAXED. NOT PULLING AT TUBES.
--- NOTE | 2018-02-14 20:31 | NUR ---
PT AGITATED, PULLED OUT OG, ATTEMPTED TO PULL OUT ETT, NOT FOLLOWING VERBAL COMMANDS. KICKING BILAT LEGS. TRYING TO PUSH UP WITH ARMS AND LEGS TO GET OOB. TITRATED PRESEDX TO MAX 1.4MCG/KG/HR, VERSED 2MG IVP GIVEN 1, VERSED PUSH NOT EFFECTIVE, RESTARTED VERSED GTT, TITRATED VERSED GTT UP TO 4MG/HR, REPOSITIONED, EMOTIONAL SUPPORT PROVIDED. RT TO ROOM TO REPOSITON ETT HOLTER. PT HAD PULLED AND ATTEMPTED TO REMOVE.
[2018-02-15] VITALS (25 sets, daily range): BP systolic 86–145; BP diastolic 40–64
[2018-02-15 03:49] LABS: ABSOLUTE LYMPHOCYTES 1.1 thou/uL (0.8-5.3); ABSOLUTE MONOCYTES 0.7 thou/uL (0.0-1.2); ABSOLUTE NEUTROPHILS 6.2 thou/uL (1.6-8.1); BASOPHILS 0.2 %; HEMATOCRIT 23.6 % (42.0-52.0); HEMOGLOBIN 7.7 gm/dL (14.0-18.0); LYMPHOCYTES 13.3 %; MCH 29.5 pg (26.0-34.0); MCHC 32.9 g/dL (28.0-37.0); MCV 89.5 fL (80.0-100.0); MONOCYTES 8.9 %; MPV 7.2 fl. (7.2-11.1); NUCLEATED RBCS 0 /100WBC; PLATELET COUNT* 332 thou/uL (150-400); POLYS 77.6 %; RBC 2.63 mil/uL (4.50-6.00); RDW-CV 16.4 % (10.5-14.5)
[2018-02-15 04:02] LABS: ALBUMIN 2.2 g/dL (3.4-5.0); CALCIUM 8.3 mg/dL (8.5-10.1); CREATININE 0.6 mg/dL (0.6-1.3); POTASSIUM 3.4 mmol/L (3.5-5.1); TOTAL BILIRUBIN 0.5 mg/dL (<0.1-1.0); TOTAL PROTEIN 4.8 g/dL (6.4-8.2)
[2018-02-15 06:10] LABS: BE 2.2 mmol/L (-2 to +3); PCO2 43.5 mmHg (35.0-45.0); PO2 114.2 mmHg (75.0-100.0); pH 7.412 (7.340-7.450)
--- NOTE | 2018-02-15 06:56 | NUR ---
SLOW PROGRESSION TOWARDS GOALS. SEE COMPUTERIZED ASSESSMENT DOCUMENTATION FOR FURTHER DETAILS. PRESIDEX FOR SEDATION. TTT ON PRESIDEX DONE BY RT THIS AM ABG AFTER WEANING TRIAL FINISHED. SEE COMPUTERIZED LAB RESULTS FOR FURTHER DETAILS. NO CHANGE IN VENTILATOR SETTINGS DURING SHIFT. SAFETY MAINTAINED.
--- NOTE | 2018-02-15 18:19 | NUR ---
PATIENT SOMEWHAT PROGRESSING WELL TOWARDS GOALS. REMAINS AWAKE ON PRECEDEX GTT TODAY BUT WHEN LEFT ALONE GOES TO SLEEP. REQUIRED A COUPLE PUSHES OF VERSED TODAY. REMAINS ON VENT, TRIAL TOMORROW WITH POSSIBLE EXTUBATION. DAUGHTER VISITED TODAY AND UPDATED. PATIENT VERY AGITATED WHEN NURSES DON'T UNDERSTAND WHAT HE IS SAYING. DWARF TREE GROWER IN PLACE, RESTRAINTS IN PLACE. WILL CONTINUE TO MONITOR.
--- NOTE | 2018-02-15 20:54 | NUR ---
PT ANXIOUS/AGITATED, SOMEWHAT FOLLOWING SIMPLE COMMANDS, VERSED 2MG IVP GIVEN, PRESEDX 1.4MCG/KG/HR, EMOTIONAL SUPPORT PROVIDED, MOUTHING WORDS SUCH WANTING ETT REMOVED, WANTING DRINK, WANTING FOOD. EDUCATED ETT NEED, NPO STATUS, ORAL CARE PROVIDED, PULLED ETT OUT WITH BILAT WRIST RESTRAINTS ON AND PLACED CORRECTLY. VERBALIZING "WATER, i NEED WATER", RT PAGED TO ROOM STAT, SAO2 98% ON RA, ORAL AIRWAY SUCTIONED. 3L OXYGEN PER NC APPLIED BY RT, SAO2 100% WITH 22 RPM, INSTRUCTED CONTINUED NPO STATUS, REST/RELAXATION, SAFETY. DR VALENCIA PAGED AND UPDATED PTS SELF EXTUBATION AND RESP SATUS. NEW ORDERS OBTAINED OXYGEN NC TITRATION KEEP SAO2 =>90%, REMAIN NPO, SWALLOW STUDY BY ST IN AM, HOSPITALIST TO ADDRESS TPN TO START TOMORROW, ABG Q1HOUR X1, ABG IN AM, CXR IN AM, CONTINUE BILAT WRIST RESTRAINTS AND X4 BEDRAIL USE FOR SAFETY PREVENTION PULLING OUT RODRIGUEZ CATHETER AND CENTRAL LINE, BREATHING TX [id number], DC ALL PO/OG MEDICATIONS, AND ATIVAN 0.5MG IVP [id number] PRN FOR AGITATION. WILL INITATE ORDERS, CONTINUE TO MONITOR, PROVIDE CARE NEEDED, AND KEEP SAFE.
[2018-02-15 21:31] LABS: BE 1.8 mmol/L (-2 to +3); PCO2 41.8 mmHg (35.0-45.0); PO2 114.1 mmHg (75.0-100.0)
[2018-02-16] VITALS (82 sets, daily range): BP systolic 63–199; BP diastolic 38–121
--- NOTE | 2018-02-16 00:13 | NUR ---
HUMALOG SLIDING SCALE REMIME DECREASED FROM HIGH DOSE TO LOW DOSE REGIME. PT NO LONGER RECEIVING TUBE FEEDING R/T OG DC'D.
[2018-02-16 04:34] LABS: ABSOLUTE LYMPHOCYTES 0.4 thou/uL (0.8-5.3); ABSOLUTE MONOCYTES 0.2 thou/uL (0.0-1.2); ABSOLUTE NEUTROPHILS 6.8 thou/uL (1.6-8.1); BASOPHILS 0.4 %; HEMATOCRIT 23.1 % (42.0-52.0); HEMOGLOBIN 7.6 gm/dL (14.0-18.0); LYMPHOCYTES 5.5 %; MCH 29.1 pg (26.0-34.0); MCHC 32.8 g/dL (28.0-37.0); MCV 88.8 fL (80.0-100.0); MONOCYTES 2.9 %; MPV 8.1 fl. (7.2-11.1); NUCLEATED RBCS 0 /100WBC; PLATELET COUNT* 382 thou/uL (150-400); POLYS 91.2 %; RBC 2.61 mil/uL (4.50-6.00); RDW-CV 16.1 % (10.5-14.5); WBC 7.5 thou/uL (4.0-11.0)
[2018-02-16 05:00] LABS: PREALBUMIN 23.7 mg/dL (18.0-35.7)
[2018-02-16 05:01] LABS: ALBUMIN 2.2 g/dL (3.4-5.0); CALCIUM 7.9 mg/dL (8.5-10.1); CREATININE 0.6 mg/dL (0.6-1.3); POTASSIUM 4.2 mmol/L (3.5-5.1); TOTAL BILIRUBIN 0.5 mg/dL (<0.1-1.0); TOTAL PROTEIN 4.8 g/dL (6.4-8.2)
--- NOTE | 2018-02-16 06:50 | NUR ---
PT AWAKE, ALERT TO PERSON, CONVERSATIVE ALL NOC. HOLLERING OUT "HELLO" "CALL THE POLICE," WATER" "FOOD" "I WANT TO GO TO MY HOUSE WITH MY MOM UP THE STREET, WE HAVE A MILLION DOLLAR HOUSE, SHES GOING TO BEAT YOU UP" AND "HELP" FREQUENT ATTEMPS TO REORIENT PLACE, TIME. REMAINS ON PRESEDX GTT 1.4MCG/KG/HR, FREQUENT ORAL CARE PROVIDED, PT BITING ON ORAL SWABS WITH ORAL CARE, DIFFICULT TO REMOVE SWABS FROM MOUTH. MOVING LEGS OOB AND IN BEDRAILS. ANXIOUS/AGITATED, DIFFICULT TO REDIRECT. EMOTIONAL SUPPORT PROIVED.
--- NOTE | 2018-02-16 11:35 | NUR ---
PATIENT REQUIRES MULTIPLE ENT SUCTIONING THROUGHOUT THIS SHIFT SO FAR. DR VALENCIA CONTACTED AND A ONETIME 20MG IV LASIX DOSE GIVEN ALONG WITH A SCOPLAMINE PATCH APPLIED. PATIENT CONTINUES TO GURGLE AND HAS A WEAK COUGH. ENCOURAGED TO COUGH HIS SPUTUM UP. HE ACKNOWLEGES BUT IS UNABLE TO CLEAR SECRETIONS. O2 SATS REMAIN IN UPPER 90S ON 3 LITERS NASAL CANULA. WILL CONTINUE TO SUCTION PRN.
[2018-02-16 13:46] LABS: BE 1.2 mmol/L (-2 to +3); PCO2 35.4 mmHg (35.0-45.0); PO2 114.9 mmHg (75.0-100.0); pH 7.462 (7.340-7.450)
--- NOTE | 2018-02-16 17:16 | NUR ---
PATIENT REINTUBATED THIS SHIFT. UNABLE TO PROTECT AIRWAY SHIFT PROGRESSED, GURGLING ON HIS OWN SALIVA. FAMILY HERE BEFORE INTUBATION. AWARE OF PATIENT STATUS. PATIENT ON VENTILATOR AT THIS TIME WITH PRECEDEX AND PROPOFOL GTT PER DR VALENCIA. STARTED LEVOPHED AT SMALL DOSE FOR PRESSURES. ABG TO BE DRAWN BY RT. RESTRAINTS REAPPLIED AND ORDER OBTAINED. 3 BOWEL MOVEMENTS THIS SHIFT. DRESSING CHANGED ON BOTTOM MULTIPLE TIMES. BATH DONE. SUPERVISOR SPECIALTY PLANT IN PLACE, PATIENT TRACING SINUS KIMBERLY. BED IN LOWEST POSITION,
[2018-02-16 17:44] LABS: BE -0.6 mmol/L (-2 to +3); PCO2 34.6 mmHg (35.0-45.0); pH 7.445 (7.340-7.450)
[2018-02-16 17:46] LABS: PO2 130.7 mmHg (75.0-100.0)
[2018-02-17] VITALS (52 sets, daily range): BP systolic 81–120; BP diastolic 42–65
[2018-02-17 04:16] LABS: ABSOLUTE LYMPHOCYTES 0.4 thou/uL (0.8-5.3); ABSOLUTE MONOCYTES 0.3 thou/uL (0.0-1.2); ABSOLUTE NEUTROPHILS 4.1 thou/uL (1.6-8.1); BASOPHILS 0.3 %; HEMOGLOBIN 7.6 gm/dL (14.0-18.0); LYMPHOCYTES 7.7 %; MCH 29.3 pg (26.0-34.0); MCHC 32.9 g/dL (28.0-37.0); MCV 89.1 fL (80.0-100.0); MONOCYTES 6.9 %; NUCLEATED RBCS 0 /100WBC; PLATELET COUNT* 328 thou/uL (150-400); POLYS 85.1 %; RBC 2.58 mil/uL (4.50-6.00); RDW-CV 16.4 % (10.5-14.5); WBC 4.9 thou/uL (4.0-11.0)
[2018-02-17 04:35] LABS: PREALBUMIN 21.7 mg/dL (18.0-35.7)
[2018-02-17 04:36] LABS: CALCIUM 7.9 mg/dL (8.5-10.1); CREATININE 0.5 mg/dL (0.6-1.3); POTASSIUM 3.6 mmol/L (3.5-5.1)
[2018-02-17 05:46] LABS: PCO2 37.1 mmHg (35.0-45.0); PO2 99.5 mmHg (75.0-100.0); pH 7.446 (7.340-7.450)
--- NOTE | 2018-02-17 06:18 | NUR ---
MINIMAL PROGRESSION TOWARDS GOALS. REMAINS VENTILATED, NO CHANGE IN VENTILATOR SETTINGS DURING NOC, PROPOFOL AND PRESEDX GTT'S VIA INFUSION PUMP, TITRATED PER PROTOCOL FOR COMFORT/RASS -1. SAO2 =>99% ALL SHIFT, STARTED TPN AT HS PER ORDER, INCREASED LISPRO FROM LOW DOSE TO HIGH DOSE SLIDING SCALE REGIME DURING SHIFT. FSBS 291 THIS AM, MINIMAL CLEAR SECRETIONS SUCTIONED FROM INLINE ETT, SB WITH OCCASIONAL PVC'S TRACING RESIDENTIAL AIDE, AFEBRILE, BED REMAINS IN LOW AND LOCKED POSITION.
--- NOTE | 2018-02-17 17:28 | NUR ---
PATIENT SOMEWHAT PROGRESSING TOWARDS GOALS. ABLE TO REMAIN COMFORTABLE AND TOLERATING VENTILATOR. REMAINED ON PREVIOUS SETTINGS FROM INTUBATION YESTERDAY. WILL TRY A WEANING TRIAL TOMORROW MORNING IN THE EARLY AM. WEAN PROPOFOL BUT OK TO REMAIN ON PRECEDEX. SCHEDULED GEOD[place] TO START PER DR SIMS. TPN TO CONTINUE. RESTRAINTS REMAIN IN PLACE, SENIOR MANAGER IN PLACE. PATIENTS BROTHER VISITED EARLY THIS MORNING AND UPDATED ON PHONE BUT NO OTHER VISITORS THIS SHIFT. BED IN LOWEST POSITION
[2018-02-18] VITALS (21 sets, daily range): BP systolic 85–116; BP diastolic 36–60
[2018-02-18 04:48] LABS: HEMATOCRIT 24.4 % (42.0-52.0); HEMOGLOBIN 8.1 gm/dL (14.0-18.0); MCH 29.8 pg (26.0-34.0); MCHC 33.1 g/dL (28.0-37.0); MCV 90.1 fL (80.0-100.0); MPV 8.4 fl. (7.2-11.1); NUCLEATED RBCS 0 /100WBC; PLATELET COUNT* 307 thou/uL (150-400); RBC 2.71 mil/uL (4.50-6.00); RDW-CV 16.8 % (10.5-14.5); WBC 7.4 thou/uL (4.0-11.0)
[2018-02-18 05:08] LABS: CALCIUM 7.8 mg/dL (8.5-10.1); CREATININE 0.6 mg/dL (0.6-1.3); TOTAL BILIRUBIN 0.3 mg/dL (<0.1-1.0); TOTAL PROTEIN 4.5 g/dL (6.4-8.2)
[2018-02-18 06:03] LABS: BE -1.8 mmol/L (-2 to +3); PCO2 37.7 mmHg (35.0-45.0); PO2 111.4 mmHg (75.0-100.0); pH 7.399 (7.340-7.450)
[2018-02-18 07:47] LABS: ABSOLUTE LYMPHOCYTES 0.4 thou/uL (0.8-5.3); ABSOLUTE MONOCYTES 0.1 thou/uL (0.0-1.2); PLATELET ESTIMATE ADEQUATE
[2018-02-18 07:50] LABS: ANISOCYTOSIS 2+; HYPOCHROMASIA 2+
[2018-02-18 07:51] LABS: MICROCYTES 1+; POLYCHROMASIA 2+
--- NOTE | 2018-02-18 17:23 | NUR ---
PATIENT SOMEWHAT PROGRESSING WELL TOWARDS GOALS. TOLERATING VENTILATOR SUPPORT AND SEDATION. SEDATION VACATION DONE TODAY WHILE DAUGHTER AND WERE IN THE ROOM, PATIENT WAKES UP AND FOLLOWS ALL COMMANDS, BUT RESTLESS AND IS EASILY FRUSTRATED. SEDATION RESUMED AFTER DAUGHTER WAS ABLE TO SPEAK WITH PATIENT. DR ECKERT AND LEVI SPOKE WITH AND DAUGHTER EXTENSIVELY ABOUT PROGNOSIS AND CONTINUATION OF CARE. FAMILY WOULD LIKE TO PROCEED WITH TRACHESTOMY AND PEG TUBE IN HOPES IT WILL BE SHORT TERM. EDUCATED ON THESE PROCESSES AND ALL QUESTIONS ANSWERED. FAMILY STAYED FOR ABOUT AN HOUR AND LEFT. PULMONARY DOCTOR AND CAROL WOULD LIKE A MRI DONE TOMORROW MORNING. ORDER PLACED IN THE CHART AND WILL PASS ALONG IN REPORT FOR TOMORROW. DR SIMS WOULD LIKE TO INITIATE SURGERY CONSULT TOMORROW FOR TRACHEOSTOMY WHICH HE WILL PUT IN ORDERS ALSO FOR TOMORROW. NO APPARENT PAIN. VITALS REMAIN WNL. BED IN LOWEST POSITION, STOCK FEEDER IN PLACE.
[2018-02-19] VITALS (33 sets, daily range): BP systolic 88–112; BP diastolic 36–55
[2018-02-19 04:49] LABS: ALBUMIN 1.9 g/dL (3.4-5.0); CALCIUM 7.9 mg/dL (8.5-10.1); CREATININE 0.5 mg/dL (0.6-1.3); POTASSIUM 4.4 mmol/L (3.5-5.1); TOTAL BILIRUBIN 0.2 mg/dL (<0.1-1.0); TOTAL PROTEIN 4.2 g/dL (6.4-8.2)
[2018-02-19 05:08] LABS: ABSOLUTE LYMPHOCYTES 0.2 thou/uL (0.8-5.3); ABSOLUTE MONOCYTES 0.4 thou/uL (0.0-1.2); ABSOLUTE NEUTROPHILS 8.1 thou/uL (1.6-8.1); BASOPHILS 0.1 %; EOSINOPHILS 0.1 %; HEMATOCRIT 23.8 % (42.0-52.0); HEMOGLOBIN 7.8 gm/dL (14.0-18.0); LYMPHOCYTES 2.6 %; MCH 29.2 pg (26.0-34.0); MCHC 32.7 g/dL (28.0-37.0); MCV 89.4 fL (80.0-100.0); MONOCYTES 4.4 %; MPV 8.5 fl. (7.2-11.1); NUCLEATED RBCS 0 /100WBC; PLATELET COUNT* 279 thou/uL (150-400); POLYS 92.8 %; RBC 2.66 mil/uL (4.50-6.00); RDW-CV 16.9 % (10.5-14.5); WBC 8.7 thou/uL (4.0-11.0)
--- NOTE | 2018-02-19 06:07 | NUR ---
MINIMAL PROGRESSION TOWARDS GOALS, REMAINS ON VENTILATOR, NO SETTING CHANGES DURING NOC. PROPOFOL AND PRESDX GTT'S FOR SEDATION MAINTAIN RASS -1. TTT BY RT AT 0500. PROPOFOL GTT STOPPED AND PRESEDX GTT DECREASED FROM 1.4MCG/KG/MIN TO 0.4MCG/KG/MIN DURING ET WEANING TRIAL. FOLLOWING SIMPLE COMMANDS INTERMITTENLY SUCH GRIPPING RN'S HAND ON COMMANDD AND NODDING HEAD YES AND NO TO SIMPLE QUESTIONS. NODDING HEAD NO WITH PAIN QUESTIONS. FULL BED BATH GIVEN. DRESSING CHANGED TO SACROCOCCYGEAL REGION, NYSTATIN CREAM AND ANTIFUNGAL CREAM ALSO APPLIED. SB/SR TRACING DAIRY HUSBANDRY WORKER, SA02 =>98% ON 30%FIO2. 1250CC VIVIANA URINE OUTPUT VIA RODRIGUEZ CATHETER, RODRIGUEZ CATHETER REMAINS PATENT TO DD. TPN CONTINUES VIA INFUSION PUMP FOR NUTRITION AT 75CC/HR PER ORDER. MRI TO BE DONE THIS AM. BED REMAINS IN LOW AND LOCKED POSITON,
--- NOTE | 2018-02-19 19:42 | NUR ---
PT WENT FOR MRI. VSS. TMAX 99.1. FAN TURNED ON AND PT TEMP CAME DOWN TO 97.7. PT TO HAVE PEG TUBE PLACEMENT TOMORROW. DID NOT RECEIVE RETURN PHONE CALL FROM SURGERY ABOUT PEG TUBE PLACEMENT.
[2018-02-20] VITALS (21 sets, daily range): BP systolic 81–135; BP diastolic 37–59
[2018-02-20 04:03] LABS: ABSOLUTE LYMPHOCYTES 0.4 thou/uL (0.8-5.3); ABSOLUTE MONOCYTES 0.4 thou/uL (0.0-1.2); ABSOLUTE NEUTROPHILS 6.3 thou/uL (1.6-8.1); BASOPHILS 0.6 %; HEMOGLOBIN 7.8 gm/dL (14.0-18.0); MCH 29.2 pg (26.0-34.0); MCHC 32.7 g/dL (28.0-37.0); MCV 89.4 fL (80.0-100.0); MONOCYTES 5.6 %; MPV 7.9 fl. (7.2-11.1); NUCLEATED RBCS 0 /100WBC; PLATELET COUNT* 218 thou/uL (150-400); POLYS 88.8 %; RBC 2.68 mil/uL (4.50-6.00); RDW-CV 17.3 % (10.5-14.5); WBC 7.1 thou/uL (4.0-11.0)
[2018-02-20 04:12] LABS: CALCIUM 7.7 mg/dL (8.5-10.1); CREATININE 0.5 mg/dL (0.6-1.3); POTASSIUM 4.4 mmol/L (3.5-5.1)
--- NOTE | 2018-02-20 05:02 | NUR ---
PT. REMAINS SEDATED ON VENTILATOR, STARTING TTT AT THIS TIME. PROPOFOL OFF, PRECEDEX REMAINS ON. COMPLETE BED BATH GIVEN. REMAINS SINUS KIMBERLY WITH PAC'S AND PVC'S. BILAT SOFT WRIST RESTRAINTS REMAIN IN PLACE. WILL CONTINUE TO MONITOR.
--- NOTE | 2018-02-20 07:32 | NUR ---
PT WAS EVALUATED BY OCCUPATIONAL THERAPY ON 02/12/18. PT HAS NOT BEEN APPROPRIATE FOR SERVICES AND WAS PLACED ON HOLD SINCE THAT TIME. SPOKE WITH RN, WHO STATES THAT PATIENT CONTINUES TO BE INTUBATED. PLAN TO D/C FROM OT SERVICES AT THIS TIME. WILL AWAIT NEW ORDER WHEN MEDICALLY STABLE.
--- NOTE | 2018-02-20 09:40 | EEG ---
[address] [address] EEG STUDY REPORT Name: LUANA INIGUEZ Room: [address] IN M.R.#: [id number] Admission: 02/03/18 Attend Phys: Silvano Conn MD Discharge: Date of : 48 Report #: [id number] THIS REPORT FOR: //name// CC: Reinaldo Conn DATE OF SERVICE: 02/04/2018 This patient is being evaluated for altered mental status. EEG was done to further evaluate that. EEG was done by placing the electrode by standard 10-20 system of electrode placement. Both referential and sequential montages were used for recording. Background activity in this patient's EEG is about 6 Hz and 30 microvolt. Photic stimulation is unremarkable. No active epileptiform activity was noticed. The patient is not responsive, so is not possible to tell when he is awake and when he is asleep. IMPRESSION: This is an abnormal EEG because it is disorganized and poorly formed. That is a nonspecific abnormality, which can occur with encephalopathy, effect of psychotropic medication, dementia, etc. Clinical correlation is recommended. <ELECTRONICALLY SIGNED> By: Ronnie Wiggins MD 02/20/18 0940 [id number] Wiggins MD /nt
--- NOTE | 2018-02-20 16:13 | NUR ---
SPOKE TO YEN INIGUEZ THIS AM PRIOR TO EGD AND PEG TUBE. SHE GAVE CONSENT/ IN AGREEANCE WITH PEG TUBE PLACEMENT. PEG TUBE IN PLACE. UNABLE TO GIVE MEDICATIONS VIA PEG TUBE TODAY. DRESSING ON ABDOMEN CLEAN, DRY AND INTACT. CALLED AND ASKED ABOUT ADMININSTRATION OF MIDODRINE, SCHEDULED LORAZEPAM, AND ALBUTEROL SULFATE THESE WERE ORDERED VIA TUBE. RECEIVED ORDER TO HOLD MEDICATIONS UNTIL CAN ADMINISTER VIA PEG TUBE.
--- NOTE | 2018-02-20 16:17 | NUR ---
LATE ENTRY FOR 02/19/17 SPOKE TO YEN AND DTR IMELDA ABOUT PEG TUBE AND TRACH PLACEMENT. BOTH AND DTR IN AGREEANCE TO HAVE PEG TUBE AND TRACH. DTR STATED "I HOPE THAT WITH THERAPY HE CAN GET BETTER AND NOT HAVE THESE TUBES".
--- NOTE | 2018-02-20 16:30 | NUR ---
SPOKE WITH AT BEDSIDE. PT HAD PEG TUBE PLACED TODAY, WORKING OUT THE DETAILS TO HAVE DR. HEATON/DR. MUNIZ PLACE THE TRACH. DISCUSSED LTAC OPTIONS WITH , SHE UNDERSTANDS HE WILL NEED TO GO TO AN LTAC WHEN READY FOR DISCHARGE FROM THE HOSPITAL, NOT TO A SNF. REVIEWED LTAC OPTIONS WITH , SHE SAID SHE WOULD PREFER [facility] IN [place], THAT IS CLOSE TO ONE OF HER OWN DOCTORS AND SHE KNOWS HOW TO GET THERE. WILL CONTACT [facility] IN THE MORNING AND SEE IF THEY CONTRACT WITH PT'S INSURANCE. SAID SHE HAD NO QUESTIONS ABOUT PLAN OF CARE.
--- NOTE | 2018-02-20 16:53 | NUR ---
YEN GIVEN PAMPLET ON PEG TUBE FROM DR CHIN.
[2018-02-21] VITALS (37 sets, daily range): BP systolic 80–114; BP diastolic 35–61
--- NOTE | 2018-02-21 06:37 | NUR ---
VITALS UNCHANGED THROUGHOUT THIS SHIFT. HEART RHYTHM SINUS BRADYCARDIA BETWEEN 50-60BPM, MAP OF >65 MAINTAINED. PATIENT ABLE TO SPONTANEOUSLY OPEN EYES ON LAST ASSESSMENT. ANSWERS TO YES/NO QUESTIONS BY NODDING/SHAKING HEAD. WEANING TRIAL STARTED AT 0450 AND STOPPED AT 0540 PER RESPIRATORY. PATIENT WAS ALERT AND RESTLESS AT THIS TIME. PATIENT BACK ON PROPOFOL AT 50 MCG/KG/MIN SINCE 0540. PATIENT DROWSY AND RESTING IN BED.
--- NOTE | 2018-02-21 10:51 | NUR ---
WOUND CARE NOTE: REASSESSMENT OF RIGHT BUTTOCK, SACROCOCCYGEAL, AND RIGHT POSTERIOR UPPER THIGH. RAISED BLANCHABLE REDNESS TO RIGHT POSTERIOR UPPER THIGH AND RIGHT BUTTOCK ARE RESOLVING, REDNESS IS LESSENED. REMAINS DISTINCT IN LOCATION, IS RAISED AND FIRMER COMPARED TO SURROUNDING TISSUE. BELIEVE TO BE HEALING. SACROCOCCYGEAL REGION: EVOLVING DEEP TISSUE INJURY. WOUND HAS EVOLVED AND IS NOW UNSTAGEABLE MEASURING 3X3X0.2. MOIST, YELLOW, ADHERENT SLOUGH TISSUE TO 80% OF WOUND BED 20% OF WOUND BED PINK, MOIST, FRIABLE TISSUE. LYDIA-WOUND WITH NEW EPITHELIUM AND CONTINUED REDNESS DESCRIBED ABOVE. CLEANSED WOUND WITH WOUND CLEANSER, PATTED DRY. APPLIED SKIN PREP TO LYDIA-WOUND. APPLIED AQUACEL AG AND SECURED WITH EXUDERM. THEN TEGADERM. RECOMMEND CONTINUE SHERINE MATTRESS DISCONTINUE ANTIFUNGAL POWDER/OINTMENTS START AQUACEL AG UNDER EXUDERM. CHANGE Q5 DAYS AND PRN CONTINUE TURN Q2 HOURS (SIDE-SIDE PREFERRED) HOB <30 DEGREES IF PATIENT CAN TOLERATE ELEVATE HEELS OFF BED WITH PILLOWS (NO BREAKDOWN NOTED) ONCE ABLE, NUTRITION SUPPORT LIMIT LAYERS OF LINEN UNDER PATIENT
--- NOTE | 2018-02-21 11:00 | NUR ---
SPOKE WITH IMELDA AT [facility], THEY ARE IN-NETWORK WITH PT'S INSURANCE. REFERRAL INFO FAXED TO HER FOR POSSIBLE LTAC TRANSFER NEXT WEEK. TRACH PLACEMENT LATER TODAY.
--- NOTE | 2018-02-21 16:50 | NUR ---
PT TO SURGERY AT THIS TIME FOR TRACH PLACEMENT.
--- NOTE | 2018-02-21 18:10 | NUR ---
PATIENT BACK FROM SURGERY.
--- NOTE | 2018-02-21 18:59 | NUR ---
PT ASSESSMENT CHARTED. VSS. SEDATED LIGHTLY THROUGHOUT THE DAY. TRACH PLACED THIS EVENING. SEDATION TURNED UP TO FACILITATE REST. PT HAS BEEN COUGHING AND OPENING EYES SINCE BACK FROM SURGERY. RED DRAINAGE FROM FRESH TRACH. ORDERS TO NOT REMOVE STITCHES PER SURGERY. BLOOD PRESSURE STABLE AT THIS TIME. Q2H TURNS TO MAINTAIN SKIN INTEGRITY. DRESSING CHANGED WITH WOUND NURSE TODAY, SEE NEW ORDERS.
[2018-02-22] VITALS (42 sets, daily range): BP systolic 79–139; BP diastolic 39–74
[2018-02-22 05:54] LABS: HEMATOCRIT 25.8 % (42.0-52.0); HEMOGLOBIN 8.6 gm/dL (14.0-18.0); MCH 29.7 pg (26.0-34.0); MCHC 33.3 g/dL (28.0-37.0); MPV 8.6 fl. (7.2-11.1); RBC 2.9 mil/uL (4.50-6.00); RDW-CV 16.9 % (10.5-14.5); WBC 9.2 thou/uL (4.0-11.0)
[2018-02-22 05:59] LABS: CALCIUM 7.6 mg/dL (8.5-10.1); CREATININE 0.4 mg/dL (0.6-1.3); POTASSIUM 3.4 mmol/L (3.5-5.1)
--- NOTE | 2018-02-22 07:35 | NUR ---
Pt lightly sedated for first half of shift, titrated Propofol gtt down from 80 mcg/kg/min to 30. Pt alert during sedation vacation, and became restless. Pt nods and shakes head to indicate yes/no; however, sometimes he is nodding when nothing has been asked of him. Currently on Precedex at 1.4 mcg/kg/hr and Propofol at 30 mcg/kg/min. VSS now, but BP soft during early part of shift with MAPs in low 50s for approx 2 hours. Pt tolerated weaning trial well early this am per RT. Will continue to monitor.
--- NOTE | 2018-02-22 11:00 | NUR ---
PROPOFOL TITRATED OFF PER PULMONARY ORDERS. PT ON PRECEDEX. PT AWAKE AND ALERT. PT MOVING MOUTH TO ATTEMPT TO SPEAK. PROCARE BOOTS APPLIED BILATERALLY. RECEIVED ORDER OKAY TO USE PEG TUBE. TUBE FEEDINGS RE-STARTED PER DR WILKS ORDERS. FREE WATER BOULS RE-STARTED PER ORDERS.
--- NOTE | 2018-02-22 18:03 | NUR ---
INNER CANULA REPLACED PER SURGERY ORDERS. PER DR HEATON STITCHES WILL BE REMOVED ON 02/28/17. ORAL CARE GIVEN. SOFT TOUCH CALL LIGHT WITHIN PT'S REACH. PT EDUCATED ON USE. PT HAS NOT YET USED SOFT TOUCH CALL LIGHT. PT CALM AND COOPERATIVE.
[2018-02-23] VITALS (12 sets, daily range): BP systolic 122–147; BP diastolic 62–77
[2018-02-23 05:46] LABS: HEMATOCRIT 25.8 % (42.0-52.0); HEMOGLOBIN 8.5 gm/dL (14.0-18.0); MCH 29.5 pg (26.0-34.0); MCV 89.5 fL (80.0-100.0); MPV 8.6 fl. (7.2-11.1); NUCLEATED RBCS 0 /100WBC; PLATELET COUNT* 220 thou/uL (150-400); RBC 2.89 mil/uL (4.50-6.00); RDW-CV 16.8 % (10.5-14.5); WBC 13.6 thou/uL (4.0-11.0)
[2018-02-23 06:37] LABS: ALBUMIN 2.4 g/dL (3.4-5.0); CALCIUM 7.9 mg/dL (8.5-10.1); CREATININE 0.4 mg/dL (0.6-1.3); POTASSIUM 3.5 mmol/L (3.5-5.1); TOTAL BILIRUBIN 0.9 mg/dL (<0.1-1.0); TOTAL PROTEIN 4.8 g/dL (6.4-8.2)
[2018-02-23 07:35] LABS: ABSOLUTE EOSINOPHILS 0.1 thou/uL (0.0-0.7); ABSOLUTE LYMPHOCYTES 1.2 thou/uL (0.8-5.3); ABSOLUTE MONOCYTES 0.7 thou/uL (0.0-1.2); ABSOLUTE NEUTROPHILS 11.6 thou/uL (1.6-8.1); PLATELET ESTIMATE ADEQUATE
[2018-02-24] VITALS (24 sets, daily range): BP systolic 83–154; BP diastolic 34–77
[2018-02-24 05:13] LABS: ALBUMIN 1.7 g/dL (3.4-5.0); CALCIUM 7.4 mg/dL (8.5-10.1); CREATININE 0.4 mg/dL (0.6-1.3); POTASSIUM 3.1 mmol/L (3.5-5.1); TOTAL BILIRUBIN 0.4 mg/dL (<0.1-1.0); TOTAL PROTEIN 4.4 g/dL (6.4-8.2)
[2018-02-24 06:04] LABS: ABSOLUTE LYMPHOCYTES 1.1 thou/uL (0.8-5.3); ABSOLUTE MONOCYTES 0.5 thou/uL (0.0-1.2); ABSOLUTE NEUTROPHILS 4.1 thou/uL (1.6-8.1); BASOPHILS 0.5 %; EOSINOPHILS 0.7 %; HEMATOCRIT 20.1 % (42.0-52.0); LYMPHOCYTES 18.6 %; MCH 29.2 pg (26.0-34.0); MCHC 32.8 g/dL (28.0-37.0); MCV 89.2 fL (80.0-100.0); MONOCYTES 8.8 %; MPV 8.6 fl. (7.2-11.1); NUCLEATED RBCS 0 /100WBC; POLYS 71.4 %; RBC 2.25 mil/uL (4.50-6.00); RDW-CV 16.9 % (10.5-14.5); WBC 5.7 thou/uL (4.0-11.0)
[2018-02-24 06:15] LABS: PLATELET COUNT* 113 thou/uL (150-400)
[2018-02-24 06:18] LABS: HEMOGLOBIN 6.6 gm/dL (14.0-18.0)
--- NOTE | 2018-02-24 08:16 | NUR ---
VSS. PT IS ALERT MUCH OF THE TIME. PROPOFOL RESTARTED TONIGHT IN ATTEMPT TO PROMOTE SLEEP PRIOR TO TRIAL, SLEPT FOR THREE HOURS. PROPOFOL DC'D AND PT NOW ON PRECEDEX ONLY SINCE 429. TRIAL AT 0515, TOLERATED WELL. TOLERATING TUBE FEED AT GOAL RATE OF 50ML/HR WITH RESIDUALS OF 0 ML. TRACH DRESSING CHANGED, SITE HEALING WELL WITH MINIMAL OOZING OF BLOOD. FEBRILE AT START OF SHIFT, 101.7 ORALLY. BLANKETS REMOVED AND FAN TURNED ON, AFEBRILE SINCE. SOFT-TOUCH CALL LIGHT WITHIN REACH.
--- NOTE | 2018-02-24 09:55 | NUR ---
ASSUMED CARE FROM ANA FRYE AT 0930. PATIENT AWAKE, CALM. LAB DRAWING BLOOD CULTURES AT THIS TIME.
[2018-02-24 10:42] LABS: URINE BILIRUBIN NEGATIVE (Negative); URINE BLOOD NEGATIVE (Negative); URINE CLARITY CLEAR; URINE COLOR YELLOW; URINE GLUCOSE-RANDOM 2+ (Negative); URINE KETONES NEGATIVE (Negative); URINE LEUKOCYTES-REFLEX 1+ (Negative); URINE NITRITE-REFLEX NEGATIVE (Negative); URINE PROTEIN 1+ (Negative); URINE UROBILINOGEN 0.2 E.U./dl (0.2-1.0)
[2018-02-24 10:44] LABS: BACTERIA-REFLEX 1-9 Few /HPF (None Seen); CASTS None Seen /LPF (None Seen); CRYSTALS None Seen /LPF (None Seen); MUCUS None Seen strn/LPF (None Seen); SQUAMOUS 0-3 Few /LPF (0-3); URINE RBC 3-10 Few /HPF (0-2)
[2018-02-24 10:45] LABS: YEAST-REFLEX Present (None Seen)
--- NOTE | 2018-02-24 14:29 | NUR ---
SPOKE WITH IMELDA AT [facility] ([phone]), FAXED UPDATED REFERRAL INFO ([phone])SO THEY CAN START ON AUTH FROM [facility] FOR LTAC.
--- NOTE | 2018-02-24 15:00 | NUR ---
SPOKE WITH YEN BY PHONE. LET HER KNOW THAT IMELDA FROM [facility] WOULD BE CONTACTING HER TO MEET TO DISCUSS LTAC. YEN SAID SHE WAS DEPRESSED THAT PT WASN'T DOING BETTER, 'I THOUGHT ONCE HE GOT THE TRACH THAT HE WOULD BE ABLE TO COME OFF THE BREATHING MACHINE.' REMINDED HER THAT NO ONE SAID HE WOULD IMMEDIATELY BE ABLE TO COME OFF THE VENTILATOR, THIS WOULD ALL TAKE TIME. SHE SAID SHE REMEMBERED PEOPLE TELLING HER THAT. WILL KEEP UPDATED ON PROCESS FOR LTAC AUTHORIZATION.
[2018-02-24 16:31] LABS: HEMATOCRIT 23.5 % (42.0-52.0); HEMOGLOBIN 7.8 gm/dL (14.0-18.0)
--- NOTE | 2018-02-24 17:34 | NUR ---
PATIENT PROGRESSING TOWARDS GOALS. BID TRIALS ADEQUATE. TRACH INNER CANNULA CHANGED PER ORDERS. DRAIN SPONGE CHANGED X1 WITH SCANT BLOODY DRAINAGE. PATIENT TURNED Q2H. TOLERATING TUBE FEEDINGS WITH NO RESIDUAL. POTASSIUM REPLACING PER PROTOCOL. RECHECK THIS PM. 1 UNIT PRBCS GIVEN TODAY. H&H BETTER. UPDATED YEN () X2 THIS SHIFT.
[2018-02-25] VITALS (12 sets, daily range): BP systolic 112–133; BP diastolic 61–76
[2018-02-25 05:38] LABS: HEMATOCRIT 23.9 % (42.0-52.0); HEMOGLOBIN 7.9 gm/dL (14.0-18.0); MCH 29.5 pg (26.0-34.0); MCHC 33.2 g/dL (28.0-37.0); MCV 88.9 fL (80.0-100.0); MPV 9.2 fl. (7.2-11.1); RBC 2.69 mil/uL (4.50-6.00); RDW-CV 16.5 % (10.5-14.5); WBC 6.6 thou/uL (4.0-11.0)
[2018-02-25 05:41] LABS: CALCIUM 7.3 mg/dL (8.5-10.1); CREATININE 0.3 mg/dL (0.6-1.3); POTASSIUM 3.9 mmol/L (3.5-5.1)
--- NOTE | 2018-02-25 07:29 | NUR ---
VSS. PT NO LONGER IMPULSIVE OR TRYING TO PULL AT LINES. THIS RN OBSERVED PT MULTIPLE TIMES WITH LOOSENED RESTRAINTS TO TEST PT FOR ATTEMPTS TO REMOVE MEDICAL EQUIPMENT. PT NO LONGER EXHIBITING THIS BEHAVIOR. PT IS CALM, RESTING WATCHING TELEVISION. RESTRAINTS WERE REMOVED AT 0430 AT BEGINNING OF BED BATH, RN AND/OR RT REMAINED IN ROOM UNTIL 0600. PT MADE NO ATTEMPT TO DISCONNECT EQUIPEMENT THOUGH HE DID PALPATE TUBING INTERMITTENTLY THEN LAY HIS ARM BACK ON THE BED WITHOUT BEING INSTRUCTED TO DO SO. SOFT TOUCH CALL LIGHT WITHIN REACH.
--- NOTE | 2018-02-25 16:30 | NUR ---
PER IMELDA AT [facility] SAID PT HAS TO HAVE A TRACH FOR 7 DAYS BEFORE THEY WILL CONSIDER FOR LTAC, CAN RESUBMIT REQUEST FOR LTAC ON SATURDAY. DR. ALONSO NOTIFIED.
--- NOTE | 2018-02-25 17:05 | NUR ---
PATIENT PROGRESSING TOWARDS GOALS. CALM, COOPERATIVE. REMAINS OUT OF RESTRAINTS. UPDATED FAMILY ON PLAN OF CARE. STARTED OT TODAY. WILL START PT TOMORROW. PATIENT AWAITING AUTH FOR LTAC EVALUATION.
[2018-02-26] VITALS (18 sets, daily range): BP systolic 128–169; BP diastolic 68–88
--- NOTE | 2018-02-26 03:27 | NUR ---
PRECEDEX TITRATED OFF AT THIS TIME, PT REMAINS CALM WHEN AWAKE.
--- NOTE | 2018-02-26 06:34 | NUR ---
VSS. PT REMAINS CALM OFF ALL SEDATION WITH NO ATTEMPTS TO DISCONNECT MEDICAL EQUIPMENT. PT NODS/SHAKES HEAD TO YES/NO QUESTIONS AND FOLLOWS COMMANDS. TRACH CARE PROVIDED, COPIOUS CLEAR MUCOUS DRAINAGE AT SITE. SITE RED BUT APPEARS TO BE HEALING WELL. PEG DRESSING CHANGED, SITE COLOR APPROPRIATE FOR RACE. COMPLETE BED BATH GIVEN, HAIR SHAMPOOED. COCCYX DRESSING CHANGED PER WOUND RN INSTRUCTIONS. PT HAS DENIED PAIN THROUGHOUT THE NIGHT. SOFT TOUCH CALL LIGHT WITHIN REACH.
[2018-02-26 08:38] LABS: ABSOLUTE EOSINOPHILS 0.1 thou/uL (0.0-0.7); ABSOLUTE MONOCYTES 0.5 thou/uL (0.0-1.2); ABSOLUTE NEUTROPHILS 4.5 thou/uL (1.6-8.1); BASOPHILS 0.6 %; EOSINOPHILS 1.2 %; HEMOGLOBIN 9.4 gm/dL (14.0-18.0); LYMPHOCYTES 16.1 %; MCH 29.9 pg (26.0-34.0); MCHC 33.4 g/dL (28.0-37.0); MCV 89.6 fL (80.0-100.0); MONOCYTES 8.7 %; MPV 8.5 fl. (7.2-11.1); NUCLEATED RBCS 0 /100WBC; PLATELET COUNT* 171 thou/uL (150-400); POLYS 73.4 %; RBC 3.13 mil/uL (4.50-6.00); RDW-CV 16.4 % (10.5-14.5); WBC 6.2 thou/uL (4.0-11.0)
[2018-02-26 08:46] LABS: CALCIUM 7.8 mg/dL (8.5-10.1); CREATININE 0.5 mg/dL (0.6-1.3); POTASSIUM 3.8 mmol/L (3.5-5.1)
[2018-02-26 11:15] LABS: BE 5.7 mmol/L (-2 to +3); PCO2 38.5 mmHg (35.0-45.0); PO2 130.4 mmHg (75.0-100.0); pH 7.499 (7.340-7.450)
[2018-02-27] VITALS (17 sets, daily range): BP systolic 123–162; BP diastolic 68–88
--- NOTE | 2018-02-27 06:30 | NUR ---
REPORT RECEIVED FROM OFF GOING SHIFT ANDCARE ASSUMMED. PT AWAKE AND ALERT AND SMILING THIS PM. MOITORS INTACT WITH ALARMS SET. TUBE FEEDING INTACT AND CONNECTED TO PEG TUBE JEVITY 1.5 INFUSING AT 50 CC/HR VIA PUMP ORDERED. RODRIGUEZ INTACT AND PATENT DRIANING VIVIANA URINE TO BEDSIDE BAG. TRACH TUBE #8 SHILEY INTACT AND CONNECT TO VENTILATOR ORDERED WIITH SETTINGS TV 550, PEEP 7, AC 14 AND FIO2 30%. PT TOLERATING WELL. PT HAS REMAINDED AWAKE MOST OF THESHIFT WATCHING TV, AND HAS HAD NO COMPLAINTS. BOOTS INTACT. PT REMAINS ON SPECIALITY BED. MONITORS INTACT WITH ALARMSSET, NO AUCTE CHANGES DURING SHIFT WILL CONTIUE TO MONITOR
--- NOTE | 2018-02-27 14:03 | NUR ---
IMELDA FROM [facility] SPOKE WITH YEN AND OTHER FAMILY MEMBERS YESTERDAY TO EXPLAIN LTAC AND ANSWER THEIR QUESTIONS. FAXED UPDATED CLINICAL INFO TO [facility] SO THEY CAN WORK ON GETTING AUTH FROM INSURANCE, INSURANCE REQUIRED THAT PT HAVE A TRACH FOR A WEEK, WHICH IS TOMORROW.
[2018-02-27 15:57] LABS: ABSOLUTE EOSINOPHILS 0.1 thou/uL (0.0-0.7); ABSOLUTE LYMPHOCYTES 1.1 thou/uL (0.8-5.3); ABSOLUTE MONOCYTES 0.7 thou/uL (0.0-1.2); ABSOLUTE NEUTROPHILS 5.3 thou/uL (1.6-8.1); BASOPHILS 0.7 %; EOSINOPHILS 1.1 %; HEMATOCRIT 26.6 % (42.0-52.0); HEMOGLOBIN 8.9 gm/dL (14.0-18.0); LYMPHOCYTES 15.5 %; MCH 29.7 pg (26.0-34.0); MCHC 33.5 g/dL (28.0-37.0); MCV 88.6 fL (80.0-100.0); MONOCYTES 9.3 %; MPV 8.2 fl. (7.2-11.1); NUCLEATED RBCS 0 /100WBC; PLATELET COUNT* 164 thou/uL (150-400); POLYS 73.4 %; RBC 3.01 mil/uL (4.50-6.00); RDW-CV 15.6 % (10.5-14.5); WBC 7.2 thou/uL (4.0-11.0)
--- NOTE | 2018-02-27 17:26 | NUR ---
PT CARE ASSUMED AFTER REPORT. ASSESSMENTS COMPLETE. SR ON MONITOR. O2 PER KAIVN HARO. RODRIGUEZ TO DD. DENIES PAIN. SLOWLY PROGRESSING TOWARDS GOALS.
[2018-02-28] VITALS (17 sets, daily range): BP systolic 121–163; BP diastolic 72–88
--- NOTE | 2018-02-28 04:56 | NUR ---
patient progressing towards goals. no acute hemodynamic changes overnight. tolerated vent well. NSR on monitor. Coarse lung sounds at times, requires frequent suctioning pt has recurrent secretions. pt able to nod head when asked questions. low grade fever overnight. tube feeds in place low residuals, tolerating well. no BM noted. pt received oral care and q6h flushes. pt has no concerns at this time. bed to lowest position. call light in place. will continue to monitor.
--- NOTE | 2018-02-28 08:25 | NUR ---
DR HEATON REMOVED STITCHES FROM TRACH AT 0815 ON 02/28/17
[2018-02-28] MEDS ORDERED: ENOXAPARIN40 MG/0.1 SUBQ (10:10)
[2018-02-28] MEDS ORDERED: PROTONIX40 M1 PO (10:12)
[2018-02-28] MEDS ORDERED: FLUSH FLUSH (10:13)
[2018-02-28] MEDS ORDERED: ALBUTEROL S2 MG/5 ML PO (10:14)
[2018-02-28] MEDS ORDERED: LORAZEPAM 22 MG/1 ML IV (10:15)
[2018-02-28] MEDS ORDERED: GEODON20 MG PO (10:17)
[2018-02-28] MEDS ORDERED: HUMALOG100 UNIT/1 SUBQ (10:18)
[2018-02-28] MEDS ORDERED: HYDROCODON-ACE1 EAC7 PER TUBE (10:21)
[2018-02-28] MEDS ORDERED: ATIVAN0.5 MG PO (10:22)
[2018-02-28 11:41] LABS: ABSOLUTE EOSINOPHILS 0.1 thou/uL (0.0-0.7); ABSOLUTE LYMPHOCYTES 0.8 thou/uL (0.8-5.3); ABSOLUTE MONOCYTES 0.3 thou/uL (0.0-1.2); ABSOLUTE NEUTROPHILS 4.9 thou/uL (1.6-8.1); BASOPHILS 0.3 %; HEMATOCRIT 28.6 % (42.0-52.0); HEMOGLOBIN 9.2 gm/dL (14.0-18.0); LYMPHOCYTES 13.8 %; MCH 29.1 pg (26.0-34.0); MCHC 32.3 g/dL (28.0-37.0); MONOCYTES 4.8 %; MPV 8.1 fl. (7.2-11.1); NUCLEATED RBCS 0 /100WBC; PLATELET COUNT* 170 thou/uL (150-400); POLYS 80.1 %; RBC 3.18 mil/uL (4.50-6.00); RDW-CV 16.6 % (10.5-14.5); WBC 6.1 thou/uL (4.0-11.0)
[2018-02-28 12:15] LABS: CREATININE 0.4 mg/dL (0.6-1.3); POTASSIUM 4.2 mmol/L (3.5-5.1)
--- NOTE | 2018-02-28 13:30 | NUR ---
SPOKE WITH IMELDA AT [facility]. [facility] HAS DENIED LTAC AT THIS POINT, THEY NOW SAY PT HAS TO HAVE TWO FAILED ATTEMPTS AT NIGHTTIME WEANING FROM THE VENT BEFORE HE CAN BE CONSIDERED FOR LTAC. NURSING NOTIFIED AND WILL LET PHYSICIANS KNOW.
--- NOTE | 2018-02-28 17:39 | NUR ---
PATIENT PROGRESSING TOWARDS GOALS. REMAINED ON TRACH SHEID THROUGHOUT DAY, RESPIRATIONS IN HIGH 20S LOW 30S. O2 SAT REMAINED STABLE. LOW GRADE FEVER NOTED THIS EVENING. PATIENT HAVING COPIOUS THIN BEIGE SECRETIONS FROM TRACH THROUGHOUT SHIFT. PER INSURANCE, PATIENT HAS TO FAIL TWO NIGHTTIME WEANING TRIALS TO QUALIFY FOR LTACH. DR DEE NOTIFIED. ORDERS TO KEEP PATINET ON TRACH SHEILD THROGHOUT NIGHT UNLESS PATIENT BECOMES TACHYPNEIC, TACHYCARDIC, OR HYPOXIC. PATIENT WORKED WITH PT TO SIT ON EDGE OF BED, PER PT PATIENT NOTED SOME STIFFNESS TO LEGS, EXTRA PASSIVE RANGE OF MOTION REQUIRED WHILE IN BOOTS. VISITED X1 THIS SHIFT FOR 30 MINUTES. DENIED NEW CONCERNS ABOUT PATIENT CARE.
[2018-03-01] VITALS (14 sets, daily range): BP systolic 88–161; BP diastolic 52–103
--- NOTE | 2018-03-01 07:58 | NUR ---
PATIENT SLOWLY PROGRESSING. HE DID HAVE SEVERAL MOMENTS OF INCREASED HEART RATE AND RR BUT DID NOT SUSTAIN OR SHOW DISCOMFORT O2 SAT REMAINED 100%. PT DID NOT GET MUCH SLEEP. DENIES PAIN. CONTINUES WITH TUBE FEED TOLERATING WELL. BED TO LOWEST POSITION. CALL LIGHT IN PLACE. WILL CONTINUE TO MONITOR.
--- NOTE | 2018-03-01 10:44 | NUR ---
PT ALERT AND AWAKE. HR 100-106. RESPIRATIONS 21-31. OXYGEN 99%. PT REPOSITIONED. ORAL CARE GIVEN. THICK WHITE MUCOUS SUCTIONED BELOW TRACH. COUGHING AT TIMES. PT CALM AND COOPERATIVE IN BED. UPDATE GIVEN TO YEN CALDERA. WILL CONTINUE PLAN OF CARE.
--- NOTE | 2018-03-01 12:38 | NUR ---
HR 120. OXYGEN SATURATION 85%. RESPIRATIONS 35. RT PAGED AND PT PLACED ON VENT.
--- NOTE | 2018-03-01 18:21 | NUR ---
THIS AFTERNOON HR SUSTAINING AT 130. BP 130'S/70'S - 160'S/90'S. NOTIFIED AND RECEIVED ORDER FOR CARVEDILOL. DTR IMELDA IN ROOM AND EDUCATION ON NEW MEDICATION.
--- NOTE | 2018-03-01 18:23 | NUR ---
DTR IMELDA EXPRESSED INTRESTS IN TALKING TO DR. DR TISHA OROZCO AND CAME TO SPEAK WITH DTR. PT HAD BM THIS SHIFT. DTR ROSA IN ROOM AT THIS TIME. PT CLEANED UP AND REPOSITIONED. DTR EXPRESSED CONCERN ABOUT PT'S HYGIENE DURING EPISODE OF INCONTINENCE. THIS RN ASKED DTR IF SHE WOULD LIKE TO SPEAK THIS RN'S SUPERIOR. DTR DECLINED. PT HAS SCABBED AREA ON LEFT INDEX FINGER AND TWO ON LEFT ANTERIOR WRIST/FOREARM. DTR REQUESTED NEOSPORIN. NEOSPORIN ORDERED AND APPLED TO THESE AREAS AND EACH WOUND COVERED WITH A BANDAID.
--- NOTE | 2018-03-01 18:47 | NUR ---
PT HAS BEEN ON VENTILATOR FROM APPROXIMATELY 1300 UNTIL NOW. SPOKE TO PULMONARY PT TO CONTINUE ON VENTILATOR FOR THE NIGHT.
[2018-03-02] VITALS (22 sets, daily range): BP systolic 112–151; BP diastolic 61–87
--- NOTE | 2018-03-02 05:19 | NUR ---
PATIENT STAYED ON VENT THROUGHOUT THE NIGHT. NO SIGNS OF DISTRESS. PT SEEMS TO HAVE A MORE FLAT AFFECT THEN NIGHT BEFORE. PT RECEIVED FULL BED TOLERATED WELL. CHANGED WOUND DRESSINGS. SR ON MONITOR. RR, O2 AND BP WNL. BED TO LOWEST POSITION. CALL LIGHT WITHIN REACH.
--- NOTE | 2018-03-02 11:04 | NUR ---
PT ALERT. VSS. AFEBRILE. WEANING TRIAL PER [facility]. PT THEN PLACED ON TRACH SHEILD. RECEIVED ORDERS FROM PULMONARY FOR PARAMATERS REQUIRING VENTILATOR USAGE. PT TOLERATING TRACH SHEILD. PT WORKED WITH PHYSICAL THERAPY. DURING THERAPY HEART RATE WENT TO 112. THERAPY THEN STOPPED. BM THIS AM. TUBE FEEDING RESIDUALS 0-1ML. NEOSPORIN APPLIED TO 3 SCABS ON LEFT ARM. NEOSPORIN APPLIED TO SCAB ON LEFT SHOULDER.
--- NOTE | 2018-03-02 13:21 | NUR ---
HEART RATE 103. RESPIRATIONS 37. OXYGEN SATURATION 88% ON TRACH SHEILED. RT PAGED TO PUT ON VENTILATOR.
--- NOTE | 2018-03-02 14:58 | NUR ---
CARVEDILOL HELD DURING LAND USE PLANNER REPORT DUE TO BP'S. DR NOTIFIED. CARVEDILOL DOSAGE DECREASED.
--- NOTE | 2018-03-02 17:57 | NUR ---
PT ON VENT. PT REPOSITIONED. ORAL CARE GIVEN. GAVE UPDATE TO YEN IN AM.
[2018-03-03] VITALS: BP 102/47
[2018-03-03 03:00] VITALS: BP 119/68
[2018-03-03 08:00] VITALS: BP 125/59
--- NOTE | 2018-03-03 09:21 | NUR ---
PT OFF VENT AND ON TRACH SHIELD ALL OF SATURDAY NIGHT, HOWVER PER NURSES NOTES PT SLEPT VERY LITTLE OVER NIGHT. PT HAD TO BE PUT BACK ON THE VENT 03/01 AT 1240 FOR O2 SAT 85%, PT HAD SUSTAINED HR 130'S AND WAS STARTED ON CARVEDILOL. PT REMAINED ON THE VENT THE REST OF THE DAY WEDNESDAY 03/01 AND OVERNIGHT SATURDAY NIGHT. PT ON TRACH SHIELD THURSDAY 03/02 UNTIL ABOUT 1330 AND THEN HAD TO BE PUT ON THE VENT.
[2018-03-03 10:01] VITALS: BP 160/78
[2018-03-03 12:00] VITALS: BP 151/68
--- NOTE | 2018-03-03 14:30 | NUR ---
WOUND CARE NOTE: REASSESSMENT OF SACROCOCCYGEAL UNSTAGEABLE PRESSURE ULCER DRESSING INTACT. MEASURES 2.2X3X0.1. LYDIA-WOUND WITH NEW EPITHELIUM. WOUND BED WITH 80% YELLOW, MOIST, ADHERENT SLOUGH TISSUE. 20% WITH RED, MOIST, FRIABLE TISSUE. CLEANSED WOUND WITH WOUND CLEANSER, PATTED DRY. APPLIED SKIN PREP. APPLIED AQUACEL AG TO WOUND BED. COVERED WITH EXUDERM. SECURED WITH TEGADERM. PATIENT TOLERATED DRESSING CHANGE WELL. CONTINUE WITH CURRENT PLAN OF CARE
[2018-03-03 22:00] VITALS: BP 141/65
[2018-03-04] VITALS (18 sets, daily range): BP systolic 119–207; BP diastolic 56–99
--- NOTE | 2018-03-04 05:08 | NUR ---
REPORT RECEIVED FROM OFF GOING SHIFT, AND CARE ASSUMMED. PT AWAKE AND WATCHING TV, SMILED ANDSHOOK HEAD TO QUESTIONS WESHADY ASKED. TRCH SHIELD INTACT AT 30%, MONITORS INTACT WITH ALARMS SET. RODRIGUEZ INTACT AND PATENT DRAINING YELLOW URINE TO BEDSIDE BAG. JEVITY 1.5 INFUSING VIA PUMP AT 50CC/HR VIA PUMP ORDERED. VSS AND NO ACUTE CHANGES DURING CHIFT WILL CONTINUE TO MONITOR
--- NOTE | 2018-03-04 15:49 | NUR ---
RECEIED VM FROM YEN EARLIER, STATING SHE WANTED TO MEET WITH DR. MEDINA 'FACE TO FACE SO WE CAN HAVE A DISCUSSION ABOUT HOW LUANA'S BRAIN IS WORKING.' CALLED AND SPOKE WITH DR. MEDINA, HE SAID HE HADN'T SEEN PT IN SEVERAL WEEKS BUT HE COULD COME BY SOMETIME TOMORROW TO EVAL PT AGAIN AND THEN SPEAK WITH ON SATURDAY, HE SAID HE WOULD BE HERE AROUND MID-DAY.
--- NOTE | 2018-03-04 16:30 | NUR ---
LENGTHY DISCUSSION WITH YEN, DTR IMELDA, AND DTR JESSICA. THEY ALL SAY THAT THEY DON'T THINK THIS IS WHAT PT WOULD WANT, 'WE NEVER SHOULD HAVE DONE THE TRACH AND PEG, HIS BRAIN WASN'T RIGHT BEFORE ALL THIS. IF HE CAN'T GET IN HIS TRUCK AND DRIVE WHERE HE WANTS TO GO, HE WOULDN'T WANT TO LIVE LIKE THIS.' EXPLAINED THAT PT IS MAKING PROGRESS, HE IS ABLE TO BREATHE ON HIS OWN, IT IS GOOD THAT HE IS ABLE TO COUGH UP HIS SECRETIONS, HE WAS SITTING ON THE SIDE OF THE BED COMBING HIS HAIR WITH O.T, HE CCAN FOLLOW SIMPLE DIRECTIONS. FAMILY SAID THEY HAVE TALKED WITH A FAMILY FRIEND WHO IS A DOCTOR ABOUT HIS SITUATION. THEY WANT TO TALK TO DR. MEDINA 'TO FIND OUT HOW HIS BRAIN IS AND THEN WE WILL MAKE DECISIONS FROM THERE.' NURSING UPDATED, DR. ALONSO UPDATED.
--- NOTE | 2018-03-04 18:52 | NUR ---
PATIENT SOMEWHAT PROGRESSING WELL TOWARDS GOALS. ON TRACH SHIELD ALL SHIFT BUT DOES GET TACHYCARDIC AT TIMES AND TACHYPNEIC. STILL PRODUCING LOTS OF SECRETIONS BUT ABLE TO COUGH THEM UP INTO THE TRACH SHIELD. FAMILY VISITED AT 1500 THIS AFTERNOON AND HAD A LONG TALK WITH GILMAR. DAUGHTER IMELDA SPOKE WITH THIS NURSE THAT SHE IS CONCERNED THAT HER FATHER IS BEING TORTURED AND THAT HE WOULD NOT HAVE WANTED THIS. I ASSURED THE DAUGHTERS AND THAT HE IS MAKING SMALL IMPROVEMTNS AND THAT THIS COULD NOT BE PERMANENT. STILL WAITING FOR INSURANCE APPROVAL TO SEND PATIENT TO LTACH. URBAN PEREA CALLED TO THIS NURSE AFTER WORKING WITH PATIENT WHILE DAUGHTER WAS IN THE ROOM AND NOTIFIED ME THAT DAUGHTER CONTINUES TO ASK PATIENT IF SOMEONE IS HURTING HIM AND IF HE IS AFRAID. GILMAR AND ALFREDO HAMILTON ARE AWARE OF SITUATION. PATIENT COMPLAINS OF NO PAIN, NAUSEA OR SHORTNESS OF AIR. ON TRACH SHIELD AT THIS TIME. SHOW HORSE DRIVER IN PLACE. HAS CALL LIGHT IN REACH.
[2018-03-05] VITALS (12 sets, daily range): BP systolic 117–177; BP diastolic 57–91
--- NOTE | 2018-03-05 06:04 | NUR ---
PATIENT PROGRESSING. MORE ALERT AND INVOLVED IN CARE. PT RECEIVED FULL BED BATH. HAD MODERATE SIZE BM FORMED. CHANGED TUBE FEEDS. PT DID NOT SLEEP AT ALL THROUGHOUT THE NIGHT. VITAL SINGS WNL. REMAINED ON TACH SHELID TOLERATING WELL. CALL LIGHT WITHIN REACH. BED TO LOWEST POSITION. WILL CONTINUE TO MONITOR.
--- NOTE | 2018-03-05 10:30 | NUR ---
WENT IN THE ROOM WITH DR. ALONSO WHEN HE TALKED TO THE PATIENT ABOUT CODE STATUS. PT WAS CONSISTENT IN HIS ANSWERS, WHEN ASKED IN 5 DIFFERENT WAYS, THAT HE WANTED TO BE A FULL CODE.
--- NOTE | 2018-03-05 17:11 | NUR ---
PT CARE ASSUMED AFTER REPORT. ASSESSMENTS COMPLETE. SR ON MONITOR. PT HR IN THE LOW 100'S WHILE WORKING WITH PHYSICAL THERAPY. RODRIGUEZ TO VICKEY. TRACH SHIELD IN PLACE. PT WITH LARGE AMOUNTS OF SECRETIONS OUT OF HIS TRACH. SUCTIONED FREQUENTLY AND DRY NEW DRAIN SPOUNGES APPLIED PRN. INNER CANULA CHANGED. PT INCONT OF SMALL BM. TUBE FEEDING PER PEG TUBE AT GOAL RATE OF 55ML. PT ABLE TO COMMUNICATE USING FULL SENTENCES MOUTHING HIS ANSWERS TO DR DIOR' QUESTIONS. PT STATES THAT HE DOES NOT WANT TO BE A DNR. PT ASKED NUMOROUS TIMES AND STAES HE WANTS ALL LIFE SAVING MEASURES. DENIES PAIN. PROGRESSING TOWARDS GOALS. PT YEN UPDATED PER PHONE TODAY ON PT CONDITION.
[2018-03-06] VITALS (17 sets, daily range): BP systolic 110–180; BP diastolic 57–94
--- NOTE | 2018-03-06 04:39 | NUR ---
NO ACUTE HEMODYNAMIC CHANGES OVERNIGHT. PT REFUSED BATH LAST NIGHT. HE NODED NO WHEN ASKED IF BATH COULD BE GIVEN. PT REFUSING TRACH CARE AT TIMES. DID NOT ALLOW ME TO CHANGE GOWN. PT WAS ABLE TO SLEEP FOR 2-3 HOURS. TRIED TO PROMOTE SLEEP AND REST. PATIENT PARTICIPATED MORE IN SLEF CARE WHEN ENCOURAGEMENT. RECEIVED Q2H TURNS. CHANGED TUBE FEED BOTTLE TOLERATING WELL. PT LOOKING FORWARD TO WORK WITH PHYSICAL THERAPY. BED TO LOWEST POSITION. CALL LIGHT IN PLACE. WILL CONTINUE TO MONITOR.
--- NOTE | 2018-03-06 08:00 | NUR ---
ASSUMED CARE OF THIS PATIENT. PATIENT IS ALERT, FOLLOWS COMMANDS. ASSESSMENT CHARTED. PATIENT ON TRACH SHILED AT THIS TIME AND TOLERATING WELL. CONTINUES TO COUGH UP LOTS OF SECRETIONS BUT CLEARS THEM FROM TRACH ON OWN. WATCHING TV, DENIES PAIN, NAUSEA OR SHORTNESS OF AIR. VITALS WNL. PAPER AND PEN AT BEDSIDE FOR COMMUNICATION AND PATIENT TO DRAW. GOALS FOR TODAY ARE TO INCREASE ACTIVITY WITH PHYSICAL THERAPY AND OCCUPATIONAL THERAPY, MAINTAIN A PATENT AIRWAY, AND SAFTEY WITH FALL PRECAUTIONS IN PLACE. SCROLL SHEAR OPERATOR IN PLACE, CALL LIGHT IN REACH, WILL CONTINUE TO MONITOR.
[2018-03-06 09:12] LABS: ABSOLUTE LYMPHOCYTES 0.8 thou/uL (0.8-5.3); ABSOLUTE MONOCYTES 0.5 thou/uL (0.0-1.2); ABSOLUTE NEUTROPHILS 3.6 thou/uL (1.6-8.1); BASOPHILS 0.4 %; EOSINOPHILS 0.8 %; HEMOGLOBIN 9.9 gm/dL (14.0-18.0); LYMPHOCYTES 16.2 %; MCH 29.2 pg (26.0-34.0); MCHC 33.1 g/dL (28.0-37.0); MCV 88.4 fL (80.0-100.0); MONOCYTES 10.9 %; MPV 7.7 fl. (7.2-11.1); NUCLEATED RBCS 0 /100WBC; PLATELET COUNT* 271 thou/uL (150-400); POLYS 71.7 %; RBC 3.39 mil/uL (4.50-6.00); RDW-CV 16.6 % (10.5-14.5)
[2018-03-06 09:29] LABS: ALBUMIN 2.3 g/dL (3.4-5.0); CALCIUM 8.3 mg/dL (8.5-10.1); CREATININE 0.5 mg/dL (0.6-1.3); POTASSIUM 3.7 mmol/L (3.5-5.1); TOTAL BILIRUBIN 0.4 mg/dL (<0.1-1.0); TOTAL PROTEIN 5.5 g/dL (6.4-8.2)
--- NOTE | 2018-03-06 10:54 | NUR ---
GAVE PATIENT PEN AND PAPER TO WRITE. PATIENT GUI A FACE, WITH LORRIE AND EYES AND MOUTH.
--- NOTE | 2018-03-06 12:45 | NUR ---
DR MEDINA MET WITH , DISCUSSED PT'S PROGRESS WITH HER, DISCUSSED THAT PT IS PROGRESSING SLOWLY BUT MAKING PROGRESS. HE SAID THE ONLY DECISION NOW REALLY IS IF THE PT WANTS TO BE A FULL CODE OR NOT, PT CLEARLY STATED YESTERDAY TO DR. ALONSO THAT HE WANTED TO BE A FULL CODE. DR MEDINA RECOMMENDS CONTINUING TO WORK ON GETTING PT TO LTAC OR APPROPRIATE LEVEL OF REHAB FOR CONTINUED PT, OT, ST, AND RT FOR NEW TRACH. SEEMS HAPPY WITH DISCUSSION AND AGREES THAT PT IS MAKING SLOW STEPS IN THE RIGHT DIRECTION. SHE SAID SHE WOULD CALL HER DTRS AND UPDATE THEM.
--- NOTE | 2018-03-06 15:35 | NUR ---
SPEECH THERAPY CAME TO SEE PATIENT THIS EVENING AND PLACED A TRACH SPEAKING VALVE. PATIENT IS TOLERATING WELL. SPEECH WILL CONTINUE TO FOLLOW PATIENT. SITTING UP IN CHAIR STILL AND TOLERATING WELL.
--- NOTE | 2018-03-06 17:32 | NUR ---
PATIENT PROGRESSING WELL TOWARDS GOALS. CONTINUES TO WEAR SPEAKING VALVE AND TOLERATING WELL. BACK TO BED WITH 2 ASSIST. PATIENT SEEMS TO BE ALERT AND ORIENTED X3. HE IS DISORIENTED TO TIME, THINKS ITS 1998. HE CONTINUES TO FOLLOW COMMANDS AND IMPROVE STRENGTH. WATCHING TV AT THIS TIME AND RESTING. WAS AT BEDSIDE THIS AFTERNOON AND SPOKE WITH CAROL. PLAN TO PROCEED WITH SKILLED FACILITY FOR CONTINUED CARE. PATIENT DID NOT REQUIRE VENTILATOR AT ALL THIS SHIFT. ON ROOM AIR AT THIS TIME. BED IN LOWEST POSITION, CALL LIGHT IN REACH, FALL PRECAUTIONS IN PLACE.
[2018-03-07] VITALS (9 sets, daily range): BP systolic 110–158; BP diastolic 52–89
--- NOTE | 2018-03-07 05:54 | NUR ---
PATIENT PROGRESSING TOWARDS. NO ACUTE HEMODYNAMIC CHANGES. PT WANTS TO GET UP OUT OF BED VOICED SEVERAL TIMES. ABLE TO COMMUNICATE BETTER. HE ATTEMPTED TO GET OUT OF BED TWICE. BED ALARM ON. RECEIVED MELATONIN SLEPT FOR ABOUT 3 HOURS. Q2H TURNS. FREQUENT ORAL CARE. NO CONCERNS AT THIS TIME. WILL CONTINUE TO MONITOR.
--- NOTE | 2018-03-07 09:05 | NUR ---
PATIENT IS NOW TELE STATUS
--- NOTE | 2018-03-07 18:00 | NUR ---
PATIENT PROGRESSING WELL TOWARDS GOALS AT THIS TIME. WAS ABLE TO SIT UP IN CHAIR TODAY, GAVE SELF MOST OF HIS SPONGE BATH WITH SET UP ASSISTANCE. CONTINUES TO ASK IF HE CAN GO HOME BUT EXPLAINED HE NEEDS MORE TIME TO GET STRONGER. TRACH CARE COMPLETED THIS SHIFT AND INNER CANULA CHANGED. SPOKE WITH EARLIER THIS AFTERNOON AND LET HER KNOW THE PATIENT MIGHT MOVE UPSTAIRS TO ANOTHER ROOM ONCE AVAILABLE, INFORMED HER WE WOULD CALL IF HE MOVED IN THE MIDDLE OF THE NIGHT. PATIENT HAS NO COMPLAINTS AT THIS TIME. TOLERATING SPEAKING VALVE THROUGHOUT THE DAY. ON ROOM AIR AND WILL HAVE HUMIDFICATION AT NIGHT. TOLERATING TUBE FEED. BED IN LOWEST POSITION, CALL LIGHT IN REACH, FALL PRECAUTIONS IN PLACE.
[2018-03-08] VITALS: BP 142/71
[2018-03-08 04:00] VITALS: BP 136/60
--- NOTE | 2018-03-08 05:19 | NUR ---
PT TRANSFERRED TO ROOM 221 AT AROUND 2300. ASSESSMENT COMPLETED CHARTED. SUNCTION AND TRACH CARE COMPLETED. NO C/O PAIN OR DISCOMFORT. ABLE TO MAKE SOME NEEDS KNOWN. FINDS IT DIFFICULT TO COMMUNICATE AT TIMES. [id number], WILL CONTINUE TO MONITOR.
[2018-03-08 06:03] LABS: ABSOLUTE EOSINOPHILS 0.1 thou/uL (0.0-0.7); ABSOLUTE LYMPHOCYTES 0.9 thou/uL (0.8-5.3); ABSOLUTE MONOCYTES 0.7 thou/uL (0.0-1.2); ABSOLUTE NEUTROPHILS 2.9 thou/uL (1.6-8.1); BASOPHILS 0.7 %; EOSINOPHILS 1.3 %; HEMOGLOBIN 9.5 gm/dL (14.0-18.0); LYMPHOCYTES 20.4 %; MCH 28.9 pg (26.0-34.0); MCHC 32.7 g/dL (28.0-37.0); MCV 88.4 fL (80.0-100.0); MONOCYTES 14.2 %; MPV 7.4 fl. (7.2-11.1); NUCLEATED RBCS 0 /100WBC; POLYS 63.4 %; RBC 3.29 mil/uL (4.50-6.00); RDW-CV 16.5 % (10.5-14.5); WBC 4.6 thou/uL (4.0-11.0)
[2018-03-08 06:04] LABS: PLATELET COUNT* 392 thou/uL (150-400)
[2018-03-08 06:20] LABS: ALBUMIN 2.6 g/dL (3.4-5.0); CALCIUM 8.5 mg/dL (8.5-10.1); CREATININE 0.6 mg/dL (0.6-1.3); POTASSIUM 3.6 mmol/L (3.5-5.1); TOTAL BILIRUBIN 0.4 mg/dL (<0.1-1.0); TOTAL PROTEIN 5.9 g/dL (6.4-8.2)
[2018-03-08 07:45] VITALS: BP 149/71
[2018-03-08 11:38] VITALS: BP 158/83
[2018-03-08 15:59] VITALS: BP 132/84
--- NOTE | 2018-03-08 17:23 | NUR ---
PATIENT PROGRESSING TOWARDS GOALS. UP IN CHAIR X1 THIS SHIFT. TRANSFERED TO [facility] TO ATTEMPT BOWEL MOVEMENT WITH NO RESULT. PATIENT RODRIGUEZ CATHETER DISCONTINUED. ATTEMPTED TO EXPLAIN URINAL TO PATIENT, UNABLE TO USE AT THIS TIME. INCONTINENCE X2. PATIENT ABLE TO TAKE SOME STEPS WITH PT THIS AFTERNOON. TRACH CARE COMPLETED. PATIENT REMAINS ON JEVITY 1.5 AT GOAL WITH LOW RESIDUALS. HOSPITALIST REQUESTS DIETARY EVAL FOR BOLUS FEEDINGS. DIETARY OFF UNTIL SATURDAY. , YEN, CALLED, BUT UNABLE TO COME TO HOSPITAL TODAY. UPDATED ON PLAN OF CARE. DENIES NEW CONCERNS.
[2018-03-08 20:00] VITALS: BP 124/71
[2018-03-09 00:08] VITALS: BP 114/67
[2018-03-09 04:57] VITALS: BP 112/61
[2018-03-09 05:14] LABS: ABSOLUTE EOSINOPHILS 0.1 thou/uL (0.0-0.7); ABSOLUTE LYMPHOCYTES 1.4 thou/uL (0.8-5.3); ABSOLUTE MONOCYTES 0.9 thou/uL (0.0-1.2); ABSOLUTE NEUTROPHILS 3.1 thou/uL (1.6-8.1); BASOPHILS 0.4 %; EOSINOPHILS 1.2 %; HEMATOCRIT 30.4 % (42.0-52.0); LYMPHOCYTES 25.1 %; MCH 29.4 pg (26.0-34.0); MPV 7.9 fl. (7.2-11.1); NUCLEATED RBCS 0 /100WBC; PLATELET COUNT* 460 thou/uL (150-400); POLYS 57.3 %; RBC 3.41 mil/uL (4.50-6.00); WBC 5.5 thou/uL (4.0-11.0)
[2018-03-09 05:35] LABS: ALBUMIN 2.6 g/dL (3.4-5.0); CALCIUM 8.6 mg/dL (8.5-10.1); CREATININE 0.5 mg/dL (0.6-1.3); POTASSIUM 3.3 mmol/L (3.5-5.1); TOTAL BILIRUBIN 0.5 mg/dL (<0.1-1.0); TOTAL PROTEIN 5.9 g/dL (6.4-8.2)
[2018-03-09 08:45] VITALS: BP 136/65
[2018-03-09 12:00] VITALS: BP 150/71
[2018-03-09 16:00] VITALS: BP 126/66
--- NOTE | 2018-03-09 19:41 | NUR ---
PT PROGRESSING TOWARD GOALS, UP TO CHAIR AND BACK TO BED MULTIPLE TIMES TODAY. IS IMPULSIVE, ASKES FOR "WATER" MULTIPLE TIMES. FALL PRECAUTIONS IN PLACE. PT ATTEMPTS TO GET OUT OF BED/CHAIR FREQUENTLY. PT INCONTINANT OF URINE, BUT DOES USE THE URINAL IF DIRECTED. WOUND DRESSING TO COCCYX C/D/I, TUBE FEEDS CONTINUOUS AT 80MLS/HR, PT TOLERATING WELL. AT BEDSIDE THIS AFTERNOON, ASKING ABOUT WHAT HE IS GETTING FOR NUTRITION, SHE WAS EDUCATED AND ASKED AGAIN SEVERAL HOURS LATER. PT BEING MONITORED CLOSELY. REPORT GIVEN TO BERNARD PEREZ
[2018-03-09 20:00] VITALS: BP 138/78
[2018-03-10] VITALS: BP 145/83
--- NOTE | 2018-03-10 02:54 | NUR ---
ASSUMED PT CARE AT 1930. ASSESSMENT COMPLETED CHARTED. PT KEEPS TRYING TO GET OUT OF BED TONIGHT. C/O OF PAIN "IN HIS WHOLE BODY", ABLE TO MAKE SOME NEEDS KNOWN. PT WATCHING TV, STATES HE IS HUNGRY AND THIRSTY AND WANTS WATER. BED ALARM ON, SCDS AND BOOTS ON. WILL CONTINUE TO MONITOR.
[2018-03-10 04:00] VITALS: BP 137/68
[2018-03-10 08:20] VITALS: BP 148/81
--- NOTE | 2018-03-10 11:04 | NUR ---
SPOKE WITH YEN BY PHONE. DISCUSSED WITH THAT PATIENT NO LONGER NEEDS AN LTAC LEVEL OF CARE. [facility] WAS NOTIFIED ON SATURDAY THAT PT HAS PROGRESSED ENOUGH THAT LTAC NOT NEEDED FOR CONTINUED VENT WEANING. PT IS PARTICIPATING WITH PT, OT, AND ST. PT WAS TALKING TO THE NURSE THIS MORNING SO IS PROGRESSING WITH THAT. INPATIENT REHAB EVAL ORDERED BY PHYSICIAN LAST SATURDAY, DISCUSSED THAT WITH . IS PLEASED WITH THE PROGRESS PATIENT IS MAKING, SHE SAID HE TOLD HER YESTERDAY TO BRING HIM A CHOCOLATE MILKSHAKE.
--- NOTE | 2018-03-10 13:22 | NUR ---
CM briefly spoke with Pt's dtr in the song way. Per dtr, if [facility] rehab is unable to accept Pt, they prefer [facility] or [facility] in rehab. Per dtr, her mom spoke with Dir of [facility] today regarding disposition. CM awaiting [facility] rehab decision to accept, following.
[2018-03-10 15:53] VITALS: BP 177/84
--- NOTE | 2018-03-10 19:59 | NUR ---
ASSUMED PT CARE AT 0730, FULL ASSESMENT DONE CHARTED. PT A/O X2, IMPULSIVE, FORGETFUL, DENIES PAIN, VSS, UP WITH 1 ASSIST, TO CHAIR, TUBE FEEDINGS CHANGED TO BOLUS FEEDINGS TODAY. PT TOLERATED WELL. COCCYX DRESSING CHANGE, PT HAD BM TODAY, INCONTINANT OF B/B. PT ABLE TO COMUNICATE NEEDS WELL TODAY, DOSE NOT ATTEMPT TO USE CALL LIGHT. FALL PRECAUTIONS IN PLACE. REPORT GIVEN TO AMAIRANI PEREZ
[2018-03-10 20:52] VITALS: BP 140/85
[2018-03-11] VITALS: BP 101/62
--- NOTE | 2018-03-11 02:12 | NUR ---
ASSUMED CARE OF PT AT 0130 FROM TELEMETRY, RECEIVED REPORT FROM Ismael BALES. PT SUCTIONED AND GIVEN BOLUS FEED AT 0155. PT TOLERATED ALL PROCEDURES WELL. Q2 TURNS FOR SKIN INTEGRITY, HOB AT 30 DEGREEES.PT RESTING COMFORTABLY AT THIS TIME.
--- NOTE | 2018-03-11 02:19 | NUR ---
PT TRANSFERED TO ROOM 103 AT APPROXIMATELY 01:30 THIS MORNING
--- NOTE | 2018-03-11 06:14 | NUR ---
PT HAS BEEN AWAKE SINCE TRANSFERRED TO THIS UNIT. PT IS NON COMPLIANT WITH FALL PRECAUTIONS. PT ATTEMPTTED TO CLIMB OUT OF BED MULTIPLE TIMES AND DOES NOT APPEAR TO UNDERSTAND DIRECTION. FALL PRECAUTIONS IN PLACE. HOURLY ROUNDING FOR SAFETY. CLWR
[2018-03-11 07:20] VITALS: BP 140/74
[2018-03-11 15:25] VITALS: BP 147/92
--- NOTE | 2018-03-11 17:20 | NUR ---
ASSUMED CARE OF PATIENT AT APPROX 0730. ALERT AND ORIENTED X4. ASSESSMENT COMPLETED AND CHARTED. VSS ON ROOM AIR. NO COMPLAINTS THIS SHIFT. PATIENT SLIGHTLY CONFUSED AND TRYING TO GET OUT OF BED AND THE CHAIR TODAY. TRACH PATENT AND SUCTIONED MULTIPLE TIMES TODAY WITH PRODUCTION OF THICK, WHITE SECRETIONS. TUBE FEEDS GIVEN BY BOLUS PER PEG TUBE. INSULING GIVEN PER ORDERS. DRESSING CHANGED ON COCCYX WOUND AFTER PATIENT HAD A BOWEL MOVEMENT TODAY. PATIENT TURNED AND REPOSITIONED THROUGHOUT THE DAY. FALL PRECAUTIONS IN PLACE AND FREQUENT MONITORING. HOURLY ROUNDS COMPLETED. NURSING WILL CONTINUE TO MONITOR.
[2018-03-11 22:47] VITALS: BP 135/59
--- NOTE | 2018-03-12 04:03 | NUR ---
ASSUMED CARE AT START OD SHIFT PT COLD CLAMMY BLOOD GLUCOSE CHECK READ <[address] AFTER TAKLING TO DR DDOD, BLOOD [id number] AFTER D50 GIVEN TUBE FEEDING SCHEDULED, PT REMAINS CONFUSED ATTEMPETD TO CLIMB OUT OF BED X2, INCONT OF URINE AND STOOL. SUCTIONING TRACH FREQUENLTY THIN TO THICK SECRECTIONS. WILL CONINTUE WITH CURRENT PLAN OF CARE.
[2018-03-12 04:26] LABS: ABSOLUTE LYMPHOCYTES 1.4 thou/uL (0.8-5.3); ABSOLUTE MONOCYTES 0.8 thou/uL (0.0-1.2); ABSOLUTE NEUTROPHILS 4.5 thou/uL (1.6-8.1); BASOPHILS 0.4 %; EOSINOPHILS 0.2 %; HEMATOCRIT 39.4 % (42.0-52.0); LYMPHOCYTES 20.5 %; MCH 28.9 pg (26.0-34.0); MCHC 30.5 g/dL (28.0-37.0); MONOCYTES 11.7 %; MPV 7.6 fl. (7.2-11.1); NUCLEATED RBCS 0 /100WBC; PLATELET COUNT* 514 thou/uL (150-400); POLYS 67.2 %; RBC 4.15 mil/uL (4.50-6.00); RDW-CV 17.3 % (10.5-14.5); WBC 6.7 thou/uL (4.0-11.0)
[2018-03-12 04:38] LABS: CALCIUM 9.1 mg/dL (8.5-10.1); CREATININE 0.6 mg/dL (0.6-1.3); POTASSIUM 4.1 mmol/L (3.5-5.1)
[2018-03-12 04:51] LABS: MCV 94.9 fL (80.0-100.0)
[2018-03-12 08:15] VITALS: BP 124/67
[2018-03-12 11:49] VITALS: BP 130/73
[2018-03-12 16:35] VITALS: BP 131/78
--- NOTE | 2018-03-12 17:12 | NUR ---
PATIENT REMAINED ALERT AND ORIENTED X'S 3. VITAL SIGNS AND SPO2 STABLE. IV CLEAN, FLUIDS INFUSING. PEG TUBE CLEAN, DRY, INTACT. GAVE JEVITY. PATIENT PASSED SWALLOW STUDY AND SWITCHED TO CHOPPED MECHANICAL DIET. O2 MACHINE IN ROOM IS ACTUALLY A TRACH HUMIDIFIER AND HAS NO O2 RUNNING AT ALL. PATIENT DOES NOT REQUIRE 02. TRACH CLEAN, DRY, INTACT. PATIENT COUGHED UP SMALL AMOUNTS OF CLEAR-WHITE SPUTUM THROUGHOUT SHIFT. PASSED BM AND VOIDED WITHOUT ISSUE. BG WELL CONTROLLED WITH SLIDING SCALE. COMPLETED HOURLY ROUNDING. CALL LIGHT WITHIN REACH. WILL CONTINUE TO MONITOR.
[2018-03-12 20:00] VITALS: BP 116/70
--- NOTE | 2018-03-13 06:52 | NUR ---
Patient was sitting up in the chair at the beginning of the shift. He seemed to be oriented x 2 and pleasant. Vitals were stable and his lungs sound coarse. His trach was intact. He did communicate that he wanted to get in bed. After he got in bed he was trying to get out of bed every 15 or 20 minutes. At about 2100 he pulled out his trach and it was replaced by respiratory with #8. Respiratory has been suctioning him.
--- NOTE | 2018-03-13 07:03 | NUR ---
Continued end of shift note. He continued to be restless. His night meds were crushed and given through pegtube. He kept placing his legs over the rails and trying to get out of bed. He is up with assist x 1 and walker. He does stand to void with urinal. He didn't have problems after the trach was replaced. He kept wanting to leave and get out of bed and I kept telling him it was nightime. I had to sit next to the bed b/c he set off the alarm about every 15 minutes. After sometime he kept trying to get out of bed and began getting angry with me. Eveytime I neared the bed he swung at me, I had to call security about 2330. He did calm down some after he talked to him. Dr Morelia muro seroromario and omer helped some, he finally get some rest. I was able to leave the bedside at 0230. This am he is beginning to try to get out of bed but he being able to be redirected.
[2018-03-13 07:45] VITALS: BP 146/67
--- NOTE | 2018-03-13 11:44 | NUR ---
WOUND NURSE: PATIENT SEEN FOR FOLLOWUP ASSESSMENT PERTAINING TO A COCCYGEAL PRESSURE INNJURY. PRESENTS WITH FULL THICKNESS TISSUE LOSS MEASURING 2.0 X 3.0 CM. THE WOUND BED CONTAINS SMOOTH YELLOWISH NONVIABLE TISSUE IN THE WOUND BED, EDGES CONTAIN LIGHT PINK EPITHELIAL TISSUE. THERE IS A MODERATE AMOUNT OF SEROUS DRAINAGE PRESENT ON THE OLD DRESSING. THERE IS NO NOTABLE PERIWOUND REDNESS OR WARMTH. WOUND WAS CLEANSED WITH SOAP AND WATER, RINSED WITH WATER, THEN PATTED DRY. SKIN PREP WAS APPLIED TO INTACT PERIWOUND TISSUE. APPLIED AQUACEL AG UNDER EXUDERM LP, THEN SECURED WITH SURESITE TRANSPARENT DRAPE. THIS WAS TOLERATED WELL BY THE PATIENT. PATIENT WAS INSTRUCTED ON IMPORTANCE OF FREQUENT REPOSITIONING FROM SIDE TO SIDE WHEN LYING IN BED WITH GOOD UNDERSTANDING ACHIEVED.
--- NOTE | 2018-03-13 15:08 | 2DMMODE ---
[place] [address] 2 D/M-MODE ECHOCARDIOGRAM Name: HIRALUANA ANDRAE Room: [address] IN [facility]#: [id number] Admission: 02/03/18 Attend Phys: Silvano Conn, Discharge: Date of : 48 Date of Service: 02/04/18 1700 Report #: [id number] THIS REPORT FOR: //name// APPROVED REPORT Study performed: 02/04/2018 13:09:57 EXAM: Comprehensive 2D, Doppler, and color-flow Echocardiogram Patient Location: In-Patient Room #: 004 Status: routine BSA: 1.67 HR: 106 bpm BP: 150/78 mmHg Rhythm: NSR Other Information Study Quality: Good Indications Non STEMI 2D Dimensions IVSd: 11.47 (7-11mm) LVOT Diam: 20.38 (18-24mm) LVDd: 43.51 mm PWd: 10.37 (7-11mm) LVDs: 27.65 (25-40mm) Aortic Root: 36.26 mm Volumes Left Atrial Volume (Systole) LA ESV Index: 35.30 mL/m2 Aortic Valve AoV Peak Karl.: 1.93 m/s AO Peak Gr.: 14.92 mmHg LVOT Max P.52 mmHg AO Mean Gr.: 7.98 mmHg LVOT Mean P.91 mmHg LVOT Max V: 1.06 m/s AO V2 VTI: 34.63 cm LVOT Mean V: 0.62 m/s VASHTI (VTI): 1.94 cm2 LVOT V1 VTI: 20.57 cm TDI Medial E' Karl.: 0.19 m/s Lateral E' Karl.: 0.22 m/[place] [address] 2 D/M-MODE ECHOCARDIOGRAM Name: LUANA INIGUEZ Room: [address] [place] .R.#: [id number] Admission: 02/03/18 Attend Phys: Silvano Conn, Discharge: Date of : 48 Date of Service: 02/04/18 1700 Report #: [id number] PV Peak Karl.: 1.19 m/s PV Peak Gr.: 5.62 mmHg Left Ventricle The left ventricle is normal size. There is normal LV segmental wall motion. There is normal left ventricular wall thickness. Left ventricular systolic function is normal. The left ventricular ejection fraction is within the normal range. LVEF is 60-65%. The left ventricular diastolic function is normal. Right Ventricle The right ventricle is normal size. The right ventricular systolic function is normal. Atria Left atrium is at the upper limits of normal. The right atrium size is normal. Aortic Valve Moderate aortic valve sclerosis. No aortic regurgitation is present. Mild aortic stenosis. Mitral Valve The mitral valve is normal in structure. There is no mitral valve regurgitation noted. No evidence of mitral valve stenosis. Tricuspid Valve The tricuspid valve is normal in structure. Unable to assess PA pressure. Trace tricuspid regurgitation. Pulmonic Valve The pulmonary valve is normal in structure. There is no pulmonic valvular regurgitation. Great Vessels The aortic root is normal in size. IVC is normal in size and collapses >50% with inspiration. Pericardium There is no pericardial effusion. <Conclusion> The left ventricle is normal size. There is normal left [place] [address] 2 D/M-MODE ECHOCARDIOGRAM Name: LUANA INIGUEZ Room: [address] [place] .R.#: [id number] Admission: 02/03/18 Attend Phys: Silvano Conn, Discharge: Date of : 48 Date of Service: 02/04/18 1700 Report #: [id number] Left ventricular systolic function is normal. The left ventricular ejection fraction is within the normal range. LVEF is 60-65%. The right ventricle is normal size. Left atrium is at the upper limits of normal. Moderate aortic valve sclerosis. No aortic regurgitation is present. Mild aortic stenosis. The mitral valve is normal in structure. The tricuspid valve is normal in structure. IVC is normal in size and collapses >50% with inspiration. There is no pericardial effusion. There is normal LV segmental wall motion. <ELECTRONICALLY SIGNED> By: Pascual Patricia MD, FACC 02/04/181699 99 99 Pascual Patricia MD, FACC /INF
--- NOTE | 2018-03-13 16:16 | NUR ---
CONTINUING TO FOLLOW PATIENT ALONG WITH DR. PAN. PATIENT CONTINUES TO IMPROVE. STILL SOME CONFUSION BUT EASILY REDIRECTS. PATIENT PASSED VIDEO SWALLOW NOW ON MECHANICAL CHOPPED DIET. PARTICIPATED BETTER WITH THEAPIES YESTERDAY, THERAPIES NOTES NOT IN YET TODAY. WILL SEE HOW PATIENT DOES AND IF ABLE TO PARTICIPATE MORE CONSISTANTLY OVER NEXT DAY OR TWO AND IF ABLE TO TOLERATE 3 HOURS OF THERAPY. ONCE ABLE TO TOLERATE AND MEDICALLY STABLE PATIENT WOULD BENEFIT FROM ACUTE REHAB. WILL CONTINUE TO FOLLOW.
[2018-03-13 16:21] VITALS: BP 110/60
--- NOTE | 2018-03-13 18:47 | NUR ---
ALERT AND ORIENTED X2-3. UP WITH ASSIST X1 WITH WALKER AND GAIT BELT. IV IS PATENT AND INFUSING. PAIN BEING MANAGED WITH PO MEDICATION. DENIES NAUSEA. TOLERATING DIET. TUBE FEEDING IS INFUSING AT THIS TIME, STARTED AT 1700. ATTENDED PHYSICAL AND OCCUPATIONAL THERAPY THIS SHIFT. SPEECH THERAPY RE-EVALUATED PATIENT AGAIN THIS SHIFT WITH REQUEST FROM DR. DEE, NO CHANGE IN DIET. VSS ON ROOM AIR, TRACH IN PLACE. HOURLY ROUNDS HAVE BEEN MAINTAINED THROUGHOUT SHIFT. CALL LIGHT IS WITHIN REACH. NURSING WILL CONTINUE TO MONITOR.
--- NOTE | 2018-03-13 19:54 | NUR ---
RN REVIEWED AND AGREES WITH STUDENT NURSES CHARTING
[2018-03-13 20:00] VITALS: BP 111/72
--- NOTE | 2018-03-14 04:30 | NUR ---
PT WAS A&Ox2-3 THROUGHOUT SHIFT. VITALS STABLE. PEG TUBE INTACT, INFUSING TUBE FEEDING. IV IN R FA PATENT, SL. PT PULLED OUT TRACHE WHILE SLEEPING AROUND 0200, OX LEVELS STABLE IN 90S. RT NOTIFIED AND REPLACED. NEW TRACHE IS NOW SECURE AND SECREATIONS SUCTIONED. NURSE AT BEDSIDE TO KEEP AN EYE ON PT. UP WITH ASSIST TO CAMMODE. FALL PRECAUTIONS IN [place]. HOURLY ROUNDING COMPLETE. Q2H TURNS COMPLETE. CALL LIGHT WITHIN REACH. WILL CONTINUE TO MONITOR.
[2018-03-14 08:00] VITALS: BP 116/70
[2018-03-14 15:23] VITALS: BP 110/76
--- NOTE | 2018-03-14 17:14 | NUR ---
ALERT AND ORIENTED X4. UP WITH ASSIST X1 WITH WALKER AND GAIT BELT. IV INFILTRATED THIS AFTERNOON, NO IV REPLACEMENT AT THIS TIME. PAIN BEING MANAGED WITH IV MEDICATION. DENIES NAUSEA. UP WITH PHYSICAL AND OCCUPATIONAL THERAPY THIS SHIFT. PATIENT FAILED HIS VIDEO SWALLOW THIS AFTERNOON AND IS NOW NPO WITH CONTINUOUS TUBE FEEDING AT THIS TIME. VSS ON ROOM AIR. TRACHEOSTOMY IN PLACE. HOURLY ROUNDS HAVE BEEN MAINTAINED THROUGHOUT SHIFT. CALL LIGHT IS WITHIN REACH. NURSING WILL CONTINUE TO MONITOR.
[2018-03-14 19:15] VITALS: BP 124/77
--- NOTE | 2018-03-14 19:35 | NUR ---
RN HAS REVIEWED AND AGREES WITH STUDENT NURSES CHARTING.
--- NOTE | 2018-03-14 21:12 | NUR ---
RECIEVED REPORT AND ASSUMED CARE OF PT AT 1915. PT PLEASANT AND COOPERATIVE, REPORTS GENERALIZED PAIN RATED AT 5. PT RECIEVED PRN TORADOL AT 1830. PT ABLE TO STAND INDEPENDENTLY AND AMBULATE WITH STANDBY ASSISTANCE. PT IMPULSIVE AT TIMES SETTING OFF ALARM. PT IN BED AT THIS TIME, HS CARES DONE. PEG TUBE OCCLUDED. UNABLE TO FLUSH OR ASPERATE. KATELYN VALVE REPLACED. STILL UNABLE TO FLUSH OR DRAW. KATELYN VALVE REMOVED. ATTEMPTED TO FLUSH AND ASPERATE DIRECTLY THROUGH PEG TUBE WITHOUT SUCCESS. COLA INJECTED AND ASPERATED WITHOUT SUCCESS. 60 CC SYRINGE LEFT INSIDE PEG TUBE WITH COLA IN SYRINGE. WILL ALLOW TIME TO PASS AND REATTEMPT TO CLEAR PEG. TUBE.
--- NOTE | 2018-03-14 23:36 | NUR ---
PT ATTEMPTING TO REMOVE FEEDING TUBE AT 1999. ENTERED PT'S ROOM AND WITNESSED PT PULLING HARD ON PEG TUBE. PT FOLLOWED INSTRUCTIONS TO STOP PULLING. PT'S GOWN AND LINENS CHANGED. TUBE FEEDING ALARMING AT THAT TIME. PEG TUBE OCCLUDED. PEG TUBE NOW FUNCTIONING. PT PULLING AT PEG TUBE MULTIPLE TIMES SINCE AND ATTEMPTING TO REMOVE TRACHEOSTOMY. PT CLIMING OUT OF BED MULTIPLE TIMES. BED ALARM SET. PT'S GAIT WEAK AND UNSTEADY. PT COMPLIES WITH INSTRUCTIONS BUT DOES NOT REMEMBER. SPOKE WITH DR LANE REGARDING SAFETY AND RECIEVED ORDERS.
[2018-03-14 23:40] VITALS: BP 126/76
--- NOTE | 2018-03-15 01:33 | NUR ---
PT ATTEMPTING TO GET OUT OF BED 4 TIMES WITHIN LAST HOUR. PT STATES HE SEDDS TO GET UP AND GET OUT OF HERE. REORIENTATION GIVEN EACH EPISODE. PT DOES NOT REORIENT OR ACCEPT REASONS TO STAY IN BED. WHEN ASKED WHERE HE NEEDS TO GO PT STATES " JANIE BEEN HERE TOO LAONG AND I NEED TO LEAVE". PT ORIENTED TO PERSON ONLY. PT STATES IT IS DAY TIME. WHEN ASKED WHERE HE IS PT STATES" SOME PLACE I DONT WANT TO BE". PT SUSPICIOUS AND STATES WE ARE KEEPING HIM AGAINST HIS WILL. ALL ATTEMPTS TO REORIENT UNSUCCESSFUL. PT CONTINUES SEPARATE PEG TUBE FROM TUBE FEEDING.
--- NOTE | 2018-03-15 02:42 | NUR ---
PT ATTEMPTING TO CLIMB OVER BED RAIL. INSTRUCTED PT TO STAY IN BED. PT NO T FOLLOWING COMMANDS AT THIS TIME.
--- NOTE | 2018-03-15 03:27 | NUR ---
PT COUGHING UP GARDNER PHLEGM. SUCTION COPIOUS AMOUNTS OF THICK GARDNER SPUTUM. RT PAGED AND WITH PT AT THIS TIME. BREATHING TREATMENT IN PROGRESS. PT GIVEN PRN TORADOL AND TYLENOL FOR REPORT OF PAIN ALL OVER AFTER COUGHING. NURSING ELECTRICAL MAINTENANCE TECHNICIAN PAGED FOR INNER CANULA.
--- NOTE | 2018-03-15 03:59 | NUR ---
PT'S INNER CANULA CHANGED. BREATHING TREATMENT COMPLETED. PT VOICED RELIEF. BED ALARM ON. CALL LIGHT IN REACH.
[2018-03-15 04:00] VITALS: BP 98/61
[2018-03-15 04:55] LABS: CREATININE 0.7 mg/dL (0.6-1.3); POTASSIUM 3.9 mmol/L (3.5-5.1)
--- NOTE | 2018-03-15 06:13 | NUR ---
PT NOT PROGRESSING TOWARD GOALS. PT UNABLE TO REMEMBER INSTRUCTIONS. PT RESTLESS AND IMPULSIVE CLIMBING OUT BED MULTIPLE TIMES DURING SHIFT. PT HIGH RISK FOR SELF HARM. PT WEAK AND UNSTEADY. PT ATTEMPTING NUMEROUS TIMES TO PULL OUT PEG TUBE. PT ALSO ATTEMPTS TO REMOVE TRACH. FALL PRECAUTIONS IN PLACE. BED AND CHAIR ALARM ON. PT'S ROOM NEXT TO NURSES STATION. ALL ATTEMPTS TO EDUCATE, REORIENT, REDIRECT UNSUCCESSFUL. ORDER FOR ONE TO ONE RECIEVED FROM DR LANE. SITTER NOT AVAILABLE DURING SENIOR ADMINISTRATIVE SERVICES OFFICER. SITTER AVAILABLE FOR ONCOMING SHIFT. VITAL SIGNS INCLUDING 02 SAT WITHIN NORMAL LIMITS. WILL CONTINUE TO MONITOR CLOSELY.
[2018-03-15 08:00] VITALS: BP 140/74
[2018-03-15 12:31] VITALS: BP 102/57
[2018-03-15 15:33] VITALS: BP 111/60
--- NOTE | 2018-03-15 17:09 | NUR ---
PT REMAINED ALERT AND ORIENTED TO SELF AND FORGETFULL. PT C/O PAIN, TYLENOL AND TORADOL GIVEN ORDERED. TUBE FEEDINGS KEPT CONTINUOUS AT 50 ML.HR. PT COUGHED UP THICK YELLOW MUCUS. SITTER IN ROOM. FALL RISK PRECAUTIONS IN PLACE. HOURLY ROUNDING COMPLETED. WILL CONTINUE TO MONITOR.
[2018-03-15 20:00] VITALS: BP 121/71
--- NOTE | 2018-03-15 21:31 | NUR ---
INITAL ASSESMENT COMPLETED AT 1999. PT HAS ONE TO ONR SITTER AT BEDSIDE TO REORIENT AND REDIRECT PT. PT CONUSED AND IMPULSIVE ATTEMPTING TO REMOVE PEG TUBE AT TIMES. PT ALSO ATTEMPTIMG TO REMOVE TRACHEOSTOMY ONCE SINCE SHIFT CHANGE. TECH AT BEDSIDE PREVENTING PT FROM REMOVING THOSE ITEMS AND PREVENTING PT FROM EXITING BED WITHOUT ASSISTANCE. PT GIVEN PRN HALDOL WITH HS MEDS. PT ALSO GIVEN PRN TORADOL FOR REPORT OF PAIN ALL OVER. PT STILL RESTLESS AND IMPULSIVE. PT PLEASANT AND COOPERATIVE AT THIS TIME FOLLOWING COMMANDS AND REDIRECTING. PT VERY FORGETFUL.
[2018-03-16] VITALS: BP 98/66
[2018-03-16 04:15] VITALS: BP 91/51
--- NOTE | 2018-03-16 04:21 | NUR ---
AT 0400 PT ATTEMPTING TO PULL OUT TRACH TUBE. TECK CALLED FOR HELP. TRACH SHEILD PUT BACK INPLACE, TRACH TIES AND COLLAR ADJUSTED.
[2018-03-16 04:23] LABS: ABSOLUTE LYMPHOCYTES 1.3 thou/uL (0.8-5.3); ABSOLUTE MONOCYTES 0.6 thou/uL (0.0-1.2); ABSOLUTE NEUTROPHILS 3.3 thou/uL (1.6-8.1); BASOPHILS 0.4 %; EOSINOPHILS 0.9 %; HEMATOCRIT 27.7 % (42.0-52.0); HEMOGLOBIN 9.2 gm/dL (14.0-18.0); LYMPHOCYTES 24.5 %; MCH 29.3 pg (26.0-34.0); MCHC 33.3 g/dL (28.0-37.0); MONOCYTES 11.8 %; MPV 7.9 fl. (7.2-11.1); NUCLEATED RBCS 0 /100WBC; PLATELET COUNT* 314 thou/uL (150-400); POLYS 62.4 %; RBC 3.15 mil/uL (4.50-6.00); RDW-CV 16.5 % (10.5-14.5); WBC 5.3 thou/uL (4.0-11.0)
[2018-03-16 04:34] LABS: CALCIUM 8.2 mg/dL (8.5-10.1); CREATININE 0.6 mg/dL (0.6-1.3)
--- NOTE | 2018-03-16 04:41 | NUR ---
PT RESTLESS AND IMPULSIVE SINCE 344. CONTINUOUS ATTEMPTS TO REMOVE TRACHEOSTOMY. PT DEANDING TO EAT FOOD AND HAVE WATER TO DRINK. ATTEMPTED TP EDUCATE PT REGARDING ASPERATION THAT OCCURED A COUPLE DAYS AGO. ATTEMPTING TO CONSOLE AND REORIENT PT.
--- NOTE | 2018-03-16 06:20 | NUR ---
PT NOT PROGRESSING TOWARD GOALS. PT IMPULSIVE AND RESTLESS, ATTEMPTING TO REMOVE TRACH AND PULL OUT FEEDING TUBE. PT WILL REDIRECT THEN RETURN TO PRIOR BEHAVIOR. PT DOES NOT REMEMBER INSTRUCTIONS. PT HAS ONE TO ONE SITTER AT BEDSIDE TO PREVENT PATIENT FROM PULLING OUT PEG TUBE OR FALLING.
[2018-03-16 08:00] VITALS: BP 109/63
--- NOTE | 2018-03-16 16:03 | NUR ---
PT RESTING IN BED THROUGHOUT SHIFT. NOT ATTEMPTING TO PULL AT TRACH OR PEG. PT EDUCATED ON TRACH AND PEG. PT AMBULATING IN HALLS WITH STEADY GAIT. SITTER AT BS TO REMIND PT NOT TO PULL AT LINES. PT TOLERATING PO WELL. PLAN FOR REHAB EVAL IN AM
[2018-03-16 16:45] VITALS: BP 112/70
[2018-03-16 20:08] VITALS: BP 137/79
--- NOTE | 2018-03-17 05:50 | NUR ---
RECEIVED REPORT AND ASSUMED CARE AT 1900. VSS. PT REPORTED PAIN, PRN MEDICATION ADMIN PER ORDERS. ASSESSMENT COMPLETED CHARTED. DISCUSSED PLAN OF CARE WITH PT, VERBALIZED UNDERSTANDING. PT UP WITH ASSIST. BED LOCKED IN LOWEST POSITION, CALL LIGHT WITHIN REACH. BED ALARM ON. PT ON CONTINUOUS FEEDING PER PEG TUBE. FREE WATER FLUSHES ADMIN WITH MEDICATION PASSES. AT 2105 = 180ML AT 0041= 240ML. HOURLY ROUNDING COMPLETED AND ALL NEEDS MET. POSITION CHANGED EVERY TWO HOURS AND HEELS OFF LOADED. NURSING WILL CONTINUE TO MONITOR
[2018-03-17 08:41] VITALS: BP 126/62
--- NOTE | 2018-03-17 13:21 | NUR ---
PAGED DR. ZAVALA TO INFORM HER OF PSYCH CONSULT RESULTS AND RECOMMENDATIONS.
--- NOTE | 2018-03-17 15:28 | NUR ---
CONTINUING TO FOLLOW PATIENT ALONG WITH DR. PAN. PT STILL WITH CONFUSION. HAS 1:1 SITTER NOW 2TO PULLING OUT TRACH AND ONCE REPLACED CONTINUING TO TRY TO PULL OUT AND PULL OUT LINES AND FEEDING TUBE. TELE PSYCH EVAL PENDING FOR TODAY. WORKING WITH THERAPIES. WILL CONTINUE TO FOLLOW.
[2018-03-17 15:56] VITALS: BP 131/73
--- NOTE | 2018-03-17 17:05 | NUR ---
PATIENT REMAINS ALERT AND ORIENTED X2-3. BACK PAIN CONTROLLED WITH TORADOL X1. FEEDINGS CHANGED TO GLUCERNA THIS AM. PATIENT IS TO HAVE BOLUS FEEDINGS QID FOR A TOTAL OF 9 BOXES WITH 70ML H2O FLUSHES TO FOLLOW. UP WITH STANDBY ASSIST. REPOSITIONED EVERY 2 HOURS. AMBULATED WITH PT. INNER TRACH CANNULA CHANGE BY RT TODAY. COCCYX WOUND REDRESSED THIS AM. VOIDING YELLOW URINE PER URINAL. VSS. TELEPSYCH CONSULT TODAY. IV SALINE LOCKED. BED ALARM IN USE. CALL LIGHT WITHIN REACH. WILL CONTINUE TO MONITOR.
[2018-03-17 20:45] VITALS: BP 183/95
--- NOTE | 2018-03-18 05:14 | NUR ---
PATIENT HAS REMAINED ALERT AND ORIENTED X 3-4. REMAINS IMPULSIVE AT TIMES AND DID BECOME UPSET ONCE IN THE NIGHT WHEN HE FIRST AWOKE, NEEDING TO VOID AND 3 STAFF RAN INTO THE ROOM AFTER HE TRIGGERED THE BED ALARM. HE WAS SOMEWHAT AGRESSIVE WITH HIS PLAN TO GET UP BY HIMSELF AND DIDN'T WANT ANYONE HELPING HIM. SHOOK HIS FIST AT ONE NURSE. AMBULATES WITH CGA, GAIT BELT AND WALKER. ENDURANCE INCREASING. GAIT STEADY. ALSO, RESPIRATORY REMOVED SPEAKING VALVE FOR THE NIGHT, PUT IT IN IT'S CONTAINER ON THE BEDSIDE TABLE THE HUMIDIFIED TRACH MASK WAS BEING SET UP WHEN PATIENT GRABBED THE CONTAINER OFF OF THE TABLE AND POPPED THE SPEAKING VALVE INTO HIS MOUTH. IT TOOK MUCH CONVINCING FOR HIM TO GIVE IT UP! HAS ASKED MULTIPLE TIMES TO EAT. NPO STATUS REINFORCED. BOLUS TF AT MIDNIGHT. MEDICATED FOR PAIN X 1. NO FURTHER ISSUES OVERNIGHT. ONLY SLEPT WELL FROM 9PM TO MIDNIGHT. HAS BEEN AWAKE THE REMAINDER OF THE SHIFT. CONTINUE TO MONITOR.
[2018-03-18 08:47] VITALS: BP 130/65
--- NOTE | 2018-03-18 12:00 | NUR ---
HERE. CM SPOKE WITH PT.AND AND UPDATED THEM ON PLAN OF CARE. VIDEO SWALLOW PLANNED FOR TODAY. POSSIBLE REHAB IN NEXT SEVERAL DAYS. DISCUSSED DPOA FOR HEALTH CARE DECISIONS WITH PT.AND . HE SAID HE WOULD WANT HIS TO MAKE HEALTH CARE DECISIONS FOR HIM IF HE COULD NOT . HE WANTED TO READ OVER DOCUMENT BEFORE SIGNING. SAID SHE WOULD HELP HIM. WILL CHECK BACK LATER TODAY TO SEE IF READY FOR NOTARY.
[2018-03-18 16:00] VITALS: BP 144/58
--- NOTE | 2018-03-18 17:13 | NUR ---
PT REMAINED ALERT AND FORGETFUL. TUBE FEEDINGS COMPLETED. SWALLOW STUDY COMPLETED, NO CHANGES. PAIN MEDS GIVEN ORDERED. FALL RISK PRECAUTIONS IN PLACE. HOURLY ROUNDING COMPLETED. WILL CONTINUE TO MONITOR.
[2018-03-18 20:30] VITALS: BP 136/67
--- NOTE | 2018-03-19 04:44 | NUR ---
PATIENT HAS REMAINED ALERT AND ORIENTED X 3-4 TONIGHT. RESTING VERY WELL ON HOURLY ROUNDS. HAS USED BOTH URINAL INDEPENDENTLY AND AMBULATED TO BR WITH CGA. DOES NOT USE CALL LIGHT BUT CONTINUES TO SET OFF BED ALARM WHEN NEEDS BR. OCCASSIONAL LOOSE COUGH. NO SUCTIONING REQUIRED. GOOD COUGH TO MOVE ANY SECRETIONS. EXTRA BOX GLUCERNA AT HS AT REQUEST AND Q6H FEEDINGS TOLERATED WELL WITHOUT NAUSEA. NO RESIDUALS. REMAINS ON SPECIALTY MATTRESS FOR WOUND CARE. DRESSING TO COCCYX INTACT. TURNING Q2H PATIENT ALLOWS. VITAL SIGNS STABLE. CONTINUE TO MONITOR.
[2018-03-19 08:35] VITALS: BP 122/66
[2018-03-19] MEDS ORDERED: DULCOLAX5 MG PO (09:48)
[2018-03-19] MEDS ORDERED: COREG6.25 MG PERTUBE (09:48)
[2018-03-19] MEDS ORDERED: SEROQUEL 25 MG25 M1 PERTUBE (09:48)
[2018-03-19] MEDS ORDERED: PAIN RELIEVER500 MG PO (09:48)
[2018-03-19] MEDS ORDERED: MILK OF MA2400 MG/10 PO (09:48)
[2018-03-19] MEDS ORDERED: MELATONIN5 M1 PO (09:48)
[2018-03-19] MEDS ORDERED: ONDANSETRON HCL4 M2 PO (09:48)
[2018-03-19 12:10] VITALS: BP 116/72
--- NOTE | 2018-03-19 13:17 | NUR ---
WOUND CARE NOTE: REASSESSMENT OF SACROCOCCYGEAL WOUND. REMAINS AN UNSTAGEABLE PRESSURE ULCER 95% OF THE WOUND BED IS COVERED WITH YELLOW, MOIST, ADHERENT SLOUGH TISSUE. NEW EPITHELIUM TO LYDIA-WOUND. WOUND MEASURES 2X2.7X0.4. CLEANSED WOUND WITH WOUND CLEANSER, PATTED DRY. APPLIED AQUACEL AG AND SECURED WITH EXUDERM. PATIENT TOLERATED DRESSING CHANGE WELL. ABLE TO EDUCATE PATIENT TO STAY OFF HIS WOUND TO PROMOTE HEALING, COMMUNICATED UNDERSTANDING. RECOMMEND REINFORCING THIS WITH THE PATIENT AND CONTINUING WITH CURRENT DRESSING CHANGE ORDERS.
[2018-03-19 15:43] VITALS: BP 135/77
[2018-03-19 20:00] VITALS: BP 132/74
--- NOTE | 2018-03-20 06:09 | NUR ---
Oriented x 2 but very forgetful. At start of shift he was setting off the bed alarm trying to get out of bed. He did this at least 4 times. Then he was almost about to get of bed,somehow his pegtube was open and tube feeding had leaked on the bed and on him. He did get up and we did clean him up and clean the bed up. He kept saying he wanted his nightime medicine. I explained about 4 times more that I had not seen any of my patients and I would get his meds as soon as I had checked in with my other patients but he wouldn't stop moving in a way that the bedalarm was activated. So I did get his meds to him immediately but he continued to set off the alarm about 2 or 3 more times asking for pain meds and night time meds after they were given. He did sleep for a good while. He's been awake since around 4 am and has set off his bed alarm,several times. I gave him pain meds and he still asked 3 more times for pain meds. Trach care done and inner canula changed and gauze dressing. Blood glucose checked and 2 glucernas given through his pegtube. He is awake in the bed right now with the TV very loud.
[2018-03-20 08:00] VITALS: BP 104/63
--- NOTE | 2018-03-20 13:58 | NUR ---
PT.MUCH MORE APPROPRIATE TODAY. PUTS CALL LIGHT ON FREQENTLY BUT HAS LEGITAMATE NEED OR CONCERN WHEN STAFF ENTERS ROOM. CALL TO RIMMA/BRANDON. HAD TO LEAVE VM ON WHETHER SHE FELT PT.QUALIFIED FOR MEDICAID AND IF ANYTHING PAPERWORK HAS BEEN STARTED. AWAITING RETURN CALL.
[2018-03-20 16:05] VITALS: BP 106/63
--- NOTE | 2018-03-20 18:46 | NUR ---
PT ALERT AND ORIENTED. CONFUSED AT TIMES. IMPULSIVE AND REQUIRES REDIRECTION AND CUEING. PT UP WITH THERAPY AND STAFF TO AMBULATE IN HALLWAY DURING SHIFT. IV PATENT. RECEIVED TYLENOL FOR GENERALIZED PAIN. NPO. BED AND CHAIR ALARM IN USE. PEG TUBE PATENT. RECEIVED TUBE FEEDING X 2 DURING DAY OF GLYCERNA. HOURLY ROUNDS MAINTAINED. DUODERM IN PLACE ON BUTTOCKS. PT WILL USE CALL LIGHT FOR ASSISTANCE. CALL LIGHT WITHIN REACH.
[2018-03-20 20:30] VITALS: BP 134/77
--- NOTE | 2018-03-21 04:30 | NUR ---
PATIENT HAS BEEN RESTLESS DURING THE NIGHT. VSS ON RA. MEDICATIONS GIVEN ORDERED AND CHARTED. PEG TUBE IN PLACE AND TUBE FEEDINGS ADMINISTERED WELL WATER FLUSHES. PATIENT IS IMPULSIVE, FORGETFUL AND CONFUSED AND TRIES GETTING UP WITHOUT USING CALL LIGHT AT TIMES. TRACH IS MIDLINE AND IN PLACE WITH HUMIDIFIED AIR. PATIENTS SPEAKING VALVE REMOVED DURING THE NIGHT. PATIENT IS UP WITH ASSIST X 1 TO THE BATHROOM AND IS UNSTEADY AT TIMES. IV IN LEFT AC-SL. PATIENT INSTRUCTED TO USE CALL LIGHT WHEN NEEDING ASSISTANCE. HOURLY ROUNDS MADE. WILL CONTINUE WITH PLAN OF CARE AND NURSING TO MONITOR.
[2018-03-21 09:53] VITALS: BP 127/73
--- NOTE | 2018-03-21 14:24 | NUR ---
I REVIEWED NORRIS COATES ASSESSMENT AND AGREE.
--- NOTE | 2018-03-21 16:51 | NUR ---
JOVANY/REHAB LIASON SAID INSURANCE DENIED ACUTE INPT.REHAB. WE HAVE BY NOON ON FRIDAY 03/24 TO CALL IN TO SET UP A PEER TO PEER REVIEW TO TRY TO OVERTURN DENIAL. JOSSE WILL DISCUSS WITH HOSPITALIST ON SATURDAY AM. JOVANY WILL SET UP P-P.
[2018-03-21 17:07] VITALS: BP 117/70
--- NOTE | 2018-03-21 17:21 | NUR ---
PT REMAINED ALERT BUT FORGETFUL. PT BECAME AGITATED WHEN WAS VISITING. PT'S REQUESTED WE GET ANXIETY AND PAIN MEDS ORDERED. DOCTOR NOTIFIED. PT'S WOULD ALSO LIKE PT'S HEARING CHECKED, SPEECH THERAPY NOTIFIED AND STATED THEY WERE GOING TO LOOK INTO IT. PT STAND BY ASSIST TO BATHROOM. TUBE FEEDINGS AND PAIN MEDS GIVEN ORDERED. NEW IV STARTED IN LT FOREARM SALINE LOCKED. IRON SUCROSE ORDERED FOR 2 DOSES, FIRST DOSE GIVEN TODAY. FALL RISK PRECAUTIONS IN PLACE. HOURLY ROUNDING COMPLETED. WILL CONTINUE TO MONITOR.
[2018-03-21 20:10] VITALS: BP 144/76
--- NOTE | 2018-03-22 03:30 | NUR ---
ASSESSMENT: PT REMAIN ALERT AND ORIENT TIMES THREE. PRN PAIN MEDICATIONS GIVEN FOR GENERALIZED PAIN. TRACH INTACT, PASSEY BRITTA VALVE USED. PT REFUSED TO ALLOW RT TO REMOVE VALVE WHILE SLEEPING. VSS, AFEBRILE. PEG TUBE INTACT AND PATENT. GLUCERNIA FEEDINGS WERE TOLERATED WELL. NPO. PT SETS OFF BED ALARM PURPOSEFULLY, DID COOPERATED WITH USING CALL BUTTON ONCE THIS RN EXPLAINED THE IMPORTANCE OF USING BUTTON AND NOT SETTING OFF ALARM. SLOW PROGRESS TOWARDS DC GOALS. WILL CONTINUE TO MONITOR.
--- NOTE | 2018-03-22 03:34 | NUR ---
ASSESSMENT: PT REMAIN ALERT AND ORIENT TIMES FOUR. UP AD GIOVANNY TO BR. ABD NOTED WITH 5 SITES COVERED WITH GAUZE AND OPSITE. PRN PAIN MEDICATIONS GIVEN WITH GOOD RELIEF. PT WANTING TO GO HOME TODAY. DENIES NAUSEA, BOWEL SOUNDS HYPOACTIVE. ENCOURAGED TO WALK MORE TO DAY ONCE PAIN IS UNDER CONTROL. CAPNO ON. NO FURTHER COMPLAINTS. GOOD PROGRESS TOWARDS DC GOALS. WILL CONTINUE TO MONITOR.
[2018-03-22 04:24] LABS: ABSOLUTE LYMPHOCYTES 0.9 thou/uL (0.8-5.3); ABSOLUTE MONOCYTES 0.4 thou/uL (0.0-1.2); ABSOLUTE NEUTROPHILS 3.9 thou/uL (1.6-8.1); BASOPHILS 0.3 %; EOSINOPHILS 0.6 %; HEMATOCRIT 26.1 % (42.0-52.0); HEMOGLOBIN 8.7 gm/dL (14.0-18.0); LYMPHOCYTES 17.8 %; MCH 29.5 pg (26.0-34.0); MCHC 33.3 g/dL (28.0-37.0); MCV 88.5 fL (80.0-100.0); MONOCYTES 8.5 %; MPV 8.5 fl. (7.2-11.1); NUCLEATED RBCS 0 /100WBC; PLATELET COUNT* 210 thou/uL (150-400); POLYS 72.8 %; RBC 2.95 mil/uL (4.50-6.00); WBC 5.3 thou/uL (4.0-11.0)
[2018-03-22 04:48] LABS: ALBUMIN 2.4 g/dL (3.4-5.0); CALCIUM 8.2 mg/dL (8.5-10.1); CREATININE 0.6 mg/dL (0.6-1.3); TOTAL BILIRUBIN 0.3 mg/dL (<0.1-1.0); TOTAL PROTEIN 5.4 g/dL (6.4-8.2)
[2018-03-22 07:30] VITALS: BP 125/61
[2018-03-22 16:32] VITALS: BP 134/83
--- NOTE | 2018-03-22 18:34 | NUR ---
PATIENT REMAINED ALERT AND ORIENTED X'S 4. VITAL SIGNS AND SPO2 STABLE. IV CLEAN, FLUSHING FLUIDS. PATIENT DENIED PAIN THROUGHOUT SHIFT. FEED PATIENT THROUGH PEG TUBE WITHOUT ISSUE. HELD SLIDING SCALE. PATIENT WALKED HALLS, STEADY GAIT. VOIDED AND PASSED BM WITHOUT ISSUE. TRACH INTACT. PATIENT REFUSED TO COMPLY WITH FALL RISK AGREEMENT. HE CONSISTANTLY GOT UP WITHOUT CALLING FOR HELP. BED ALARM AND CHAIR ALARM ALERTED NURSING STAFF. MULTIPLE CONVERSATIONS HAD WITH PATIENT ABOUT FALL RISKS. HE DOES NOT CARE TO COMPLY. NURSING STAFF WILL CONTINUE TO DO IT'S BEST TO KEEP PATIENT SAFE. COMPLETED HOURLY ROUNDING. CALL LIGHT WITHIN REACH. WILL CONTINUE TO MONITOR.
[2018-03-22 21:00] VITALS: BP 147/73
--- NOTE | 2018-03-23 04:30 | NUR ---
PATIENT ALERT AND ORIENTED X 3-4, FORGETFUL AND IMPULSIVE. STRENGTH AND ENDURANCE IMPROVING. STEADY GAIT TO BR WITH WALKER. UP LATE INTO THE NIGHT. STATED WORRYING ABOUT DISCHARGE AND WHAT HIS HOME MEDS ARE. FINALLY FELL ASLEEP AROUND 0400. HAS NOT REQUIRED ANY SUCTIONING. VITAL SIGNS STABLE. SPECIALTY BED FOR COCCYX WOUND. ENCOURAGING TURNS Q2H. IS ABLE TO TURN SELF. CONTINUE TO MONITOR.
[2018-03-23 08:00] VITALS: BP 135/76
[2018-03-23 18:00] VITALS: BP 128/71
--- NOTE | 2018-03-23 18:59 | NUR ---
PT ALERT AND ORIENTED X 3-4. REPETITION QUESTIONS DURING DAY. IV PATENT. NO COMPLAINT OF PAIN DURING DAY. NO FACIAL GRIMACING. DRESSING CHANGE TO COCCYX AREA. PICTURE TAKEN. TRACH CHANGED OUT AND SITE CLEANSED. PEG TUBE PATENT DURING DAY. RECEIVED TUBE FEEDING OF 16 OZ OF GLUCERNA X 2. UP WITH SBA X 1. HOURLY ROUNDS MAINTAINED. PT WILL USE CALL LIGHT FOR ASSISTANCE.
[2018-03-23 19:20] VITALS: BP 151/77
--- NOTE | 2018-03-24 05:21 | NUR ---
PATIENT CONTINUES ALERT AND ORIENTED X 3-4 BUT FORGETFUL. STABLE RESPIRATORY STATUS WITH TRACH TO HUMIDITY OVERNIGHT. TUBE FEEDINGS PROVIDED ORDERED WITH WATER FLUSHES. SLEPT AT INTERVALS. USED CALL LIGHT AT TIMES FOR NEEDS. AT OTHER TIMES SET OFF BED ALARM. UP SBA WITH WALKER AND CUEING FOR SAFETY. VITAL SIGNS STABLE. CONTINUE TO MONITOR.
[2018-03-24 07:45] VITALS: BP 128/76
--- NOTE | 2018-03-24 15:34 | NUR ---
DID PEER-PEER WITH [employer]AD AT [employer] LEAD AUTHORIZED PT.TO GO TO ACUTE INPT.REHAB. CM NOTIFIED PT. HE WAS VERY HAPPY AND KEPT THANKING CM. HE SAID THE NEXT STEP TO GOING HOME! JOSSE ALSO NOTIFIED PT.S . SHE SAID SHE WOULD BE HAPPY TO COME IN FOR FAMILY TRAINING AT SOME POINT. JOVANY SAID SHE WOULD NEED TO GET AUTH # FROM [employer]. WHICH SHOULDN'T TAKE LONG . THEY CAN THEN BRING HIM UPSTAIRS TO REHAB.
[2018-03-24] MEDS ORDERED: TRAZODONE HCL100 MG PO (15:53)
[2018-03-24] MEDS ORDERED: KENWOOD THERAP240 ML PERTUBE (15:53)
[2018-03-24] MEDS ORDERED: IBUPROFEN 400400 M2 PO (15:53)
[2018-03-24 16:10] VITALS: BP 135/72
[2018-03-24 16:26] VITALS: BP 135/72
== END 2018-03-24 17:35 | DRG 4 ==
LOC: M.ERS 17:44 → M.ORTHSURG 20:55 → M.TBA-ER 20:55 → M.ICU 20:55 → M.2W 02-11 07:57 → M.ICU 02-12 16:29 → M.2W 03-07 23:05 → M.ORTHSURG 03-11 01:30
PROVIDERS: Family Medicine; Internal Medicine; Internal Medicine Critical Care Medicine; Internal Medicine Gastroenterology; Internal Medicine Pulmonary Disease; Nurse Practitioner Family; Personal Emergency Response Attendant; Specialist; ADMIT Internal Medicine
DX: A41.9 Sepsis, unspecified organism (principal); I63.9 Cerebral infarction, unspecified; I21.4 Non-ST elevation (NSTEMI) myocardial infarction; I46.9 Cardiac arrest, cause unspecified; K72.00 Acute and subacute hepatic failure without coma; J15.6 Pneumonia due to other Gram-negative bacteria; J69.0 Pneumonitis due to inhalation of food and vomit; J96.20 Acute and chronic respiratory failure, unspecified whether with hypoxia or hypercapnia; G92 Toxic encephalopathy; M62.82 Rhabdomyolysis; I42.9 Cardiomyopathy, unspecified; L03.317 Cellulitis of buttock; J44.0 Chronic obstructive pulmonary disease with (acute) lower respiratory infection; L03.115 Cellulitis of right lower limb; F05 Delirium due to known physiological condition; J98.11 Atelectasis; F13.230 Sedative, hypnotic or anxiolytic dependence with withdrawal, uncomplicated; L03.315 Cellulitis of perineum; L89.311 Pressure ulcer of right buttock, stage 1; B19.20 Unspecified viral hepatitis C without hepatic coma; E11.9 Type 2 diabetes mellitus without complications; X58.XXXA Exposure to other specified factors, initial encounter; D50.9 Iron deficiency anemia, unspecified; F41.9 Anxiety disorder, unspecified; E78.5 Hyperlipidemia, unspecified; F03.90 Unspecified dementia, unspecified severity, without behavioral disturbance, psychotic disturbance, mood disturbance, and anxiety; S30.0XXA Contusion of lower back and pelvis, initial encounter; I10 Essential (primary) hypertension; F17.210 Nicotine dependence, cigarettes, uncomplicated; Z79.84 Long term (current) use of oral hypoglycemic drugs; Z79.899 Other long term (current) drug therapy; Y93.89 Activity, other specified; Y92.89 Other specified places as the place of occurrence of the external cause; Y99.8 Other external cause status

== ENCOUNTER 2018-03-24 16:28 | Inpatient (IN) | payer OTHER ==
[~2018-03-24] VITALS: Ht 172.7 cm; Wt 53.3 kg
--- NOTE | ~2018-03-24 | PLAN ---
[address] [address] REHAB UNIT PLAN OF CARE Name: HIRALUANA ABEBE Room: [address] [place] .R.#: [id number] Admission: 03/24/18 Attend Phys: Estefany Card, Discharge: Date of : 48 Report #: [id number] THIS REPORT FOR: //name// CC: Estefany Card DATE OF SERVICE: 03/25/2018 This is a 67-year-old male known from previous consultation admitted to inpatient rehabilitation to facilitate safe discharge home status post acute hospitalization and prolonged hospitalization for acute on chronic respiratory failure requiring tracheostomy, protein calorie malnutrition and failed video swallow requiring PEG tube placement and multifactorial encephalopathy. He has been improving. He has been appropriate participating with physical and occupational therapy as well as speech and language pathology. Previous level of function was independent to modified independent with activities of daily living. Current level of function is minimum to moderate assistance of 1-2 depending on therapy, activity and time of day. Estimated length of stay is 7-10 days with discharge disposition to home setting where he has supportive ex- and accessible house. MEDICAL PROGNOSIS: Fair. REHABILITATION PROGNOSIS: Fair. Physical therapy will see the patient 60-90 minutes per day, 5 days per week, working on upper and lower body strength, balance, coordination, navigation. Occupational therapy will work with the patient 60-90 minutes per day, 5 days per week, working on upper and lower body strength, balance, coordination, navigation, bathing, dressing, toileting. Speech and language pathology will work with the patient 30-90 minutes per day, 5 days per week, working on swallow, aphasia, dysphagia, video swallows as needed, e-stim as needed. This is an overall plan of care, may change from time to time. We will team weekly and make changes to plan of care as needed. By: [id number] Card DO /nt
--- NOTE | ~2018-03-24 | H ---
[address] [address] HISTORY AND PHYSICAL Name: LUANA INIGUEZ Room: [address] IN M.R.#: [id number] Admission: 03/24/18 Attend Phys: Estefany Card DO Discharge: Date of : 48 Report #: [id number] THIS REPORT FOR: //name// CC: Estefany Card DATE OF SERVICE: 03/24/2018 HISTORY OF PRESENT ILLNESS: This is a 67-year-old male, known from previous consultation, was admitted to inpatient rehabilitation to facilitate safe discharge home, status post prolonged acute hospitalization of 49 days for acute respiratory failure, acute on chronic status post tracheostomy. He is currently off the vent. Trach was placed on 02/21/2018, has now been downsized as a size 8 at this time, also with a diagnosis of encephalopathy, multifactorial including metabolic toxic, overall improvement has been noted. He does have psychosis, he has seen Psychiatry. He does have a PEG tube with protein-calorie malnutrition due to aspirate. He also has aspiration pneumonia; history of rhabdomyolysis, resolved; NSTEMI with medical management. He has been followed by HIMS, Cardiology and Pulmonology. He does have uncontrolled diabetes type 2 and history of dementia. No significant changes since the preadmission screening. Previous level of function prior to this hospitalization several weeks ago, was modified independent with activities of daily living. Current level of function is minimum to moderate assistance of 1-2 depending on therapy, activity and time of day. Estimated length of stay is 7-10 days with discharge disposition to the home setting, hopefully with cleared video swallow, decreased use of the PEG tube and downsizing and/or decannulation of the trach. ALLERGIES: No known drug allergies. SOCIAL HISTORY AND FAMILY HISTORY: Unchanged from consultation. MEDICATIONS: Reviewed and reconciled by myself and are available in the MAR. PAST MEDICAL HISTORY: Unchanged from previous consultation. REVIEW OF SYSTEMS: A 14-point review of systems is done today, is negative except as mentioned in HPI, specifically no fever, chest pain, shortness of breath, abdominal pain or distention, change in bowel or change in bladder. PHYSICAL EXAMINATION: GENERAL: Alert, oriented, in no apparent distress. VITAL SIGNS: Reviewed and are stable. HEENT: Head atraumatic, normocephalic. Pupils equal, round, reactive. ABDOMEN: Soft, nontender, nondistended. NEUROLOGIC: Cranial nerves 2-12 are grossly intact. No focal neuro deficits, [place] [address] HISTORY AND PHYSICAL Name: LUANA INIGUEZ Room: [address] IN [facility]#: [id number] Admission: 03/24/18 Attend Phys: Estefany Card DO Discharge: Date of : 48 Report #: [id number] 5/5 strength in bilateral upper and lower extremities. ASSESSMENT: 1. Prolonged acute medical hospitalization for acute on chronic respiratory failure requiring tracheostomy. 2. Multiple medical comorbidities including rhabdomyolysis, pneumonia, sepsis, cellulitis and acute kidney injury. 3. Multifactorial encephalopathy, improving. PLAN: 1. Admission to inpatient rehabilitation to facilitate safe discharge home. 2. PT, OT, case management, nursing, speech, and HIMS to make evaluations and recommendations. 3. Plan of care is pending and we will team him weekly. 4. Goal is to decannulate him. Hopefully, Pulmonary will follow as needed. 5. Video swallow with hope of advancing diet as tolerated and decreasing use of the PEG tube. By: [id number] Card DO /nt
--- NOTE | ~2018-03-24 | D ---
[facility] [address] [place] [address] DISCHARGE SUMMARY Name: HIRALUANA ABEBE Room: [facility] ADM IN M.R.#: [id number] Admission: 03/24/18 Attend Phys: Estefany Card, Discharge: Date of : 48 Report #: [id number] THIS REPORT FOR: //name// CC: Estefany Card DISCHARGE DISPOSITION: Home. DISCHARGE DIAGNOSES: Hqqaj-nv-tylfolt respiratory failure, encephalopathy. Discharge with home health PT, OT, nursing and speech pathology. Wound care to continue with current plan for unstageable sacral/coccyx wound. Follow with primary care physician within 1 week, Pulmonology in 2-4 weeks, surgeon for PEG tube evaluation in 6 weeks and wound care outpatient p.r.n. after home health has been completed. Notifications for physician were given. DIET: He did have a video swallow on 04/09/2018 prior to discharge home, was upgraded to regular diet with nectar-thick liquids, absolutely no thin liquids to prevent aspiration due to his awmul-sh-nqeymcz respiratory failure and recent tracheostomy due to ventilation. LIMITATIONS: 10/09 supervision for safety, fall precautions. Medications were reviewed and reconciled by myself and are available in the MAR. Of note, carvedilol was decreased to 3.125 per tube b.i.d. Otherwise, everything has been the same on medication reconciliation. As of discharge date, we will continue with per tube medications until further recommended by primary care physician or surgeon. DISCHARGE PHYSICAL EXAMINATION: GENERAL: Alert, oriented, in no apparent distress. VITAL SIGNS: Reviewed and are stable. HEENT: Head atraumatic, normocephalic. Pupils equal, round, reactive. ABDOMEN: Soft, nontender, nondistended. NEUROLOGIC: Cranial nerves 2-12 are grossly intact with no focal neuro deficits, 5/5 strength in bilateral upper and lower extremities. WOUND: Of note, stoma on the tracheostomy has been well healed and wound on the coccyx is unstageable with a 75% slough, 25% granulation. By: [id number] Card DO /nt
[~2018-03-24 16:28] MED LIST changes: +ACCUNEB SO1.25 MG/1 INH; +ALBUTEROL S2 MG/5 ML PO; +ARICEPT 5 MG TAB5 MG PO; +ATIVAN0.5 MG PO; +COREG6.25 MG PERTUBE; +DULCOLAX5 MG PO; +ENOXAPARIN40 MG/0.1 SUBQ; +FLUSH FLUSH; +GEODON20 MG PO; +HUMALOG100 UNIT/1 SUBQ; +HYDROCODON-ACE1 EAC7 PER TUBE; +IBUPROFEN 400400 M2 PO; +KENWOOD THERAP240 ML PERTUBE; +LISINOPRIL5 MG PO; +LORAZEPAM 22 MG/1 ML IV; +MELATONIN5 M1 PO; +MILK OF MA2400 MG/10 PO; +ONDANSETRON HCL4 M2 PO; +PAIN RELIEVER500 MG PO; +PROTONIX40 M1 PER TUBE; +SEROQUEL 25 MG25 M1 PERTUBE; +TRAZODONE HCL100 MG PO; +VICODIN ES 7.51 EACH PO
[2018-03-24 17:30] VITALS: BP 133/73
--- NOTE | 2018-03-24 19:04 | NUR ---
ASSUMMED CAR OF PT AT 1745, PT ORIENTED TO ROOM, PT STATES HE IS HUNGRY, 2 CANS OF GLUCERNA INFUSED THRU FEEDING TUBE, NO RESIDUAL PRIOR TO FEEDING, FEEDING TUBE SITE INTACT, NO DRAINAGE, PT AMBULATED TO BATHROOM WITH SBA, PT HAS USED CALL LIGHT APPROPRIATELY THIS SHIFT, PRESSURE ULCER ON COCCYX, ASSESSMENT COMPLETE, WILL CONTINUE TO MONITOR.
[2018-03-24 19:30] VITALS: BP 129/67
[2018-03-25 04:43] LABS: CALCIUM 8.6 mg/dL (8.5-10.1); CREATININE 0.5 mg/dL (0.6-1.3); POTASSIUM 4.3 mmol/L (3.5-5.1)
[2018-03-25 04:44] LABS: HEMATOCRIT 27.9 % (42.0-52.0); HEMOGLOBIN 9.3 gm/dL (14.0-18.0); MCH 29.7 pg (26.0-34.0); MCHC 33.3 g/dL (28.0-37.0); MCV 89.1 fL (80.0-100.0); MPV 8.5 fl. (7.2-11.1); RBC 3.13 mil/uL (4.50-6.00); RDW-CV 17.5 % (10.5-14.5)
--- NOTE | 2018-03-25 05:16 | NUR ---
ASSUMED CARE AT 1920. ALERT AND ORIENTED X 2. SOME CONFUSION. KEPT ASKING FOR SOMETHING TO EAT. NEEDED REMINDING OF BEING NPO. TUBE FEEDINGS WITH 2 CANS GLUCERNA GIVEN AT HS AND 1 CAN AT MIDNIGHT. PILLS CRUSHED AND GIVEN VIA PEG TUBE. IMPULSIVE. DOES NOT ALWAYS USE CALL LIGHT DESPITE EDUCATION. SAYS THAT HAS PAIN "ALL OVER" RATED AT "10 OR MORE". IBUPROFEN GIVEN. HUMIDIFIER OVER TRACH DURING THE NIGHT. PT MIN ASSIST WITH GAIT BELT AND WALKER. UP TO BR OR USED URINAL WITH ASSISTANCE. HAS COCCYX OPEN WOUND. AREA CLEANED AND DRESSING APPLIED. WOUND PICTURE TAKEN. PT ON SPECIALTY BED. REFUSED TO STAY TURNED ON SIDES. REFUSED TO OFFLOAD HEELS. SLEPT VERY LITTLE. CALL LIGHT IN REACH AND BED ALARM ON.
[2018-03-25 07:30] VITALS: BP 107/66
--- NOTE | 2018-03-25 16:05 | NUR ---
SW met with pt to complete initial assessment, introduce self, and SW role on inpt rehab unit. Pt alert, oriented. Pt lives at home with his . Pt has other family support in his dtr Amy and a brother. Pt has a RW at home already. Pt has new trach care; SW discussed with pt that team will be providing family training and that SW will contact pt to discuss recommendations and dc planning as well. SW to continue to follow to assist with safe dc planning.
[2018-03-25 20:00] VITALS: BP 113/69
--- NOTE | 2018-03-26 05:14 | NUR ---
ASSUMED PT CARE AT 1930. PT ALERT AND ORIENTED X2, SOMETIMES CONFUSED, OTHER TIMES IMPULSIVE. PT NPO WITH TUBE FEEDINGS, 2 CAN OF GLUCERNA AT 2100 AND ONE CAN AT MIDNIGHT. ALL PILLS CRUSHED AND GIVEN THROUGH TUBE. PT UP WITHOUT CALLING OUT SEVERAL TIMES OVERNIGHT, STANDING TO VOID OR GOING TO BATHROOM TO HAVE BOWEL MOVEMENT. BED ALARM ON AND ALARMING. PT MORE COMPLIANT WITH CALLING OUT THE SHIFT PROGRESSED. UP WITH MIN ASSIST, GAIT BELT AND WALKER. PT HAS TRACH, WEARS HUMIDIFIED TRACH MASK OVERNIGHT. DRESSING TO COCCYX WOUND C/D/I. PT ON SPECIALTY BED. PT REFUSES TO STAY TURNED TO SIDE OR TO OFFLOAD HEELS. FRENETIC FIRST HALF OF SHIFT THEN ASLEEP LAST HALF OF SHIFT. CALL LIGHT AND FREQUENTLY USED ITEMS WITHIN REACH. HOURLY ROUNDING IN PROGRESS, WILL CONTINUE TO MONITOR.
[2018-03-26 07:45] VITALS: BP 102/59
--- NOTE | 2018-03-26 08:00 | NUR ---
RECEIVED REPORT FROM FLORI AND ASSUMED CARE OF PT @ 4515.PT IS A/O X4 BUT FORGETFUL AT TIMES.VSS.PT REMAINS ON TRACH MASK AT HS.TRACH SECURE AND PATENT-CANNULA CHANGED BY RT.PEG TUBE SECURE AND PATENT.PT IS CALM AND COOPERATIVE WITH C/O PAIN IN BACK AND LEFT SIDE -MEDICATIONS GIVEN.PT IS UP WITH ASSIST OF ONE TO BATHROOM WITH WALKER AND GAIT BELT.PT LEFT RESTING IN BED WITH CALL LIGHT AND FALL PRECAUTIONS IN PLACE.WILL CONTINUE TO MONITOR.
--- NOTE | 2018-03-26 09:56 | NUR ---
SW called and spoke with pt Michelle in preparation for team conference today and to introduce self, SW role on inpt rehab unit. SW discussed team's recommendation for family training and pt involvement in pt care. Pt explained that she feels pt will not ever listen to her and "do it his own way" once they get home. Pt stated that she and her fight all the time and were for a while because she feels he does not ever listen to her and he "will always promise you the jensen" but then still does things his own way. Pt said that with his swallowing and his trach care, she is concerned he will be noncompliant and that she will not know what to do either if he doesn't listen to her. SW tried to provide encouragement and discussed family training again and that services would follow. SW discussed private duty care services as well; pt said they didn't have LTC insurance or VA benefits. SW to continue to follow to assist with safe dc planning.
--- NOTE | 2018-03-26 16:01 | NUR ---
SW, Dr Card and med student met with pt to review team conference summary and plan for pt to remain on rehab unit at least another week with plan for team to reassess pt length of stay during team conference next Saturday. Team recommending extensive family training with pt nearer to pt dc especially related to TF and trach care. SW called pt and reviewed team conference summary and mentioned family training as well. Pt and pt in agreement with plan. SW to continue to follow to assist with safe dc planning.
--- NOTE | 2018-03-26 18:22 | NUR ---
NO CHANGES THIS SHIFT TO PT.TRACH SECURE AND PATENT.PEG TUBE SECURE AND PATENT.TUBE FEEDINGS COMPLETED PER ORDERS.PT C/O PAIN IN BACK AND LEFT SIDE-PAIN MANAGED WELL WITH PO MEDICATIONS.XRAY OF LEFT SIDE COMPLETED.NPO STATUS MAINTAINED PER ORDERS.PT INFORMED OF PLAN OF CARE AND COMMUNICATES UNDERSTANDING.PT AMBULATED IN HALLWAY WITH PHYSICAL THERAPY SEVERAL TIMES.HOURLY ROUNDING COMPLETED FOR PT SAFETY.CALL LIGHT AND FALL PRECAUTIONS IN PLACE.WILL CONTINUE TO MONITOR FOR DURATION OF SHIFT.
[2018-03-26 20:18] VITALS: BP 95/55
--- NOTE | 2018-03-27 05:19 | NUR ---
ASSUMED PT CARE AT 1930. PT ALERT AND ORIENTED X2, CAN BE CONFUSED AND IMPULSIVE. PT NPO WITH TUBE FEEDINGS, 2 CANS OF GLUCERNA AT 2100 AND ONE CAN AT MIDNIGHT. ALL PILLS CRUSHED AND GIVEN THROUGH TUBE. PRN PAIN MEDICATIONS FOR BACK PAIN. PT MORE COMPLIANT WITH USING CALL LIGHT THIS SHIFT. UP WITH MIN ASSIST, GAIT BELT AND WALKER. PT HAS TRACH, WEARS TRACH MASK OVERNIGHT AND SCHEDULED RT TREATMENTS. DRESSING TO COCCYX WOUND C/D/I. WOUND CARE TO SEE PT TODAY. PT ON SPECIALTY BED. PT REFUSES TO STAY TURNED TO SIDE OR TO OFFLOAD HEELS. TO SLEEP LATE BUT THEN PT SLEPT WELL, MELATONIN AT HS PER PT REQUEST. CALL LIGHT AND FREQUENTLY USED ITEMS WITHIN REACH. HOURLY ROUNDING IN PROGRESS, WILL CONTINUE TO MONITOR.
[2018-03-27 07:00] VITALS: BP 103/54
--- NOTE | 2018-03-27 10:35 | NUR ---
WOUND CARE NOTE: REASSESSMENT OF SACROCOCCYGEAL WOUND. HEALING UNSTAGEABLE PRESSURE ULCER TO SACROCOCCYGEAL REGION MEASURING 2.5X1.5X0.7. MOIST, YELLOW, SLOUGH TISSUE TO APPROXIMATELY 85% OF WOUND BED. 15% WITH PINK, MOIST, NON-GRANULAR TISSUE. LYDIA-WOUND WITH NEW EPITHELIUM. WOUND APPEARS TO BE HEALING WELL. WOULD RECOMMEND CONTINUING WITH AQUACEL AG UNDER EXUDERM Q3 DAYS. EDUCATED PATIENT ON LAYING ON SIDES TO PROMOTE HEALING, PATIENT ADMITS TO NOT DOING THAT REGULARLY, BUT IS WILLING TO DO SO. RECOMMEND WAFFLE CUSHION WHEN IN CHAIR IN CHAIR ENCOURAGE SIDE LYING POSITIONS WHEN IN BED IN BED ON SIDE BETWEEN THERAPIES TIGHT BLOOD GLUCOSE CONTROL
--- NOTE | 2018-03-27 14:04 | NUR ---
Nutrition: We cannot order Glucerna 1.2 at this time d/t supply changes. SEE RD REASSESSMENT FORM FOR DETAILS. PLEASE CHANGE TF FORMULA AND REGIMEN TO: GLUCERNA SHAKES (ANY FLAVOR) TWO CARTONS 5 TIMES PER DAY.
--- NOTE | 2018-03-27 17:58 | NUR ---
PATIENT HAS BEEN UP IN W/C MOST OF THE DAY. WALKED WITH THERAPIES ON THE UNIT WITH CONTACT GUARD ASSIST. NO DEVICE. CONT. TO ASK FOR PAIN MED, ALTERNATING WITH TYLENOL AND IBUPROFEN. REPORTS EFFECTIVE RELIEF. CONT. WITH PLAN OF CARE AT THIS TIME.
[2018-03-27 20:35] VITALS: BP 128/64
--- NOTE | 2018-03-28 05:36 | NUR ---
ASSUMED CARES AT 1920. ALERT AND ORIENTED. PLEASANT. CAN BE IMPULSIVE. NEEDS REMINDING TO USE CALL LIGHT. C/O GENERALIZED PAIN. TYLENOL GIVEN. NPO. PILLS CRUSHED AND GIVEN VIA PEG TUBE. PER MD PSYCHIATRY'S NOTE, PT TO BE GIVEN GLUCERNA SHAKES 2 CARTONS 5 TIMES A DAY. 2 CARTONS WERE GIVEN AT 2100 AND MIDNIGHT. ACCUCHECKS CHANGED TO ACHS. HUMIDIFIED AIR TO TRACH DURING THE NIGHT. DRESSING TO COCCYX INTACT. MIN ASSIST WITH GAIT BELT. USED URINAL AND NURSING EMPTIED. SLEPT VERY LITTLE. CALL LIGHT IN REACH. BED ALARM ON.
[2018-03-28 07:00] VITALS: BP 108/61
--- NOTE | 2018-03-28 15:11 | NUR ---
ASSUMED CARE AT 0730. ALERT ORIENTED PLEASANT COOPERATIVE WITH THIS STAFF NURSE. HX OF ENCEPHALOPATHY PT. IS NPO HAS PEG TUBE FOR TUBE FEEDINGS WE ARE SUBSTITUTING GLUCERNA SHAKES AT PRESENT 2 CARTONS 5 X DAY PER FINISHED GARMENT INSPECTOR RECOMMENDATION WITH 70CCS WATER FLUSHES. PEG TUBE FLUSHES WELL. TRACH IS CAPPED WITH SPEAKING VALVE PER R.T. THE R.T. CHANGED INNER CANNULA AND TRACH BIBS ALSO THIS A.M. PT. TOLERATING T.F. WELL. PARTICIPATING IN THERAPIES THIS A.M. HE BECAME BELLIGERENT PER O.T. REPORT. SPOKE WITH HIM RE THIS MATTER HE SAID HE WAS SORRY FOR BEING FRUSTRATED WITH STAFF BUT HE ISNT A KID HES A MAN. SPOKE WITH DR. PAN RE THIS ORDER OBTAINED FOR ATIVAN PRN FOR NERVES PER TUBE. A DOSE WAS GIVEN THIS AFTERNOON ALSO HAS HAD C/O RT. SHOULDER PAIN WHICH HASNT BEEN RELIEVED BY XS TYLENOL OR IBUPROFEN. COLD PACK ALSO USED X 1. PT. HAS SPECIALTY BED. DRESSING C/D/I TO COCCYX. PARTICIPATED IN THERAPIES THROUGHOUT THE DAY. BED CHAIR ALARM IN PLACE FOR PT. SAFETY.
--- NOTE | 2018-03-28 18:34 | NUR ---
PT. STATES SOME RELIEF OF RT. SHOULDER PAIN WITH LAST IBUPROFEN GIVEN. HOURLY ROUNDED COMPLETED.
[2018-03-28 19:45] VITALS: BP 93/47
[2018-03-29 01:30] VITALS: BP 110/63
--- NOTE | 2018-03-29 02:32 | NUR ---
ASSUMED CARE @ -SAT.SITS IN W/C BY DOOR.PROPELS W/C IND.SEE PAIN MANAGEMENTS @ 2005 & 138.PEG FEEDINGS W/ 2 CONTAINERS GLUCERNA SHAKES GIVEN PER PEG @ 2009 & -SAT.H20 FLUSHES 70 ML AFTER EACH FEEDING.PATIENT HOLDING FEEDING SYRINGE @ 2009.ASSISTED TO BED @ 2039.HOB UP.HEELS OFF BED @ 2049.ON BED SPECIALTY.BED ALARM PUT ON @ 2049.BP @ .HS DOSE COREG HELD.BP RE-CHECKED @ .REFUSED PRAFO BOOTS @ HS.RSP THERAPIST REMOVED SPEAKING VALVE @ 2333 & PUT BON TRACH MASK.NURSE EMPTIES URINAL @ NIGHT.CALLED @ 129.USED URINAL BUT SPILLED.GOWN & DRAW SHEET BOTH CHANGED.LYDIA CARE DONE.BP [id number] @ .PEG DRSAG APPLIED @ 149. ON HOURLY ROUNDS.SEE POSITION CHANGE CHARTING Q 2 HOURS-EVEN HOURS.
--- NOTE | 2018-03-29 05:12 | NUR ---
SLEEPING SINCE 2100 & SLEPT GOOD ALL NIGHT.USED URINAL X3 W/ URINE ACCIDENTS X 2.LYDIA CARE DONE X2.SEE 3RD PAIN MANAGEMENT @ 8953.TRACH SITE CLEANSED @ 7511. DRAIN SPONGES CHANGED & INNER CANNULA CHANGED @ 5128.
[2018-03-29 09:51] VITALS: BP 134/65
--- NOTE | 2018-03-29 10:49 | NUR ---
PATIENT UP IN W/C, PROPELLS SELF AROUND ROOM. COPIOUS AMTS OF SPUTUM FROM TRACH THIS AM. SUCTIONED TWICE. ORDERS FOR CXR, AND SPUTUM CULTURE. O2 SATS IN 90S. CONT. TO MONITOR. PATIENT PARTICIPATING IN THERAPIES. CONT. WITH PLAN OF CARE.
[2018-03-29 20:45] VITALS: BP 99/56
--- NOTE | 2018-03-30 05:17 | NUR ---
ALERT AND ORIENTED WITH PERIODS OF FORGETFULNESS. BED ALARM ON. UP WITH STAND BY ASSIST TO USE URINAL. ALTERNATING PAIN MEDICATION USED TO HELP WITH RIGHT SHOULDER PAIN. TUBE FEEDING TUBE CHECKED AND PATENT. TUBE FEEDING GIVEN WITHOUT DIFFICULTY. TRACH PATENT AND O2 SAT ON ROOM AIR 99% WHILE AWAKE. O2 APPLIED WHILE SLEEPING. DRESSING REMAINS DRY AND IN PLACE ON COCCYX. CALL LIGHT WITHIN REACH. PROGRESSING TOWARD DISCHARGE GOAL.
[2018-03-30 09:06] VITALS: BP 105/58
--- NOTE | 2018-03-30 10:13 | NUR ---
PATIENT UP IN WHEELCHAIR. TRANSFER WITH SBA. PATIENT'S SECRETION ARE MUCH LESS COMPARED TO YESTERDAY. PATIENT HAS A GOOD PRODUCTIVE COUGH AND HE CLEARS AIRWAY FROM TRACH WITH TISSUES. WILL CONT. TO MONITOR. VSS, ABFIBRILE. DENIES SXS OF SOB. WILL CONT. WITH PLAN OF CARE AT THIS TIME.
--- NOTE | 2018-03-30 15:53 | NUR ---
UP IN WHEELCHAIR SBA, IN BED NOW DRESSING TO COCCYX AREA CHANGED. WOUND WAS DRY, WITHOUT SXS OF INFECTION. PATIENT TOLERATED WELL. TUBE FEEDINGS PER ORDERS, BS WNL. PRN PAIN MEDS NEEDED. CONT. WITH PLAN OF CARE.
--- NOTE | 2018-03-30 17:14 | NUR ---
PATIENT SEEMED RESTLESS, PACING. GAVE .5 ATIVAN ORDERED. INSTRUCTED PATIENT TO GET IN BED.
[2018-03-30 19:40] VITALS: BP 119/64
--- NOTE | 2018-03-31 02:19 | NUR ---
ASSUMED CARE @ 1924-03/30-SATURDAY.AWAKE IN BED W/ HOB UP.BED ALARM PUT ON @ 1924.ON LOW AIR LOSS BED.WANTS SIDERAILS X3 UP ONLY.URINALS X2 W/IN REACH. SEE PAIN MANAGEMENTS @ 1954 & 135.HS DOSE COREG HELD.BP-119/64.OCC.PROD. COUGH W/ THICK,CLEAR PLEGHM.HEELS OFF BED @ 2340.NURSE EMPTIES URINALS @ NIGHT.RESP.THERAPIST REMOVES SPEAKING VALVE @ 230 & PUTS ON TRACH MASK FOR NIGHT USE.TWO CARTOONS GLUCERNA SHAKES GIVEN PER PEG @ 2124 & 144.FOLLOWED W/ 70 ML H20 FLUSHES.NO RESIDUAL BOTH TIMES.ON HOURLY ROUNDS.SEE POSITION CHANGE CHARTING Q 2 HOURS-EVEN HOURS.
--- NOTE | 2018-03-31 05:19 | NUR ---
REMAINED ON NPO.SLEPT LATE SINCE 2300 & SLEPT GOOD ALL NIGHT.USED URINAL X 7 DURING NIGHT.
--- NOTE | 2018-03-31 06:56 | NUR ---
AWAKE @ 0600.TRACH SITE-NO DRESSING.CLEANSED W/ H20.DRIED.LARGE AMOUNT DRY GREEN CRUSTS.DRAIN SPONGE DRESSING APPLIED @ 629.INNER CANNULA #8 CHANGED @ 634.GOT MAD 3X W/ RN.FIRST TIME @ 1999.STOOD TO USE URINAL BY SELF.BED ALARM SOUNDED.INSTRUCTED TO CALL FOR ASSIST TO STAND TO USE URINAL @ NIGHT.CLAIMS HE HAS BEEN WALKING BY SELF DURING DAYSHIFT.SECOND TIME-WHEN TURNED @ 0400. RN EXPLAINED THAT HE HAS ULCER IN COCCYX & NEEDS TO TURN.THIRD TIME @ 06- WHEN RN CLEANING TRACH SITE.NO DRESSING FOUND SO LARGE AMOUNT DRIED CRUSTS ACCUMULATED & CLAIMS RN HURT HIS TRACH SITE.
[2018-03-31 08:00] VITALS: BP 126/69
--- NOTE | 2018-03-31 14:40 | NUR ---
ASSUMED CARE AT 0730. ALERT ORIENTED PLEASANT COOPERATIVE BUT FRUSTRATED. HX OF ENCEPHALOPATHY TRACH AND PEG TUBE PT. IS NPO AND RECEIVING TUBE FEEDINGS GLUCERNA 1.2. 2 CANS QID AND H2O FLUSHES MEDS PER PEG TUBE. STATES HE IS EXPERIENCING RT. SHOULDER PAIN AND CHRONIC BACK PAIN ALSO REQUESTED NERVE MED NERVE MED AND IBUPROFEN GIVEN PER PEG TUBE AT 1300. TOLERATES TF PER PEG TUBE. DR. HEATON HERE AND REMOVED TRACH TOLERATED WELL O2 SAT WAS 100% AFTER DISCONTINUING. NO E STIM PER DR. HEATON FOR TODAY. TRANSFERS WITH SBA G BELT AND AMBULATES TO TOILET TO VOID. PT. C/O THE PRN MEDS NOT HELPING HIM AND WANTS HYDROCODONE WHICH HE TOOK FOR 15 YEARS FOR CHRONIC BACK PAIN. PARTICIPTING IN THERAPIES THROUGHOUT THE DAY. USES CALL LIGHT APPROPRIATELY FOR ASSIST. TOLERATING THE TRACH BEING DCD DRESSING CHANGED X 1. CONTINUE TO MONITOR CLOSELY.
--- NOTE | 2018-03-31 16:22 | NUR ---
Pt continues to express to multiple therapists and nurse that he does not want to continue to have to be in the hospital and continue therapies. Pt is very hopeful to return home soon. SW to continue to follow and to discuss with pt again to schedule family training prior to dc. Team meeting on Saturday.
[2018-03-31 20:00] VITALS: BP 114/69
--- NOTE | 2018-04-01 04:44 | NUR ---
ASSUMED CARE AT 1920. ALERT AND ORIENTED. PLEASANT. C/O BACK PAIN AND "PAIN ALL OVER". PAIN MEDS GIVEN CRUSHED VIA PEG TUBE. NPO. GLUCERNA 2 CANS GIVEN AT HS AND 1 CAN AT MIDNIGHT. PT FOUND TO HAVE DRIED SKIN TEAR TO RIGHT FOREARM. AREA CLEANSED AND MEPILEX APPLIED. PT USED URINAL AND RN EMPTIED. MEPILEX COVERING OLD TRACH SITE. CONTINUES TO BE NONCOMPLIANT WITH STAYING TURNED ONTO SIDES OR KEEPING HEELS OFFLOADED. NO COMPLAINTS OVERNIGHT. CALL LIGHT IN REACH. BED ALARM ON.
[2018-04-01 05:30] LABS: ABSOLUTE EOSINOPHILS 0.1 thou/uL (0.0-0.7); ABSOLUTE LYMPHOCYTES 1.3 thou/uL (0.8-5.3); ABSOLUTE MONOCYTES 0.4 thou/uL (0.0-1.2); ABSOLUTE NEUTROPHILS 2.5 thou/uL (1.6-8.1); BASOPHILS 0.3 %; HEMATOCRIT 28.8 % (42.0-52.0); HEMOGLOBIN 9.4 gm/dL (14.0-18.0); LYMPHOCYTES 29.7 %; MCH 29.5 pg (26.0-34.0); MCHC 32.6 g/dL (28.0-37.0); MCV 90.5 fL (80.0-100.0); MONOCYTES 8.9 %; MPV 8.1 fl. (7.2-11.1); NUCLEATED RBCS 0 /100WBC; PLATELET COUNT* 252 thou/uL (150-400); POLYS 58.1 %; RBC 3.18 mil/uL (4.50-6.00); RDW-CV 18.8 % (10.5-14.5); WBC 4.2 thou/uL (4.0-11.0)
[2018-04-01 05:40] LABS: CREATININE 0.6 mg/dL (0.6-1.3); POTASSIUM 4.7 mmol/L (3.5-5.1)
[2018-04-01 07:30] VITALS: BP 127/65
--- NOTE | 2018-04-01 14:11 | NUR ---
ASSUMED CARE AT 0730. ALERT ORIENTED PLEASANT COOPERATIVE. HX OF RESP FAILURE ENCEPHALOPATHY. PT. HAS BEEN TOLERATING DECANNULATION OF TRACH YESTERDAY. DRESSING CHANGED AFTER SHOWER THIS A.M. DRESSING CHANGED TO SKIN TEAR RT. ARM ALSO. PARTICIPATING IN THERAPIES. TOLERATED TUBE FEEDINGS PER PEG. NPO. MEDICATED WITH PRN IBUPROFEN AND ATIVAN AT 1200. HAD LARGE BM AND VOIDED IN BR TOILET. USING CALL LIGHT APPROPRIATELY FOR ASSIST.
[2018-04-01 20:00] VITALS: BP 114/62
--- NOTE | 2018-04-02 05:14 | NUR ---
ASSUMED CARE AT 1920. ALERT AND ORIENTED. PLEASANT. C/O BACK AND GENERALIZED PAIN. PAIN MEDS GIVEN CRUSHED VIA PEG TUBE. HAS LOOSE COUGH. PT USED URINAL AND RN EMPTIED. CONTINUES TO REFUSE TURNS. USING CALL LIGHT. SLEPT OFF AND ON. BED ALARM ON.
[2018-04-02 08:25] VITALS: BP 126/71
--- NOTE | 2018-04-02 09:32 | NUR ---
WEIGHT LOSS NOTED PER DIETITIAN. WEIGHT RETAKEN WHICH INDICATED 117.6. DIETITIAN INCREASED TUBE FEEDING BOLUS TO 2 CANS GLUCERNIA 5 TIMES A DAY FOR A TOTAL OF 10 CANS.
--- NOTE | 2018-04-02 13:27 | NUR ---
PATIENT'S SPOUSE WALKED BY NURSES STATION AND STATED "WHICH ONE OF YOU GIRLS ARE HIS NURSE?" THIS NURSE INDICATED THAT SHE WAS HER HUSBANDS NURSE. SPOUSE STATED "JUST SO YOU KNOW. WHEN HE COMES HOME WITH ME...I AM A SMOKER AND THAT IS NOT GOING TO CHANGE."
--- NOTE | 2018-04-02 13:52 | NUR ---
SW and med student Farzad met with pt to review team conference summary and plan for team to reassess pt length of stay during team conference next Sunday 04/09. Pt was disappointed with the recommendation of more time on rehab but was understanding of needing more therapies to be able to gain more strength, training, education on precautions and tube feedings and care needed for success at home at dc. Pt came to the hospital and SW explained family training needed prior to dc and since was here to listen to review and updates, SW discussed family training to begin with therapists and at least PT and ST were able to meet with pt for a little while. ST informed SW that pt said she would be back next Saturday at 10 am for more family training. SW to continue to follow to assist with safe dc planning.
--- NOTE | 2018-04-02 14:03 | NUR ---
AFTER PATIENT'S LEFT, PATIENT TRIED TO WHEEL HIMSELF ON TO ELEVATOR AFTER HER.
[2018-04-02 19:30] VITALS: BP 119/69
--- NOTE | 2018-04-03 00:26 | NUR ---
ASSUMED CARE @ 1919-.SITS IN BED W/ HOB UP 90 DEGREES WATCHING TV. TANANA-CHELY.DOES NOT WEAR HEARING AIDS.MEPILEX DRSG INTACT OLD TRACH SITE.ON BED SPECIALTY.BED ALARM PUT ON @ 1919.WANTS ONLY SIDERAILS X3 UP.HEELS OFF BED @ 1934.SEE PAIN MANAGEMENT @ 2045.TWO URINALS W/IN REACH.ON HOURLY ROUNDS.SEE POSITION CHANGE CHARTING Q 2 HOURS-EVEN HOURS.NURSE EMPTIES URINALS @ NIGHT.
--- NOTE | 2018-04-03 05:56 | NUR ---
SLEEPING SINCE 2129 & SLEPT GOOD UNTIL 199.AWAKE @ 0200.ONE CARTOON GLUCERNA SHAKE GIVEN PER PEG @ 2100 & 0210.PEG FLUSHES W/ 70 ML H20.REMAINS NPO.ALL MEDS CRUSHED & GIVEN PER PEG.PEG SITE CLEANSED W/ H20 @ 0215.NO DRAINAGE.DAGOBERTO. REFUSED MEPILEX DRSG ON SKIN TEAR RIGHT FOREARM.APPEARS DRY.PT HAS OWN ANTIBIOTIC @ BEDSIDE W/C HE APPLIES TO SKIN TEAR.USED URINAL X9 DURING NIGHT. FROM 100 ML TO 250 ML URINE VOIDED.STAND TO VOID W/ SBA X3 ONLY.
[2018-04-03 09:12] VITALS: BP 133/72
--- NOTE | 2018-04-03 10:57 | NUR ---
PATIENT ALERT AND ORIENTED X 4. UP IN WHEELCHAIR WITH ASSIST OF 2. SIT ON COMMODE, PATIENT HAD LARGE BM. FORMED. SOME EARWAX NOTED, SAYS THEY HAVE USED DEBROX IN PAST. WILL INFORM DRCurtis DENIES PAIN OR DISCOMFORT, NO SIGN OF DISTRESS, CONT. WITH PLAN OF CARE.
--- NOTE | 2018-04-03 12:24 | NUR ---
PATIENT SITTING IN WHEELCHAIR, PROPELLS SELF AROUND IN THE ROOM. TUBE FEEDING ORDERED. UP AD GIOVANNY BUT INSTRUCTED TO USE CALL LIGHT. SPEECH CONT. TO WORK WITH SWALLOWING. REMAINS NPO. SHOWER BY PT, CHANGED DRESSING TO TRACH, AND COCCYX AREA. USES URINAL AT BEDSIDE, CONT. WITH CURRENT PLAN OF CARE AT THIS TIME.
--- NOTE | 2018-04-03 13:55 | NUR ---
BRANDY received call from Luis [facility] stating that pt insurance excluding formula and will need to go through and authorization process that might take 10 days. If pt needs Glucerna with as many cans as he is using now, cost would be $213.07 vs standard formula $97.02 for 7 days (without the approval) then once approved, pt would be responsible for 20 % for formula and supplies. If pt able to have a higher calorie formula vs more cans of the formula, the cost may be less as well. BRANDY to send labs to show glucose levels. BRANDY faxed initial information to [facility] for HH referral and received call from Lorrie in intake saying that they will be able to accept pt. HH will need clarification of PCP and doctor who will follow HH orders. BRANDY will continue to follow to assist with safe dc planning.
[2018-04-03 20:20] VITALS: BP 126/82
--- NOTE | 2018-04-04 00:33 | NUR ---
ASSUMED CARE @ 1917-04/03-.AWAKE IN BED ON [employer] WATCHING TV.HEELS OFF BED @ 1917 & BED ALARM PUT ON @ THIS TIME.SEE PAIN MANAGEMENT @ 2039. TUBE FEEDING GIVEN @ 2044 W/ ONE CAN GLUCERNA.PATIENT HELD FEEDING SYRINGE,POURED FEEDING SOLUTION & H2O FLUSH.CLAMPED FEEDING TUBE ALSO AFTER FEEDING.NPO.ON HOURLY ROUNDS.REFUSING TO TURN DUE TO BACK PAIN.
--- NOTE | 2018-04-04 05:04 | NUR ---
SLEEPING SINCE 2200 & SLEPT GOOD ALL NIGHT.USED URINAL X6 DURING NIGHT. NURSE EMPTIES URINAL @ NIGHT.PEG FEEDING GIVEN 2 CANS GLUCERNA @ 0200- FOLLLOW W/ 70 ML H20 FLUSH.
[2018-04-04 07:56] VITALS: BP 134/73
--- NOTE | 2018-04-04 15:48 | NUR ---
ASSUMMED CARE OF PT AT 0730, PT ALERT AND ORIENTED, TRANSFERS WITH SBA, GB, AMBULATES TO BATHROOM, GT INTACT, NO DRAINAGE, MINIMAL RESIDUAL, TOLERATES TUBE FEEDINGS WELL, PT EAGER TO LEARN HOW TO GIVE FEEDINGS, PT ABLE TO UNCLAMP TUBE, AND HOLD SYRINGE WHILE FEEDING INFUSING, PT ASKING APPROPRIATE QUESTIONS, DRESSING INTACT TO COCCYX AND TO TRACH SITE, COMPLAINS OF PAIN IN BACK, MEDICATED X 1 WITH IBUPROFEN BUT STATES DOES NOT HELP MUCH, PT NINILCHIK NEEDS FREQUENT REPETITION, PT USING CALL LIGHT APPROPRIATELY THIS SHIFT, PARTICIPATED IN ALL THERAPIES, HOURLY ROUNDING COMPLETED, ASSESSMENT COMPLETE, WILL CONTINUE TO MONITOR.
[2018-04-04 19:54] VITALS: BP 104/57
[2018-04-05 04:30] LABS: HEMATOCRIT 32.1 % (42.0-52.0); HEMOGLOBIN 10.6 gm/dL (14.0-18.0); MCH 29.6 pg (26.0-34.0); MCHC 32.9 g/dL (28.0-37.0); MCV 90.1 fL (80.0-100.0); RBC 3.56 mil/uL (4.50-6.00); RDW-CV 18.5 % (10.5-14.5); WBC 4.3 thou/uL (4.0-11.0)
[2018-04-05 04:38] LABS: CALCIUM 9.3 mg/dL (8.5-10.1); CREATININE 0.6 mg/dL (0.6-1.3); POTASSIUM 4.3 mmol/L (3.5-5.1)
--- NOTE | 2018-04-05 06:02 | NUR ---
assumed pateint care at 1900. patient alert and oriented times four. Teaching continued on PEG tube management. dressing to trach site is c/d/i. Complaints of pain noted and pain medication given via tube. Patient voiced being upset that he is not getting stronger medication for pain here. Did attempt to get out of bed one time through the night to stand and use urinal. steady stance noted.
[2018-04-05 07:00] VITALS: BP 115/65
--- NOTE | 2018-04-05 14:26 | NUR ---
ASSUMED CARE AT 0730. ALERT ORIENTED PLEASANT COOPERATIVE. HX OF RESP FAILURE AND ENCEPHALOPATHY. TRACH SITE IS HEALING MEPILEX CHANGED AFTER SHOWER. TRANSFERS WITH SBA G BELT AMBULATES TO BR TO VOID AND HAD A BM ABLE TO DO HYGEINE CLOTHING ADJUSTMENTS. C/O H/A AND BACK PAIN GIVEN IBUPROFEN AND OTHER MEDS PER PEG TUBE WITH 0800 FEEDING OF GLUCERNA 1.2 WITH WATER FLUSHES PT. ASSISTS WITH TUBE CLAMP UNCLAMP AND HOLDING TUBE. SITTING UP IN W/C AT BEDSIDE AFTER O.T. PROPELLS SELF IN ROOM AND INTO [place]HE[place]. USUNG CALL LIGHT APPROPRIATELY FOR ASSISTANCE. NPO TUBE FEEDINGS ONLY.
[2018-04-05 19:50] VITALS: BP 115/59
--- NOTE | 2018-04-06 05:17 | NUR ---
ASSUMED PATIENT CARE AT 1900. PATIENT RESTING IN BED, WATCHING TV. MINOR COMPLAINTS OF PAIN VERBALIZED, CONTROLLED WITH ORAL MEDICATION VIA PEG TUBE. TUBE PATENT. DRESSING TO TRACH SITE IS CLEAN AND INTACT. PATIENT DID NOT CALL OUT THROUGH THE NIGHT AND NO IMPULSIVENESS NOTED
[2018-04-06 08:12] VITALS: BP 120/76
--- NOTE | 2018-04-06 16:06 | NUR ---
ASSUMED CARE AT 0730. ALERT ORIENTED PLEASANT COOPERATIVE. HX OF RESP FAILURE AND ENCEPHALOPATHY. TRANSFERS WITH SBA G BELT AND AMBULATES TO BR TO VOID. ABLE TO DO CLOTHING ADJUSTMENTS. ENCOURAGED TO TURN IN SPECIALTY BED TO KEEP PRESSURE OFF SACRAL COCCYX AREA. DRESSING CHANGED AND PHOTO TAKEN THIS MORNING. USES CALL LIGHT APPROPRIATELY FOR ASSIST BED CHAIR ALARM FOR PT. SAFETY. NPO PEG TUBE FEEDINGS OF GLUCERNA 1.2 AND WATER FLUSHES TOLERATED AT 08 1230 PEG TUBE FLUSHES WELL. TRACH SITE HEALING WELL MEPILEX IN PLACE. C/O HEADACHE MEDICATED X 1 WITH IBUPROFEN AND EXTRA STRENGTH TYLENOL 2 TABS PO PER PEG. NO AGITATION OR ANY ISSUES WITH BEHAVIOR.
[2018-04-06 19:00] VITALS: BP 110/65
--- NOTE | 2018-04-07 01:39 | NUR ---
ASSUMED CARE @ 1927-04/06-SUN.AWAKE IN BED ON [employer]S WATCHING TV.WANTS SIDERAILS X3 UP ONLY.TWO URINALS W/IN REACH.HEELS OFF BED @ 1927.BED ALARM ALREADY ON @ 1927.NURSE EMPTIES URINALS @ NIGHT.SEE PAIN MANAGEMENT @ 2054.ON HOURLY ROUNDS.LCPC DOING ODD HOUR ROUNDS.SEE POSITION CHANGE CHARTING Q 2 HOURS-EVEN HOURS.
--- NOTE | 2018-04-07 06:47 | NUR ---
SLEEPING SINCE 2200 & SLEPT GOOD ALL NIGHT.NPO OBSERVED.USED URINAL X5. NURSE EMPTIES URINALS.TUBE FEEDINGS GIVEN @ 2100 & 0245.AT 2100-PATIENT HELD TUBING SYRINGE,POURED GLUCERNA,FLUSHED W/ H20,UNCLAMPED & CLAMPED.
[2018-04-07 07:30] VITALS: BP 114/71
--- NOTE | 2018-04-07 16:29 | NUR ---
ASSUMED CARE AT 0730. ALERT ORIENTED PLEASANT COOPERATIVE. HX OF RESP FAILURE ENCEPHALOPATHY. TRANSFERS WITH SBA G BELT AMBULATES TO BR TO VOID AND TO THERAPIES. USES CALL LIGHT APPROPRIATELY FOR ASSIST. PT. IS NPO TF PER PEG TUBE 2 CANS GLUCERNA 1.2 WITH WATER FLUSHES PT. IS DOING TF WITH SET UP AND SUPERVISION OF NURSE. MEDS PER PEG GIVEN BY NURSE. PROPELLS SELF IN W/C IN ROOM. TRACH SITE DOCUMENT CONTROLLER HEALING WELL. PARTICIPATING IN THERAPIES THROUGHOUT THE DAY. MEDICATED X 1 FOR C/O H/A AND GENERALIZED PAIN.
--- NOTE | 2018-04-07 18:49 | NUR ---
PT. REQUESTED WEDGE TO BE PLACED TO RT. HIP TO RELEIVE PRESSURE TO COCCYX. AREA INSTRUCTED ON REASON FOR TURNS IN BED AND WEIGHT SHIFTS IN W/C. SHOWED HIM PICTURES OF WOUND HE WANTS TO DO TURNS.
[2018-04-07 19:15] VITALS: BP 95/61
--- NOTE | 2018-04-08 00:49 | NUR ---
ASSUMED CARE @ 1919-04/07-SATURDAY.AWAKE IN BED ON HIS RIGHT SIDE W/ HOB UP,WATCHING TV & READING MAGAZINE @ THE SAME TIME.ON BED SPECIALTY.HEELS OFF BED @ 1919.BED ALARM PUT ON @ 1919.SEE PAIN MANAGEMENT @ 2032.OLD TRACH SITE- DAGOBERTO.HS COREG HELD.BP-95/61.EDUCATION GIVEN ON CRUSHING PILLS & MIXING W/ H20. PATIENT DID CRUSHED PILLS & OPEN CAPSULES,HELD FEEDING SYRINGE,POURING GLUCERNA,FLUSHING W/ H20,UNCLAMPING & CLAMPING & WASHING HANDS BEFORE & AFTER FEEDING.NURSE EMPTIES URINALS.ON HOURLY ROUNDS.CHIROPRACTOR SOLE PRACTITIONER DOING ODD HOUR ROUNDS.SEE POSITION CHANGE CHARTING Q 2 HOURS-EVEN HOURS.
[2018-04-08 02:25] VITALS: BP 126/71
--- NOTE | 2018-04-08 05:40 | NUR ---
REMAINS NPO.SLEEPING SINCE 2199 & SLEPT GOOD ALL NIGHT.AWAKE WHEN GIVING TUBE FEEDING @ 214.SO PATIENT HELD FEEDING SYRINGE.BRP X1 FOR MOD BM X1.USED URINAL X 3.PEG CARE DONE @ 219.NO DRESSING IN PEG SITE.BP @ .HS DOSE COREG HELD.BP RECHECKED @ .
[2018-04-08 09:06] VITALS: BP 121/70
--- NOTE | 2018-04-08 10:45 | NUR ---
PATIENT ALERT AND ORIENTED X 4, SITTING UP IN W/C. ADM OWN TUBE FEEDING WITH PROPER TECHNIQUE. WILL CONT. TO MONITOR. DENIES PAIN OR DISCOMFORT. USES URINAL, SBA WITH TRANSFERS AND AMBULATION.
[2018-04-08 20:20] VITALS: BP 109/57
--- NOTE | 2018-04-09 02:54 | NUR ---
ASSUMED CARE @ 1914-04/08-.AWAKE IN BED WATCHING TV.HOB UP .HEELS OFF BED @ 1914.BED ALARM PUT ON @ 1914.TRACH SITE-ELECTRIC MOTOR TESTER.HS DOSE COREG HELD.BP-109/57.SEE PAIN MANAGEMENT @ 2101.CRUSHED MEDS,MIXED W/ H20,POURED GLUCERNA & H20 FLUSH, CLAMPED & UN CLAMPED FEEDING TUBE @ 2099.RN GAVE TF @ 0200.REMAINS NPO.ON HOURLY ROUNDS,ADMINISTRATIVE AND PROGRAM SPECIALIST DOING ODD HOUR ROUNDS.SEE POSITION CHANGE CHARTING BY ADMINISTRATIVE AND PROGRAM SPECIALIST Q 2 HOURS-EVEN.
--- NOTE | 2018-04-09 05:13 | NUR ---
SLEEPING SINCE 0000-04/09-SAT & SLEPT GOOD ALL NIGHT.NURSE EMPTIES URINAL.USED URINALS X5.FOR VIDEO SWALLOW TEST TODAY.
[2018-04-09 05:40] VITALS: BP 116/63
[2018-04-09 08:15] VITALS: BP 120/68
[2018-04-09 13:53] VITALS: BP 120/68
--- NOTE | 2018-04-09 13:55 | NUR ---
BRANDY, Dr Card, med student Farzad met with pt to review team conference summary and plan for pt to dc home today with pt and with HH services to follow. Pt independent to mod I with functional mobility tasks and ADLs. Pt still needs 24/7 assistance due to problem solving and memory. Pt friend will be available to provide a ride home. BRANDY met with pt about DPOA/AD and he completed, SW notarized and placed copy in chart, and provided the original and 2 copies to pt. BRANDY called pt to review team conference summary and plan for pt to dc home today; pt expressed displeasure and helplessness and indicated that she was not certain pt will be compliant with his health. SW provided encouragement and discussed pt is regular diet so that he will no longer need tube feeding for main source of nutrition. BRANDY called [facility] and cancelled referral. BRANDY called [facility] HH and confirmed their acceptance of pt referral and discussed pt PCP is Amy Carmona NP and pt dc address to home with at [address] [place] [address]. [facility] accepted referral and BRANDY faxed final orders and med list to [facility].
[2018-04-09] MEDS ORDERED: METFORMIN HCL500 MG PER TUBE (14:05)
[2018-04-09] MEDS ORDERED: CARVEDILOL3.125 MG PER TUBE (14:21)
[2018-04-09] MEDS ORDERED: PREVACID30 MG PO (14:23)
[2018-04-09 14:39] VITALS: BP 120/68
[2018-04-09 14:41] VITALS: BP 120/68
--- NOTE | 2018-04-09 15:39 | NUR ---
PT IS ALERT AND ORIENTED X 4. FORGETFUL AT TIMES AND IMPULSIVE. DRESSING CHANGED ON COCCOYX-C/D/I AMD WOUND PICTURE TAKEN. PT HAS BRUISING ON ARMS BILAT. TRACH WOUND HEALING AND LEFT OPEN AIR. PEG TUBE PATENT. PT EDUCATION DONE IN AM FOR MEDICATION AND TUBE FEEDINGS. ABLE TO DEMONSTRATE BACK TO NURSE CRUSHING MEDICATIONS AND PROVIDE SELF FEEDING PER TUBE. PARTICIPATED IN THERAPIES IN AM. VIDEO SWALLOW COMPLETED IN AFTERNOON. CHANGE IN DIET-NO LONGER NPO. ABLE TO EAT REGULAR DIET-NECTAR THICK LIQUIDS. PT GIVEN DISCHARGE INSTRUCTIONS AND PRESCRIPTIONS. PT LEFT UNIT WITH NURSE WITH PERSONAL BELONGINGS TO LEAVE WITH FRIEND BY PRIVATE CAR @ 1500.
[2018-04-09 15:59] VITALS: BP 120/68
== END 2018-04-09 15:00 | disposition home health service (06) | DRG 189 ==
LOC: M.REH 16:28
PROVIDERS: Internal Medicine; ADMIT Physical Medicine & Rehabilitation
DX: J96.20 Acute and chronic respiratory failure, unspecified whether with hypoxia or hypercapnia (principal); A41.9 Sepsis, unspecified organism; G92 Toxic encephalopathy; I21.4 Non-ST elevation (NSTEMI) myocardial infarction; J69.0 Pneumonitis due to inhalation of food and vomit; M62.82 Rhabdomyolysis; N17.9 Acute kidney failure, unspecified; L03.317 Cellulitis of buttock; E44.0 Moderate protein-calorie malnutrition; Z68.1 Body mass index [BMI] 19.9 or less, adult; R13.10 Dysphagia, unspecified; F03.90 Unspecified dementia, unspecified severity, without behavioral disturbance, psychotic disturbance, mood disturbance, and anxiety; R74.8 Abnormal levels of other serum enzymes; F17.210 Nicotine dependence, cigarettes, uncomplicated; R53.81 Other malaise; E11.9 Type 2 diabetes mellitus without complications; F13.21 Sedative, hypnotic or anxiolytic dependence, in remission; Z86.73 Personal history of transient ischemic attack (TIA), and cerebral infarction without residual deficits; Z93.0 Tracheostomy status; Z79.4 Long term (current) use of insulin; Z79.899 Other long term (current) drug therapy

== ENCOUNTER → 2018-04-21 | Outpatient (CLI) | payer OTHER ==
[~2018-04-21] MED LIST changes: +CARVEDILOL3.125 MG PER TUBE; +METFORMIN HCL500 MG PER TUBE; +PREVACID30 MG PO
== END ==
LOC: M.WC 04-14 09:00
DX: E11.622 Type 2 diabetes mellitus with other skin ulcer (principal); L89.153 Pressure ulcer of sacral region, stage 3; L98.492 Non-pressure chronic ulcer of skin of other sites with fat layer exposed; L89.303 Pressure ulcer of unspecified buttock, stage 3; L98.411 Non-pressure chronic ulcer of buttock limited to breakdown of skin; I10 Essential (primary) hypertension; F11.20 Opioid dependence, uncomplicated; F17.200 Nicotine dependence, unspecified, uncomplicated; F03.90 Unspecified dementia, unspecified severity, without behavioral disturbance, psychotic disturbance, mood disturbance, and anxiety

== ENCOUNTER → 2018-04-28 | Outpatient (CLI) | payer OTHER | LOC: M.WC 09:00 | DX: E11.622 Type 2 diabetes mellitus with other skin ulcer (principal); L89.153 Pressure ulcer of sacral region, stage 3; L98.492 Non-pressure chronic ulcer of skin of other sites with fat layer exposed; L89.303 Pressure ulcer of unspecified buttock, stage 3; L98.411 Non-pressure chronic ulcer of buttock limited to breakdown of skin; I10 Essential (primary) hypertension; F11.20 Opioid dependence, uncomplicated; F17.200 Nicotine dependence, unspecified, uncomplicated; F03.90 Unspecified dementia, unspecified severity, without behavioral disturbance, psychotic disturbance, mood disturbance, and anxiety ==

== ENCOUNTER → 2018-05-01 | Outpatient (CLI) | payer OTHER | LOC: M.WC 04:49 | DX: E11.622 Type 2 diabetes mellitus with other skin ulcer (principal); L89.153 Pressure ulcer of sacral region, stage 3; L98.491 Non-pressure chronic ulcer of skin of other sites limited to breakdown of skin; L89.303 Pressure ulcer of unspecified buttock, stage 3; L98.411 Non-pressure chronic ulcer of buttock limited to breakdown of skin; I10 Essential (primary) hypertension; F11.20 Opioid dependence, uncomplicated; F17.200 Nicotine dependence, unspecified, uncomplicated; F03.90 Unspecified dementia, unspecified severity, without behavioral disturbance, psychotic disturbance, mood disturbance, and anxiety ==

== ENCOUNTER → 2018-05-05 | Outpatient (CLI) | payer OTHER | LOC: M.WC 04:37 | DX: E11.622 Type 2 diabetes mellitus with other skin ulcer (principal); L89.153 Pressure ulcer of sacral region, stage 3; L89.303 Pressure ulcer of unspecified buttock, stage 3; L98.492 Non-pressure chronic ulcer of skin of other sites with fat layer exposed; L98.411 Non-pressure chronic ulcer of buttock limited to breakdown of skin; I10 Essential (primary) hypertension; F11.20 Opioid dependence, uncomplicated; F17.200 Nicotine dependence, unspecified, uncomplicated; F03.90 Unspecified dementia, unspecified severity, without behavioral disturbance, psychotic disturbance, mood disturbance, and anxiety ==

== ENCOUNTER → 2018-05-12 | Outpatient (CLI) | payer OTHER | LOC: M.WC 01:07 | DX: E11.622 Type 2 diabetes mellitus with other skin ulcer (principal); L89.153 Pressure ulcer of sacral region, stage 3; L98.492 Non-pressure chronic ulcer of skin of other sites with fat layer exposed; L89.303 Pressure ulcer of unspecified buttock, stage 3; L98.411 Non-pressure chronic ulcer of buttock limited to breakdown of skin; I10 Essential (primary) hypertension; F11.20 Opioid dependence, uncomplicated; F03.90 Unspecified dementia, unspecified severity, without behavioral disturbance, psychotic disturbance, mood disturbance, and anxiety; F17.200 Nicotine dependence, unspecified, uncomplicated ==

== ENCOUNTER → 2018-05-19 | Outpatient (CLI) | payer OTHER | LOC: M.WC 00:59 | DX: E11.622 Type 2 diabetes mellitus with other skin ulcer (principal); L89.153 Pressure ulcer of sacral region, stage 3; L98.492 Non-pressure chronic ulcer of skin of other sites with fat layer exposed; L89.303 Pressure ulcer of unspecified buttock, stage 3; L98.411 Non-pressure chronic ulcer of buttock limited to breakdown of skin; I10 Essential (primary) hypertension; F11.20 Opioid dependence, uncomplicated; F17.200 Nicotine dependence, unspecified, uncomplicated; F03.90 Unspecified dementia, unspecified severity, without behavioral disturbance, psychotic disturbance, mood disturbance, and anxiety ==

== ENCOUNTER → 2018-05-26 | Outpatient (CLI) | payer OTHER | LOC: M.WC 01:07 | DX: E11.622 Type 2 diabetes mellitus with other skin ulcer (principal); L89.153 Pressure ulcer of sacral region, stage 3; L98.492 Non-pressure chronic ulcer of skin of other sites with fat layer exposed; L89.303 Pressure ulcer of unspecified buttock, stage 3; L98.411 Non-pressure chronic ulcer of buttock limited to breakdown of skin; I10 Essential (primary) hypertension; F17.200 Nicotine dependence, unspecified, uncomplicated; F11.20 Opioid dependence, uncomplicated; F03.90 Unspecified dementia, unspecified severity, without behavioral disturbance, psychotic disturbance, mood disturbance, and anxiety ==

== ENCOUNTER → 2018-06-02 | Outpatient (CLI) | payer OTHER | LOC: M.WC 02:55 | DX: E11.622 Type 2 diabetes mellitus with other skin ulcer (principal); L98.492 Non-pressure chronic ulcer of skin of other sites with fat layer exposed; L89.153 Pressure ulcer of sacral region, stage 3; I10 Essential (primary) hypertension; F03.90 Unspecified dementia, unspecified severity, without behavioral disturbance, psychotic disturbance, mood disturbance, and anxiety; F17.200 Nicotine dependence, unspecified, uncomplicated ==

== ENCOUNTER → 2018-06-09 | Outpatient (CLI) | payer OTHER | LOC: M.WC 00:58 | DX: E11.622 Type 2 diabetes mellitus with other skin ulcer (principal); L89.153 Pressure ulcer of sacral region, stage 3; L98.491 Non-pressure chronic ulcer of skin of other sites limited to breakdown of skin; I10 Essential (primary) hypertension; F17.200 Nicotine dependence, unspecified, uncomplicated; F11.20 Opioid dependence, uncomplicated; F03.90 Unspecified dementia, unspecified severity, without behavioral disturbance, psychotic disturbance, mood disturbance, and anxiety ==

== ENCOUNTER → 2018-06-16 | Outpatient (CLI) | payer OTHER | LOC: M.WC 01:13 | DX: E11.622 Type 2 diabetes mellitus with other skin ulcer (principal); L89.153 Pressure ulcer of sacral region, stage 3; L98.492 Non-pressure chronic ulcer of skin of other sites with fat layer exposed; I10 Essential (primary) hypertension; F17.200 Nicotine dependence, unspecified, uncomplicated; F11.20 Opioid dependence, uncomplicated; F03.90 Unspecified dementia, unspecified severity, without behavioral disturbance, psychotic disturbance, mood disturbance, and anxiety ==

== ENCOUNTER → 2018-06-23 | Outpatient (CLI) | payer OTHER | LOC: M.WC 08:00 | DX: E11.622 Type 2 diabetes mellitus with other skin ulcer (principal); L89.153 Pressure ulcer of sacral region, stage 3; L98.492 Non-pressure chronic ulcer of skin of other sites with fat layer exposed; I10 Essential (primary) hypertension; F11.20 Opioid dependence, uncomplicated; F17.200 Nicotine dependence, unspecified, uncomplicated; F03.90 Unspecified dementia, unspecified severity, without behavioral disturbance, psychotic disturbance, mood disturbance, and anxiety ==

== ENCOUNTER → 2018-06-30 | Outpatient (CLI) | payer OTHER | LOC: M.WC 00:54 | DX: E11.622 Type 2 diabetes mellitus with other skin ulcer (principal); L89.153 Pressure ulcer of sacral region, stage 3; L98.492 Non-pressure chronic ulcer of skin of other sites with fat layer exposed; I10 Essential (primary) hypertension; F17.200 Nicotine dependence, unspecified, uncomplicated; F11.20 Opioid dependence, uncomplicated; F03.90 Unspecified dementia, unspecified severity, without behavioral disturbance, psychotic disturbance, mood disturbance, and anxiety ==

== ENCOUNTER → 2018-07-07 | Outpatient (CLI) | payer OTHER | LOC: M.WC 01:19 | DX: E11.622 Type 2 diabetes mellitus with other skin ulcer (principal); L98.492 Non-pressure chronic ulcer of skin of other sites with fat layer exposed; L89.153 Pressure ulcer of sacral region, stage 3; I10 Essential (primary) hypertension; J18.9 Pneumonia, unspecified organism; F03.90 Unspecified dementia, unspecified severity, without behavioral disturbance, psychotic disturbance, mood disturbance, and anxiety; F17.200 Nicotine dependence, unspecified, uncomplicated ==

== ENCOUNTER → 2018-07-21 | Outpatient (CLI) | payer OTHER | LOC: M.WC 01:10 | DX: E11.622 Type 2 diabetes mellitus with other skin ulcer (principal); L89.153 Pressure ulcer of sacral region, stage 3; L98.492 Non-pressure chronic ulcer of skin of other sites with fat layer exposed; I10 Essential (primary) hypertension; F17.200 Nicotine dependence, unspecified, uncomplicated; F11.20 Opioid dependence, uncomplicated; F03.90 Unspecified dementia, unspecified severity, without behavioral disturbance, psychotic disturbance, mood disturbance, and anxiety ==

== ENCOUNTER → 2018-07-28 | Outpatient (CLI) | payer OTHER | LOC: M.WC 01:00 | DX: E11.622 Type 2 diabetes mellitus with other skin ulcer (principal); L89.153 Pressure ulcer of sacral region, stage 3; L98.492 Non-pressure chronic ulcer of skin of other sites with fat layer exposed; S51.802A Unspecified open wound of left forearm, initial encounter; I10 Essential (primary) hypertension; F11.20 Opioid dependence, uncomplicated; F17.200 Nicotine dependence, unspecified, uncomplicated; F03.90 Unspecified dementia, unspecified severity, without behavioral disturbance, psychotic disturbance, mood disturbance, and anxiety; X58.XXXA Exposure to other specified factors, initial encounter; Y93.89 Activity, other specified; Y92.89 Other specified places as the place of occurrence of the external cause; Y99.8 Other external cause status ==

== ENCOUNTER → 2018-08-04 | Outpatient (CLI) | payer OTHER | LOC: M.WC 10:54 | DX: E11.622 Type 2 diabetes mellitus with other skin ulcer (principal); L89.153 Pressure ulcer of sacral region, stage 3; L98.492 Non-pressure chronic ulcer of skin of other sites with fat layer exposed; S51.802D Unspecified open wound of left forearm, subsequent encounter; F17.200 Nicotine dependence, unspecified, uncomplicated; X58.XXXD Exposure to other specified factors, subsequent encounter ==

== ENCOUNTER → 2018-08-11 | Outpatient (CLI) | payer OTHER | LOC: M.WC 01:10 | DX: E11.622 Type 2 diabetes mellitus with other skin ulcer (principal); L89.153 Pressure ulcer of sacral region, stage 3; L98.491 Non-pressure chronic ulcer of skin of other sites limited to breakdown of skin; I10 Essential (primary) hypertension; F17.200 Nicotine dependence, unspecified, uncomplicated; F11.20 Opioid dependence, uncomplicated; F03.90 Unspecified dementia, unspecified severity, without behavioral disturbance, psychotic disturbance, mood disturbance, and anxiety ==

== ENCOUNTER → 2018-08-18 | Outpatient (CLI) | payer OTHER | LOC: M.WC 02:19 | DX: E11.622 Type 2 diabetes mellitus with other skin ulcer (principal); L89.153 Pressure ulcer of sacral region, stage 3; L98.491 Non-pressure chronic ulcer of skin of other sites limited to breakdown of skin; I10 Essential (primary) hypertension; A41.9 Sepsis, unspecified organism; J69.0 Pneumonitis due to inhalation of food and vomit; F17.200 Nicotine dependence, unspecified, uncomplicated; F03.90 Unspecified dementia, unspecified severity, without behavioral disturbance, psychotic disturbance, mood disturbance, and anxiety ==

== ENCOUNTER → 2018-09-02 | Outpatient (CLI) | payer OTHER | LOC: M.WC 05:19 | DX: E11.622 Type 2 diabetes mellitus with other skin ulcer (principal); L89.153 Pressure ulcer of sacral region, stage 3; L98.492 Non-pressure chronic ulcer of skin of other sites with fat layer exposed; L89.303 Pressure ulcer of unspecified buttock, stage 3; L98.411 Non-pressure chronic ulcer of buttock limited to breakdown of skin; I10 Essential (primary) hypertension; F17.200 Nicotine dependence, unspecified, uncomplicated; F03.90 Unspecified dementia, unspecified severity, without behavioral disturbance, psychotic disturbance, mood disturbance, and anxiety; F11.20 Opioid dependence, uncomplicated ==

== ENCOUNTER → 2018-09-09 | Outpatient (CLI) | payer OTHER | LOC: M.WC 05:27 | DX: E11.622 Type 2 diabetes mellitus with other skin ulcer (principal); L89.153 Pressure ulcer of sacral region, stage 3; L98.492 Non-pressure chronic ulcer of skin of other sites with fat layer exposed; I10 Essential (primary) hypertension; F03.90 Unspecified dementia, unspecified severity, without behavioral disturbance, psychotic disturbance, mood disturbance, and anxiety; F17.200 Nicotine dependence, unspecified, uncomplicated; Z87.01 Personal history of pneumonia (recurrent) ==

== ENCOUNTER → 2018-09-16 | Outpatient (CLI) | payer OTHER | LOC: M.WC 05:14 | DX: E11.622 Type 2 diabetes mellitus with other skin ulcer (principal); L89.153 Pressure ulcer of sacral region, stage 3; L89.303 Pressure ulcer of unspecified buttock, stage 3; L98.492 Non-pressure chronic ulcer of skin of other sites with fat layer exposed; L98.411 Non-pressure chronic ulcer of buttock limited to breakdown of skin; I10 Essential (primary) hypertension; F17.200 Nicotine dependence, unspecified, uncomplicated; F11.20 Opioid dependence, uncomplicated; F03.90 Unspecified dementia, unspecified severity, without behavioral disturbance, psychotic disturbance, mood disturbance, and anxiety ==

== ENCOUNTER → 2018-09-30 | Outpatient (CLI) | payer OTHER | LOC: M.WC 05:17 | DX: E11.622 Type 2 diabetes mellitus with other skin ulcer (principal); L89.153 Pressure ulcer of sacral region, stage 3; L98.498 Non-pressure chronic ulcer of skin of other sites with other specified severity; E46 Unspecified protein-calorie malnutrition; I10 Essential (primary) hypertension; F17.200 Nicotine dependence, unspecified, uncomplicated; F03.90 Unspecified dementia, unspecified severity, without behavioral disturbance, psychotic disturbance, mood disturbance, and anxiety; F11.20 Opioid dependence, uncomplicated ==